=== PATIENT | female | born 1960 | race Caucasian/White ===

== ENCOUNTER 2021-11-01 01:08 | Emergency (ER) | payer BC, MEDICAID, SELFPAY ==
[2021-11-01 01:09] VITALS: PULSE 85; RESP 18; TEMP 36.6; O2SAT 95; BMI 31.5
--- NOTE | 2021-11-01 01:14 | EDS_ITS ---
HPI HPI - Fall History of Present Illness Chief Complaint: Fall Detail of Chief Complaint: Lateral left thigh pain status post fall Informant: patient Occured/Mechanism Occurred: Today (At 12 noon) Mechanism/Context: Yes slip Narrative: Slipped on ice Fall from Height (ft): Attending physician Usually ambulates: Without assistance Pain/Injury Pain Location: lower extremity (Lateral left thigh) Quality of Pain: Dull and Aching Current Severity: Mild Maximum Severity: Moderate Worsened by: Sitting and walking Relieved by: Nothing Associated Symptoms Associated Symptoms: Negative for Parasthesias, Weakness, Loss of function, Inability to ambulate, Loss of consciousness and Amnesia Narrative Narrative: Patient is 61-year-old woman who slipped on ice. She landed on her left side. She had minimal pain when this occurred. She has increased pain and reason she presents. She is on a baby aspirin a day. She is on no anticoagulant. Tetanus Immunization: >10 years Prior similar symptoms: No Recent Illness/Hospitalization: No PFSH PFSH Home Medications hydrocodone-acetaminophen 1 tab PO Q6H PRN PRN 3 Days #10 tablet 11/01/21 [Rx Last Taken Unknown] Allergy/AdvReac Type Severity Reaction Status Date / Time acetaminophen Allergy Hives Verified 11/01/21 01:18 [From Tylenol-Codeine #3] codeine Allergy Hives Verified 11/01/21 01:18 [From Tylenol-Codeine #3] amoxicillin [From Augmentin] AdvReac Other Verified 11/01/21 01:18 clavulanic acid AdvReac Other Verified 11/01/21 01:18 [From Augmentin] Penicillins AdvReac Other Verified 11/01/21 01:18 Sulfa (Sulfonamide AdvReac Rash Verified 11/01/21 01:18 Antibiotics) Social History (Updated 11/01/21 @ 01:[address] Chuy Tejeda MD) household members: spouse substance use type: does not use ROS ROS ED Constitutional Constitutional ED: Denies chills, fever(s), subjective, sweats or weight loss Eyes Eyes: Denies blurry vision, change in vision or diplopia Cardiovascular Cardiovascular: Denies chest pain Respiratory/Chest Respiratory/Chest: Denies dyspnea Genitourinary Genitourinary ED: Denies dysuria, hematuria or urinary frequency Musculoskeletal Musculoskeletal: Reports other Details: Left thigh ; Denies arthralgias, back pain, myalgias or neck pain Integumentary Denies abscess, Abrasions or rash Neurologic Neurologic: Denies paresthesias or weakness Hematologic/Lymphatic Hematologic/Lymphatic: Denies easy bleeding or easy bruising EXAM Physical Exam Const Vital Signs: 11/01/21 01:09 Temperature 98 F Temperature Source Temporal Pulse Rate 85 Respiratory Rate 18 Pulse Ox 95 Oxygen Delivery Method Room Air Positive well nourished, well developed and obese General Appearance ED: well developed and NAD Nutritional Appearance: obese HEENT Reports normocephalic and TM's clear; Denies other atraumatic; Negative for contusion, hematoma or other Tympanic Membrane ED: Yes TM's clear Eyes PERRL and EOMs intact bilaterally General Eye ED: Negative for pale conjunctiva or scleral icterus Neck full ROM, no lymphadenopathy and supple Neck Narrative: C-spine cleared per Nexus criteria. Resp normal respiratory effort Cardio regular rate and regular rhythm Back/Spine no CVA tenderness Extremity full ROM, normal capillary refill, no joint enlargement, no clubbing, cyanosis or edema, no calf tenderness and no pedal edema; Negative for normal to inspection General Extremety ED: Yes normal exam except as noted General Extremity: normal exam except as noted Left Lower Extremity: upper leg Positive for other (Hematoma lateral left thigh) Neuro oriented x3, CN's II-XII intact bilaterally and moves all extremities [place] Coma Scale: document GCS findings Spontaneous Obeys Commands Oriented 15 Sensorium / Orientation: alert Motor Exam: strength 5/5 throughout Psych mental status grossly normal and thought process normal Skin General Skin Exam: other Hematoma left thigh Lesions: no lesions Rashes: no rashes Trauma: Negative for abrasion, laceration or puncture MDM MDM MDM Narrative Medical decision making narrative: Patient has a hematoma. She is able to move all of her extremities. She has no pain the patient of the pelvis, iliac wing, pubic symphysis or ischial tuberosity. There is pain ovation where she has a hematoma. Since she is status post renal transplant she was treated with opiate analgesics. Discharge Plan Triage Chief Complaint: Fall ED Provider: Chuy Tejeda Dx/Rx/DC Orders Clinical Impression: Contusion of left hip and thigh Instructions: ED Hip Contusion Prescriptions: New hydrocodone-acetaminophen [hydrocodone-acetaminophen] 1 TABLET tablet 1 tab PO Q6H PRN PRN (Reason: Pain) 3 Days Qty: 10 RF: 0 Referrals: Doctor,Your [STAFF PHYSICIAN] - 1 Week if not improving Activity Restrictions/Additional Instructions: Apply ice to left thigh 6-8 times a day for the next 3 to 5 days Disposition Disposition: Home, Self Care
[2021-11-01] MEDS: HYDROcodone Bitartrate/Apap 5/325 Tablet PO (01:39)
== END 2021-11-01 01:42 | disposition home or self-care (01) ==
LOC: ED 01:34
PROVIDERS: Emergency Provider Emergency Medicine; PCP Internal Medicine; Visit Provider Emergency Medicine
DX: S70.02XA Contusion of left hip, initial encounter (principal); W00.0XXA Fall on same level due to ice and snow, initial encounter; Z94.0 Kidney transplant status
CPT/HCPCS: 99282

== ENCOUNTER 2023-10-12 16:07 | Emergency (ER) | payer BC, MEDICAID, SELFPAY ==
[2023-10-12] VITALS (8 sets, daily range): BP systolic 110–188; BP diastolic 62–141; PULSE 108–119; RESP 19–28; TEMP 37.2; O2SAT 85–94; BMI 33.5
--- NOTE | 2023-10-12 17:40 | EX.ED.DYSGE1 ---
HPI History of Present Illness Chief Complaint: General Illness Informant: patient and spouse/S.O. Narrative Narrative: Here with significant other not feeling well since yesterday nausea and vomiting total 3 episodes no hematemesis. Slight loose stools. No fevers or headaches. Slight myalgias. Slight cough. History of renal transplant 4 years ago on immunosuppressants. Did not take her medications this morning. History of diabetes. 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 Denies urinary symptoms. She did get the flu vaccination this year. Denies sick contacts. 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 Home Medications amlodipine 5 mg tablet 5 mg PO DAILY BLOOD PRESSURE 11/01/21 [History Last Taken Unknown] everolimus (immunosuppressive) 0.5 mg tablet 0.5 mg PO Q12H TRANSPLANT REJECTION PREVENTATIVE 11/01/21 [History Last Taken Unknown] glimepiride 1 mg tablet 1 mg PO DAILY BLOOD SUGARS 11/01/21 [History Last Taken Unknown] levothyroxine 50 mcg tablet 50 mcg PO DAILY THYROID 11/01/21 [History Last Taken Unknown] metformin 500 mg tablet 500 mg PO DAILY BLOOD SUGARS 11/01/21 [History Last Taken Unknown] omeprazole 20 mg capsule,delayed release 20 mg PO DAILY ACID REFLUX 11/01/21 [History Last Taken Unknown] pravastatin 40 mg tablet 40 mg PO DAILY CHOLESTEROL 11/01/21 [History Last Taken Unknown] prednisone 5 mg tablet 5 mg PO DAILY STEROID 11/01/21 [History Last Taken Unknown] tacrolimus 1 mg capsule, immediate-release 1 mg PO Q12H TRANSPLANT REJECTION PREVENTATIVE 11/01/21 [History Last Taken Unknown] aspirin 81 mg tablet,delayed release (Adult Aspirin Regimen) 81 mg PO DAILY HEART HEALTH 10/12/23 [History Last Taken Unknown] ergocalciferol (vitamin D2) 50 mcg (2,000 unit) capsule 50 mcg PO DAILY SUPPLEMENT 10/12/23 [History Last Taken Unknown] hydrocodone-acetaminophen 5-325mg 5mg-325mg 1 tab PO Q6H PRN PAIN 10/12/23 [History Last Taken Unknown] pantoprazole 40 mg tablet,delayed release 40 mg PO DAILY ACID REFLUX 10/12/23 [History Last Taken Unknown] Allergy/AdvReac Type Severity Reaction Status Date / Time acetaminophen Allergy Hives Verified 10/12/23 16:09 [From Tylenol-Codeine #3] Cephalosporins Allergy Other Verified 10/12/23 16:16 codeine Allergy Hives Verified 10/12/23 16:09 [From Tylenol-Codeine #3] doxycycline Allergy Hives Verified 10/12/23 16:16 amoxicillin [From Augmentin] AdvReac Other Verified 10/12/23 16:09 clavulanic acid AdvReac Other Verified 10/12/23 16:09 [From Augmentin] Penicillins AdvReac Other Verified 10/12/23 16:09 Sulfa (Sulfonamide AdvReac Rash Verified 10/12/23 16:09 Antibiotics) Surgical History Kidney transplant status Social History household members: spouse Smoking Status: Never smoker substance use type: does not use ROS ROS ED Constitutional Constitutional ED: Denies chills, fever(s) or sweats Eyes Eyes: Denies change in vision ENT ENT ED: Denies dysphagia or sore throat Cardiovascular Cardiovascular: Denies chest pain, leg edema, palpitations or racing heartbeat Respiratory/Chest Respiratory/Chest: Reports cough; Denies dyspnea or dyspnea on exertion Gastrointestinal Gastrointestinal: Reports diarrhea, nausea and vomiting; Denies abdominal pain Genitourinary Genitourinary ED: Denies dysuria, hematuria or urinary frequency Musculoskeletal Musculoskeletal: Reports myalgias; Denies back pain, extremity pain or neck pain Integumentary Denies rash or wounds Neurologic Neurologic: Denies headache(s), paresthesias or weakness EXAM Physical Exam Const Vital Signs: 10/12/23 16:09 10/12/23 17:39 10/12/23 19:31 Temperature 99 F Temperature Source Temporal Pulse Rate 118 H Respiratory Rate 22 H Respiratory Effort Normal Non-Labored Respiratory Pattern Normal Blood Pressure 123/62 H Blood Pressure Mean 82 Pulse Ox 94 85 Oxygen Delivery Method Room Air Room Air Oxygen Flow Rate (L/min) 10/12/23 19:31 10/12/23 19:32 10/12/23 19:24 Temperature Temperature Source Pulse Rate 119 H Respiratory Rate 28 H Respiratory Effort Respiratory Pattern Blood Pressure Blood Pressure Mean Pulse Ox 90 92 85 Oxygen Delivery Method Nasal Cannula Nasal Cannula Oxygen Flow Rate (L/min) 3 4 10/12/23 20:29 10/12/23 21:01 10/12/23 22:01 Temperature Temperature Source Pulse Rate 108 H 110 H 119 H Respiratory Rate 28 H 22 H 19 H Respiratory Effort Respiratory Pattern Blood Pressure 110/88 H 188/141 H Blood Pressure Mean 96 149 176 Pulse Ox 92 93 Oxygen Delivery Method Oxygen Flow Rate (L/min) 10/12/23 23:00 Temperature Temperature Source Pulse Rate Respiratory Rate Respiratory Effort Respiratory Pattern Blood Pressure 111/76 Blood Pressure Mean 87 Pulse Ox Oxygen Delivery Method Oxygen Flow Rate (L/min) Positive well nourished and well developed Constitutional Narrative: Nontoxic General Appearance ED: well developed and NAD HEENT HEENT Narrative: Mild dry mucosal membranes normocephalic and atraumatic Eyes PERRL, EOMs intact bilaterally and conjunctivae normal General Eye ED: Yes normal appearance of both eyes Neck no lymphadenopathy and supple General: Negative for tenderness Chest Wall Chest: Negative for tenderness Resp normal respiratory effort and normal air movement Effort and Inspection: symmetric chest movement; Negative for respiratory distress Cardio regular rhythm and no murmurs Rate: tachycardic Peripheral Pulses: pulses 2+ throughout GI normal to inspection, nondistended, normoactive bowel sounds and non-tender GI Narrative: Negative Rapp's or McBurney's tenderness. Palpation: Negative for guarding or rebound tenderness present Back/Spine no CVA tenderness and no thoracic nor lumbar tenderness Extremity normal to inspection General Extremety ED: Negative for edema or tenderness General Extremity: Negative for edema Neuro oriented x3 and no sensory deficits noted Sensorium / Orientation: awake and alert Skin no rashes or lesions noted and no wounds Sepsis Attestation Sepsis Attestation: Agree w/Sepsis Date exam was performed: 10/12/23 Time exam was performed: 22:50 Possible Source of Sepsis: Pulmonary Sepsis Organ Dysfunction Criteria Present: Creatinine > 2.0 mg/dL Fluid Resuscitation Fluid Resuscitation ordered: Lesser volume fluid bolus ordered (Fluid given for dehydration and renal sufficiency. Does not meet criteria for 30 cc/kg bolus.) Amount of fluid ordered: 1,000 Reason for lesser fluid bolus:: Renal Failure and Other MDM MDM MDM Narrative Medical decision making narrative: Interventions / MDM: Differential diagnosis: Pneumonia, sepsis, electrolyte abnormalities, viral syndrome, dehydration Diagnosis considered but do not suspect: UTI, urine negative for infection My EKG interpretation: N/A Imaging independently reviewed and interpreted by myself: 2 view chest x-ray: Left lower lobe infiltrate. CT scan abdomen pelvis noncontrast: Obstructive uropathy with 2 stones with hydro-. This was discussed with radiology. External documents reviewed: N/A Test considered but not ordered:N/A ED course: Patient afebrile slight tachycardia. Dry mucosal membranes. IV established for fluids. Basic labs. Chest x-ray, COVID and influenza sent for further evaluation. Zofran ordered for nausea. Patient allergy to Tylenol. She has renal transplant history therefore avoid NSAIDs. COVID and influenza returned negative. Her white count returned at 23.6. With her tachycardia I did add sepsis labs with lactic acid blood cultures procalcitonin along with urine and urine cultures. Creatinine returned at 2.5, normal potassium. No old labs in the system compare however patient had MyChart on her phone her creatinine 1.325 days ago. Lactic acid 2.0 procalcitonin 8.6. Patient with multiple allergies to penicillin family along with cephalosporin. Discussed her cephalosporin stating increasing anxiety and causing her not to sleep. She did not want to risk the symptoms. Reevaluation hypoxic pulse ox 86 with good waveform she is placed on oxygen. She spoke with hospitalist Dr. Noble, who did evaluate patient in the ED. We elected to start Levaquin and vancomycin with her transplant history and allergies. She came to evaluate the patient in the ED. ABG was ordered pH 7.31, CO2 25 PaO2 of 64. Ordered for noncontrast CT scan for evaluation of her MAXIMO. Results CT scan concerns for obstructive uropathy urine negative for infection. Due to patient having obstructive uropathy in a transplanted organ, she required transfer. Page was placed out to [facility] with transplant physician Dr. Brown discussed patient's history findings with pneumonia and hypoxia MAXIMO in the setting obstructive uropathy with no infection or pain in her abdomen. She has been excepted and arrangements currently being made for transfer up to [facility]. Blood pressure maintaining. Patient in no respiratory distress. Re-evaluation: stable Disposition discussed with patient/family/significant other: Patient and significant other Case discussed with consulting clinician: Hospitalist, renal transplant [facility], This note was generated with DoYouRemember dictation software. It may contain incorrect words, spelling, and punctuation that were not noted in checking the note before signing. Lab Data Attestation: I reviewed the patient's lab results. Labs: Laboratory Results - last 24 hr 10/12/23 10/12/23 10/12/23 17:52 18:20 19:27 WBC 23.6 H RBC 4.93 Hgb 12.7 Hct 40.4 MCV 81.9 MCH 25.8 L MCHC 31.4 L RDW Std Deviation 47.5 H RDW Coeff of Sea 15.9 H Plt Count 245 MPV 10.9 Immature Gran % (Auto) 0.800 Neut % (Auto) 82.6 H Lymph % (Auto) 4.4 L [place] % (Auto) 5.8 Eos % (Auto) 5.9 H Baso % (Auto) 0.5 Absolute Neuts (auto) 19.5 H Absolute Lymphs (auto) 1.03 Nucleated RBC % 0 Differential Comment SCANNED PT 17.1 H INR 1.4 APTT 35.1 Sodium 134 L Potassium 3.8 Chloride 110 H Carbon Dioxide 16.0 L Anion Gap 8 BUN 31 H Creatinine 2.55 H Estim Creat Clear Calc 15.80 Est GFR (MDRD) Af Amer 24 L Est GFR (MDRD) Non-Af 20 L BUN/Creatinine Ratio 12.2 Glucose 125 H Lactic Acid 2.0 Calcium 9.2 Total Bilirubin 0.60 Direct Bilirubin 0.28 AST 27 ALT 28 Alkaline Phosphatase 95 Total Protein 6.5 Albumin 2.8 L Globulin 3.7 Procalcitonin 8.16 H Urine Color Yellow Urine Clarity Clear Urine pH 6.5 Ur Specific [place] 1.010 Urine Protein 500 H Urine Glucose (UA) 250 H Urine Ketones 15 H Urine Occult Blood 150 H Urine Nitrite Negative Urine Bilirubin Negative Urine Urobilinogen Normal Ur Leukocyte Esterase Negative Urine RBC 0-5 SEEN Urine WBC 5-10 SEEN Ur Squamous Epith Cells 0 SEEN Urine Bacteria 0 SEEN Urine Mucus 0 SEEN 10/12/23 10/12/23 21:00 22:35 WBC RBC Hgb Hct MCV MCH MCHC RDW Std Deviation RDW Coeff of Sea Plt Count MPV Immature Gran % (Auto) Neut % (Auto) Lymph % (Auto) [place] % (Auto) Eos % (Auto) Baso % (Auto) Absolute Neuts (auto) Absolute Lymphs (auto) Nucleated RBC % Differential Comment PT INR APTT Sodium 139 Potassium 3.8 Chloride 115 H Carbon Dioxide 18.0 L Anion Gap 6 BUN 30 H Creatinine 2.39 H Estim Creat Clear Calc 16.86 Est GFR (MDRD) Af Amer 26 L Est GFR (MDRD) Non-Af 22 L BUN/Creatinine Ratio 12.6 Glucose 159 H Lactic Acid 1.3 Calcium 8.4 L Total Bilirubin Direct Bilirubin AST ALT Alkaline Phosphatase Total Protein Albumin Globulin Procalcitonin Urine Color Urine Clarity Urine pH Ur Specific [place] Urine Protein Urine Glucose (UA) Urine Ketones Urine Occult Blood Urine Nitrite Urine Bilirubin Urine Urobilinogen Ur Leukocyte Esterase Urine RBC Urine WBC Ur Squamous Epith Cells Urine Bacteria Urine Mucus ABG Data ABG results: ABG 10/12/23 20:26 Specimen Type ART Sample Site L Radial pH 7.32 L Bicarbonate Actual 12.8 L Total CO2 14 Base Excess -13 L O2 Saturation 91 L O2 % 4.0 ABG pCO2 25.0 L ABG pO2 64 L Darrick Test Positive O2 Delivery Device Cannula Vent Mode Not entered Radiography Diagnostic Testing: Clinical Impression(s) from Imaging Studies Chest X-Ray 10/12/23 18:10 IMPRESSION: 1. Left lower lobe pneumonia with possibly lingular pneumonia. 2. Cardiomegaly. Electronically Signed: Elliot Marquez MD at 18:20 EST , Abdomen/Pelvis CT 10/12/23 19:50 IMPRESSION: 1. Obstructing stones at the ureterovesical junction of the right pelvic renal transplant with mild ureteral dilatation and hydronephrosis with the largest stone measuring 4 mm. 2. Left lower lobe pneumonia. 3. Fatty infiltration of liver. 4. Sigmoid diverticulosis without diverticulitis. N.B. : The above Results were Read Back by Elliot Marquez MD to Kobi aVnn DO, and understanding confirmed on 10/12/2023 21:09:21 (ET). Electronically Signed: Elliot Marquez MD at 21:12 EST , ADDENDUM: 10/12/232117 IMPRESSION: 1. Obstructing stones at the ureterovesical junction of the right pelvic renal transplant with mild ureteral dilatation and hydronephrosis with the largest stone measuring 4 mm. 2. Left lower lobe pneumonia. 3. Fatty infiltration of liver. 4. Sigmoid diverticulosis without diverticulitis. N.B. : The above Results were Read Back by Elliot Marquez MD to Kobi Vann DO, and understanding confirmed on 10/12/2023 21:09:21 (ET). Electronically Signed: Elliot Marquez MD at 21:12 EST , Critical Care Time Critical Care Time: Yes Critical care time (excluding procedures): 30-74 minutes, Discussing w/Patient &/or Family/Radarman, Discussing w/Consultants, Arranging Admission or Transfer, Performing Direct Patient Care at Bedside and - (45 minutes) Discharge Plan Triage Chief Complaint: General Illness ED Provider: Kobi Vann Dx/Rx/DC Orders Clinical Impression: MAXIMO (acute kidney injury), Obstruction, uropathy, Hypoxia, LLL pneumonia, Kidney transplant recipient, Sepsis Prescriptions: No Action metformin 500 mg Tablet 500 mg PO DAILY pravastatin 40 mg Tablet 40 mg PO DAILY prednisone 5 mg Tablet 5 mg PO DAILY amlodipine 5 mg tablet 5 mg PO DAILY glimepiride 1 mg Tablet 1 mg PO DAILY levothyroxine 50 mcg Tablet 50 mcg PO DAILY omeprazole 20 mg Capsule,Delayed Release(Dr/Ec) 20 mg PO DAILY tacrolimus 1 mg Capsule 1 mg PO Q12H everolimus (immunosuppressive) 0.5 mg Tablet 0.5 mg PO Q12H hydrocodone-acetaminophen [hydrocodone-acetaminophen] 1 TABLET tablet 1 tab PO Q6H PRN (Reason: PAIN ) pantoprazole 40 mg tablet,delayed release (DR/EC) 40 mg PO DAILY aspirin [Adult Aspirin Regimen] 81 mg tablet,delayed release (DR/EC) 81 mg PO DAILY ergocalciferol (vitamin D2) 50 mcg (2,000 unit) capsule 50 mcg PO DAILY Primary Care Provider: Tejal Calles Referrals: Tejal Calles MD [Primary Care Provider] - Disposition Disposition: DC/Tx to Another Type of HCF
[2023-10-12 17:57] LABS: Absolute Lymphocyte Count 1.03 X10^3/uL (0.83-4.51); Absolute Neutrophil Count 19.5 X10^3/uL (2.0-7.7); Basophil# 0.11 X10^3/uL; Basophil% 0.5 % (0-1); Eosinophils% 5.9 % (0-5); Hematocrit 40.4 % (37-47); Hemoglobin 12.7 g/dL (12.0-15.0); Lymphocyte # 1.03 X10^3/ul (0.83-4.51); Lymphocyte % 4.4 % (19-41); Mean Corp Hgb Conc 31.4 g/dL (32-36); Mean Corpuscular Hgb 25.8 pg (27.0-32.0); Mean Corpuscular Volume 81.9 fL (81-99); Mean Platelet Vol. 10.9 fl (6.2-12.0); Monocyte# 1.38 X10^3/uL; Monocyte% 5.8 % (0-10); NRBC Flagged by Analyzer 0 % (0-5); Neutrophil % 82.6 % (47-70); POSITIVE MORPHOLOGY YES; Platelet Count 245 K/mm3 (150-450); RBC Distribution Width CV 15.9 % (11.6-14.6); RBC Distribution Width SD 47.5 fl (35.1-43.9); Red Blood Count 4.93 M/mm3 (4.2-5.4); White Blood Count 23.6 K/mm3 (4.4-11.0)
--- OUTSIDE RECORDS SUMMARY | 2023-10-12 17:58 | XMS RPT_ITS | CCD ---
Author Name Unknown Address [address] [place] [address] Organization [facility] Care Team Providers Care Chief Passenger Ship Steward/Stewardess Name Role Phone Marli HART, Tameka Primary Care Provider [phone] Nate MACIAS, Heber Unavailable Unavailable Junaid HART, Benico Unavailable Marli HART, Tameka Primary Care Provider Nate MACIAS, Heber Unavailable Unavailable Junaid HART, Benico Unavailable Liz Bell RN Unavailable Lzi Bell RN Unavailable Lisa Diamond RN Unavailable Unavailable Marli HART, Tameka Primary Care Provider Heber Sullivan RN Unavailable Unavailable Junaid HART, Benico Unavailable [phone] Dara MACIAS, Lisa Unavailable Unavailable Daar RN, Lisa Unavailable Unavailable Junaid HART, Benico Unavailable [phone] Kateryna GUPTA, Bari Unavailable Marli HART, Tameka Primary Care Provider Estephania Bill RN Unavailable [phone] Junaid HART, Benico Unavailable Estephania Bill RN Unavailable IRAIS MURPHY Referring Unavailable GANTA, TAMEKA Primary Care Unavailable OZIEL, AP Referring Unavailable GANTA, TAMEKA Primary Care Unavailable GANTA, TAMEKA Primary Care Unavailable GANTA, TAMEKA Primary Care Unavailable GANTA, TAMEKA Attending Unavailable GANTA, TAMEKA Primary Care Unavailable OZIEL, AP Referring Unavailable GANTA, ATMEKA Primary Care Unavailable OZIEL, AP Referring Unavailable GANTA, TAMEKA Primary Care Unavailable SAMBERG, BARI Referring Unavailable GANTA, TAMEKA Primary Care Unavailable TESTRENITA CHAPARRO Referring Unavailable TESTRARENITA MOSES Attending Unavailable GANTA, TAMEKA Primary Care Unavailable GANTA, TAMEKA Primary Care Unavailable GANTA, TAMEKA Primary Care Unavailable GANTA, TAMEKA Primary Care Unavailable GANTA, TAMEKA Primary Care Unavailable ARABELLA PANDEY Referring Unavailable GANTA, TAMEKA Primary Care Unavailable SAMBERG, BARI Referring Unavailable GANTA, TAMEKA Primary Care Unavailable TESTRARENITA MOSES Attending Unavailable GANTA, TAMEKA Primary Care Unavailable GANTA, TAMEKA Primary Care Unavailable SAMBERG, BARI Referring Unavailable GANTA, TAMEKA Primary Care Unavailable NURDRISS ASHTON Referring Unavailable GANTA, TAMEKA Primary Care Unavailable GANTA, TAMEKA Primary Care Unavailable SAMBERG, BARI Referring Unavailable GANTA, TAMEKA Primary Care Unavailable GANTA, TAMEKA Primary Care Unavailable AP LUDWIG Attending Unavailable GANTA, TAMEKA Primary Care Unavailable RIVER RUFFIN Referring Unavailable OLDER, KAYLEN Referring Unavailable GANTA, TAMEKA Primary Care Unavailable DORIE ZUÑIGA Attending Unavailable GANTA, TAMEKA Primary Care Unavailable GANTA, TAMEKA Primary Care Unavailable GANTA, TAMEKA Referring Unavailable TESTRAKERENITA Attending Unavailable GANTA, TAMEKA Primary Care Unavailable Allergies Allergy Classification Reported Allergen(s) Allergy Type Date of Onset Reaction(s) Facility (20 sources) Acetaminophen / Codeine; Translations: [ACETAMINOPHEN-COD EINE] Drug Allergy 05-25-20 05 Hives [facility] Work Phone: (20 sources) Amoxicillin / Clavulanate; Translations: [AMOXICILLIN-POT CLAVULANATE] Drug Allergy 05-25-20 05 Mental Status Change [facility] Work Phone: (5 sources) Cephalosporins (Antibiotic); Translations: [CEPHALOSPORINS] Drug Allergy 10-02-19 13 Other: See Comments [facility] (20 sources) Grass pollen; Translations: [GRASS POLLEN] Drug Allergy 03-17-20 12 Itching [facility] (20 sources) House dust mite; Translations: [DUST MITES] Allergy to substance 02-11-20 12 Unknown [facility] (5 sources) Penicillins; Translations: [PENICILLINS] Drug Intolerance 05-25-20 05 Mental Status Change [facility] Work Phone: (20 sources) Seasonal allergy; Translations: [SEASONAL ALLERGIES] Propensity to adverse reactions 03-13-20 10 [facility] (20 sources) Sulfonamides (Antibiotic); Translations: [SULFA (SULFONAMIDE ANTIBIOTICS)] Drug Intolerance 05-25-20 05 Rash [facility] Work Phone: (20 sources) Cephalosporins (Antibiotic) Drug Allergy 10-02-19 13 Other: See Comments [facility] (20 sources) Penicillins Drug Intolerance 05-25-20 05 Mental Status Change [facility] Work Phone: (20 sources) Doxycycline; Translations: [DOXYCYCLINE HYCLATE] Drug Allergy 08-06-20 Diarrhea, GI Upset, Vomiting [facility] Work Phone: Medications Current Medications Medication Drug Class(es) Dates Sig (Normalized) Sig (Original) doxycycline hyclate 100 mg oral tablet (1 source) Tetracycline-clas s Drug Start: 07-17-2022 End: 07-27-2022 take 1 tablet by mouth twice daily doxycycline (VIBRA-TABS) 100 mg tablet Take 1 tablet by mouth twice daily for 10 days. 20 tablet 0 07/17/2022 07/27/2022 Active Completed/Discontinued Medications Medication Drug Class(es) Dates Sig (Normalized) Sig (Original) amLODIPine 5 mg oral tablet (20 sources) Dihydropyridine Calcium Channel Chasity Start: 11-18-2021 End: 04-19-2023 take 1 tablet by mouth once daily amLODIPine (NORVASC) 5 mg tablet TAKE ONE TABLET BY MOUTH EVERY DAY 90 tablet 1 04/19/2023 Active Problems Active Problems Problem Classification Problem Date Documented Date Episodic/Chronic Abdominal hernia (20 sources) Hiatal hernia; Translations: [Diaphragmatic hernia without obstruction or gangrene] 10-29-2011 Episodic Blindness and vision defects (20 sources) Blind left eye; Translations: [Blindness, one eye, unspecified eye] 09-07-2021 Chronic Cataract (20 sources) Combined form of senile cataract; Translations: [Combined forms of age-related cataract, unspecified eye] Onset: 5 07-03-2015 Chronic Chronic kidney disease (20 sources) Chronic kidney disease stage 3; Translations: [CKD (chronic kidney disease) stage 3, GFR 30-59 ml/min] Onset: 2 09-07-2021 Chronic Complication of device; implant or graft (1 source) Renal transplant rejection; Translations: [Kidney transplant rejection] Chronic Diabetes mellitus with complications (20 sources) Polyneuropathy due to type 2 diabetes mellitus; Translations: [Type 2 diabetes mellitus with diabetic polyneuropathy] Onset: 0 01-15-2021 Chronic Diabetes mellitus without complication (9 sources) Type 2 diabetes mellitus without complication; Translations: [Type 2 diabetes mellitus without complications] Onset: 3 Chronic Diabetes mellitus without complication (1 source) Diabetes mellitus without complication; Translations: [Type 2 diabetes mellitus with stage 3a chronic kidney disease, without long-term current use of insulin ([facility])] Onset: 2 Disorders of lipid metabolism (20 sources) Hyperlipidemia; Translations: [Hyperlipidemia, unspecified] Onset: 2 10-25-2011 Chronic Esophageal disorders (20 sources) Gastroesophageal reflux disease; Translations: [Gastro-esophageal reflux disease without esophagitis] Onset: 2 10-29-2011 Chronic Essential hypertension (20 sources) Essential hypertension; Translations: [Essential (primary) hypertension] Onset: 2 Chronic Gout and other crystal arthropathies (20 sources) Gout; Translations: [Gout, unspecified] Onset: 1 09-07-2021 Chronic Immunity disorders (18 sources) Drug-induced immunodeficiency ; Translations: [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) ([facility])] Onset: 3 Chronic Menstrual disorders (20 sources) Primary amenorrhea; Translations: [Primary amenorrhea] 09-07-2021 Chronic Mycoses (1 source) Onychomycosis; Translations: [Tinea unguium] 05-18-2023 Episodic Neoplasms of unspecified nature or uncertain behavior (20 sources) Benign monoclonal gammopathy; Translations: [Monoclonal gammopathy] Onset: 6 04-26-2016 Chronic Nutritional deficiencies (3 sources) Vitamin D deficiency; Translations: [Vitamin D deficiency, unspecified] Onset: 3 Chronic Osteoarthritis (20 sources) Osteoarthritis; Translations: [Unspecified osteoarthritis, unspecified site] Onset: 0 09-07-2021 Chronic Other aftercare (1 source) Encounter for aftercare following kidney transplant; Translations: [Encounter for aftercare following kidney transplant] Onset: Chronic Other aftercare (2 sources) Transplant follow-up; Translations: [Other retirement (current) drug therapy] Episodic Other aftercare (1 source) Patient encounter status; Translations: [Encounter for therapeutic drug level monitoring] 04-21-2023 Episodic Other and unspecified benign neoplasm (2 sources) History of polyp of colon; Translations: [Personal history of colonic polyps] Episodic Other bone disease and musculoskeletal deformities (1 source) Other specified disorders of bone density and structure, unspecified site; Translations: [Osteopenia, unspecified location] Onset: Episodic Other congenital anomalies (20 sources) Monosomy X; 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, X] Onset: 7 04-29-2017 Chronic Other connective tissue disease (1 source) Pain of toe of left foot; Translations: [Pain in left toe(s)] 05-18-2023 Episodic Other connective tissue disease (1 source) Pain of toe of right foot; Translations: [Pain in right toe(s)] 05-18-2023 Episodic Other connective tissue disease (1 source) Pain in finger of right hand; Translations: [Pain in right finger(s)] 06-06-2023 Episodic Other connective tissue disease (1 source) Pain in hallux; Translations: [Pain in left toe(s)] 06-06-2023 Episodic Other diseases of kidney and ureters (20 sources) Hyperparathyroidism due to renal insufficiency; Translations: [Secondary hyperparathyroidism of renal origin] Onset: 5 08-29-2015 Chronic Other ear and sense organ disorders (20 sources) Hearing loss; Translations: [Unspecified hearing loss, unspecified ear] 09-07-2021 Chronic Other endocrine disorders (20 sources) Growth hormone deficiency; Translations: [Hypopituitarism] 03-28-2020 Chronic Other eye disorders (20 sources) Drusen of optic disc; Translations: [Drusen of optic disc, unspecified eye] Onset: 4 05-16-2014 Chronic Other eye disorders (20 sources) Bilateral vitreous floaters; Translations: [Other vitreous opacities, bilateral] Onset: 5 07-03-2015 Chronic Other lower respiratory disease (1 source) Cough; Translations: [Acute cough] Episodic Other nervous system disorders (20 sources) Carpal tunnel syndrome of right wrist; Translations: [Carpal tunnel syndrome, right upper limb] Onset: 2 11-22-2011 Chronic Other nervous system disorders (20 sources) Carpal tunnel syndrome of left wrist; Translations: [Carpal tunnel syndrome, left upper limb] Onset: 2 11-22-2011 Chronic Other nutritional; endocrine; and metabolic disorders (20 sources) Hypercalcemia; Translations: [Hypercalcemia] Onset: 3 07-27-2013 Chronic Other nutritional; endocrine; and metabolic disorders (20 sources) Obese class I; Translations: [Obesity, unspecified] Onset: 9 02-22-2019 Chronic Other screening for suspected conditions (not mental disorders or infectious disease) (20 sources) Electrocardiogram abnormal; Translations: [Abnormal electrocardiogram [ECG] [EKG]] Onset: 2 06-16-2012 Episodic Other skin disorders (1 source) Keratosis; Translations: [Epidermal thickening, unspecified] 05-18-2023 Episodic Other upper respiratory infections (1 source) Acute upper respiratory infection; Translations: [Acute upper respiratory infection, unspecified] Episodic Otitis media and related conditions (1 source) Acute right otitis media; Translations: [Otitis media, unspecified, right ear] Episodic Residual codes; unclassified (20 sources) Obstructive sleep apnea syndrome; Translations: [Obstructive sleep apnea (adult) (pediatric)] Onset: 9 12-03-2020 Chronic Superficial injury; contusion (1 source) Contusion of left great toe; Translations: [Contusion of left great toe without damage to nail, initial encounter] 05-18-2023 Episodic Thyroid disorders (20 sources) Hypothyroidism; Translations: [Hypothyroidism, unspecified] Onset: 2 02-28-2012 Chronic Viral infection (1 source) Disease due to BK polyomavirus; Translations: [Other viral infections of unspecified site] Episodic Past or Other Problems Problem Classification Problem Date Documented Date Episodic/Chronic Acquired foot deformities (20 sources) Talipes planus; Translations: [Flat foot [pes planus] (acquired), unspecified foot] Onset: 10-25-2012 09-17-2016 Episodic Allergic reactions (20 sources) Environmental allergy; Translations: [Other allergy status, other than to drugs and biological substances] Onset: 06-06-2009 06-06-2009 Episodic Blindness and vision defects (20 sources) Presbyopia; Translations: [Presbyopia] Onset: 05-16-2014 05-16-2014 Episodic Fracture of upper limb (20 sources) Closed fracture finger middle phalanx; Translations: [Displaced fracture of middle phalanx of unspecified finger, initial encounter for closed fracture] Onset: 07-17-2012 07-17-2012 Episodic Immunizations and screening for infectious disease (2 sources) Needs influenza immunization; Translations: [Encounter for immunization] Onset: 10-21-2022 Episodic Intracranial injury (20 sources) Traumatic brain injury with no loss of consciousness; Translations: [Unspecified intracranial injury without loss of consciousness, initial encounter] Onset: 10-20-2005 10-20-2005 Episodic Other aftercare (1 source) Other retirement (current) drug therapy; Translations: [Immunosuppressive management encounter following kidney transplant] Onset: 10-21-2022 Episodic Other and unspecified benign neoplasm (20 sources) Hemangioma; Translations: [Hemangioma unspecified site] Onset: 07-17-2010 07-17-2010 Episodic Other connective tissue disease (20 sources) Ganglion cyst; Translations: [Ganglion, unspecified site] Onset: 11-22-2011 11-22-2011 Episodic Other connective tissue disease (20 sources) Other specified disorders of synovium and tendon, multiple sites; Translations: [Other disorders of synovium, tendon, and bursa] Onset: 10-25-2012 10-25-2012 Episodic Other connective tissue disease (1 source) Pain in right finger(s); Translations: [Finger pain, right] Onset: 06-06-2023 Episodic Other connective tissue disease (1 source) Pain in left toe(s); Translations: [Great toe pain, left] Onset: 06-06-2023 Episodic Other nervous system disorders (20 sources) Muscle twitch; Translations: [Fasciculation] Onset: 03-18-2011 03-18-2011 Episodic Other non-traumatic joint disorders (20 sources) Pain in unspecified knee; Translations: [Pain in joint, lower leg] Onset: 12-26-2009 12-26-2009 Episodic Other non-traumatic joint disorders (20 sources) Pain in lower limb; Translations: [Pain in unspecified knee] Onset: 04-13-2013 04-13-2013 Episodic Other non-traumatic joint disorders (20 sources) Shoulder joint pain; Translations: [Pain in unspecified shoulder] Onset: 12-21-2013 12-21-2013 Episodic Other skin disorders (20 sources) Skin lesion; Translations: [Disorder of the skin and subcutaneous tissue, unspecified] Onset: 04-30-2022 Episodic Results Test Name Value Interpretation Reference Range Facil ity Vital Signs Date Time Vital Sign Value Performing Clinician Arabella lity 06-06-2023 18:28-0400 Body temperature 99.39 [degF] Irais Murphy [employer] SUPERVISOR.VETERINARY TECHNICIAN ASSISTANT Work Phone: [facility] 06-06-2023 18:28-0400 Body weight 55.79 kg Irais Murphy [employer] SUPERVISOR.VETERINARY TECHNICIAN ASSISTANT Work Phone: [facility] 06-06-2023 18:28-0400 Diastolic blood pressure 68 mm[Hg] Irais Murphy [employer] SUPERVISOR.VETERINARY TECHNICIAN ASSISTANT Work Phone: [facility] 06-06-2023 18:28-0400 Heart rate 76 /min Irais Murphy [employer] SUPERVISOR.VETERINARY TECHNICIAN ASSISTANT Work Phone: [facility] 06-06-2023 18:28-0400 Respiratory rate 16 /min Iraiselena Murphy [employer] SUPERVISOR.VETERINARY TECHNICIAN ASSISTANT Work Phone: [facility] 06-06-2023 18:28-0400 SaO2% (BldA) [Mass fraction] 98 % Iraiselena Murphy [employer] SUPERVISOR.VETERINARY TECHNICIAN ASSISTANT Work Phone: [facility] 06-06-2023 18:28-0400 Systolic blood pressure 110 mm[Hg] Irais Murphy [employer] SUPERVISOR.VETERINARY TECHNICIAN ASSISTANT Work Phone: [facility] 01-19-2023 15:48-0400 Body height 127 cm Tameka Guzmán MD Work Phone: [facility] 01-19-2023 15:48-0400 Body temperature 97.9 [degF] Tameka Guzmán MD Work Phone: [facility] 01-19-2023 15:48-0400 Body weight 55.34 kg Tameka Guzmán MD Work Phone: [facility] 01-19-2023 15:48-0400 Diastolic blood pressure 62 mm[Hg] Tameka Guzmán MD Work Phone: [facility] 01-19-2023 15:48-0400 Heart rate 64 /min Tameka Guzmán MD Work Phone: [facility] 01-19-2023 15:48-0400 Respiratory rate 12 /min Tameka Guzmán MD Work Phone: [facility] 01-19-2023 15:48-0400 SaO2% (BldA) [Mass fraction] 100 % Tameka Guzmán MD Work Phone: [facility] 01-19-2023 15:48-0400 Systolic blood pressure 112 mm[Hg] Tameka Guzmán MD Work Phone: [facility] 10-20-2022 13:44-0500 Diastolic blood pressure 89 mm[Hg] Lisa Diamond RN [facility] 10-20-2022 13:44-0500 Heart rate 73 /min Lisa Diamond RN [facility] 10-20-2022 13:44-0500 Systolic blood pressure 148 mm[Hg] Lisa Diamond RN [facility] 08-06-2022 15:55-0500 Body height 134.6 cm Tameka Guzmán MD Work Phone: [facility] 08-06-2022 15:55-0500 Body temperature 98.71 [degF] Tameka Guzmán MD Work Phone: [facility] 08-06-2022 15:55-0500 Body weight 53.07 kg Tameka Guzmán MD Work Phone: [facility] 08-06-2022 15:55-0500 Diastolic blood pressure 70 mm[Hg] Tameka Guzmán MD Work Phone: [address]25-2022 15:55-0500 Heart rate 71 /min Tameka Guzmán MD Work Phone: [facility] 08-06-2022 15:55-0500 Respiratory rate 12 /min Tameka Guzmán MD Work Phone: [facility] 08-06-2022 15:55-0500 SaO2% (BldA) [Mass fraction] 97 % Tameka Guzmán MD Work Phone: [facility] 08-06-2022 15:55-0500 Systolic blood pressure 110 mm[Hg] Tameka Guzmán MD Work Phone: [facility] 07-17-2022 08:08-0400 Body weight 52.62 kg Vane Callow [employer] SUPERVISOR.VETERINARY TECHNICIAN ASSISTANT Work Phone: [facility] 07-17-2022 08:08-0400 Diastolic blood pressure 84 mm[Hg] Vane Callow [employer] SUPERVISOR.VETERINARY TECHNICIAN ASSISTANT Work Phone: [facility] 07-17-2022 08:08-0400 Heart rate 85 /min Vane Callow [employer] F[employer]ING SUPERVISOR.VETERINARY TECHNICIAN ASSISTANT Work Phone: [facility] 07-17-2022 08:08-0400 Respiratory rate 16 /min Vane Callow [employer] SUPERVISOR.VETERINARY TECHNICIAN ASSISTANT Work Phone: [facility] 07-17-2022 08:08-0400 SaO2% (BldA) [Mass fraction] 97 % Vane Callow [employer] SUPERVISOR.VETERINARY TECHNICIAN ASSISTANT Work Phone: [facility] 07-17-2022 08:08-0400 Systolic blood pressure 142 mm[Hg] Vane Callow [employer] FARMING SUPERVISOR.VETERINARY TECHNICIAN ASSISTANT Work Phone: [facility] 04-30-2022 14:37-0400 Body height 134.6 cm Tameka Guzmán MD Work Phone: [facility] 04-30-2022 14:37-0400 Body temperature 98.8 [degF] Tameka Guzmán MD Work Phone: [facility] 04-30-2022 14:37-0400 Body weight 53.98 kg Tameka Guzmán MD Work Phone: [facility] 04-30-2022 14:37-0400 Diastolic blood pressure 60 mm[Hg] Tameka Guzmán MD Work Phone: [facility] 04-30-2022 14:37-0400 Heart rate 73 /min Tameka Guzmán MD Work Phone: [facility] 04-30-2022 14:37-0400 Respiratory rate 12 /min Tameka Guzmán MD Work Phone: [facility] 04-30-2022 14:37-0400 SaO2% (BldA) [Mass fraction] 97 % Tameka Guzmán MD Work Phone: [facility] 04-30-2022 14:37-0400 Systolic blood pressure 116 mm[Hg] Tameka Guzmán MD Work Phone: [facility] 03-19-2022 15:45-0400 Body temperature 98.8 [degF] Irais Murphy [employer] SUPERVISOR.VETERINARY TECHNICIAN ASSISTANT Work Phone: [facility] 03-19-2022 15:45-0400 Body weight 53.89 kg Irais Murphy [employer] F[employer]ING SUPERVISOR.VETERINARY TECHNICIAN ASSISTANT Work Phone: [facility] 03-19-2022 15:45-0400 Diastolic blood pressure 63 mm[Hg] Irais Murphy [employer] SUPERVISOR.VETERINARY TECHNICIAN ASSISTANT Work Phone: [facility] 03-19-2022 15:45-0400 Heart rate 90 /min Irais Murphy [employer] F[employer]ING SUPERVISOR.VETERINARY TECHNICIAN ASSISTANT Work Phone: [facility] 03-19-2022 15:45-0400 Respiratory rate 21 /min Irais Murphy [employer] F[employer]ING SUPERVISOR.VETERINARY TECHNICIAN ASSISTANT Work Phone: [facility] 03-19-2022 15:45-0400 SaO2% (BldA) [Mass fraction] 99 % Irais Murphy [employer]ING SUPERVISOR.VETERINARY TECHNICIAN ASSISTANT Work Phone: [facility] 03-19-2022 15:45-0400 Systolic blood pressure 120 mm[Hg] Irais Murphy [employer] FARMING SUPERVISOR.VETERINARY TECHNICIAN ASSISTANT Work Phone: [facility] Encounters Encounter Date Encounter Type Care Provider Facility Start: 10-04-2023 End: 10-04-2023 ambulatory AP VACAR Facility:[facility] Start: 09-27-2023 End: 09-27-2023 ambulatory RENITA MEDINA Facility:[facility] Start: 09-17-2023 End: 09-18-2023 ambulatory BARI AVENDAÑO Facility:[facility] Start: 09-13-2023 End: 09-13-2023 ambulatory AP OZIEL Facility:[facility] Start: 08-26-2023 End: 08-26-2023 ambulatory [facility] Facility:[facility] Start: 08-26-2023 End: 08-26-2023 Subsequent hospital visit by physician [facility] Work Phone: Radiology Procedures Date Procedure Procedure Detail Performing Clinician Start: 08-20-2022 Mammography Mammograph y Coordinator Start: 11-19-2021 Colonoscopy Tameka guillen MD Work Phone: Start: 08-14-2021 Mammography Tameka guillen MD Work Phone: Start: 01-16-2021 Adult depression screening assessment Tameka Guzmán MD Work Phone: Start: 03-28-2020 History of renal transplant Kidney transplant status Tameka Guzmán MD Work Phone: History of renal transplant Kidney replaced by transplant Nel Guerrero MD Work Phone: History of renal transplant Encounter for aftercare following kidney transplant [facility] Work Phone: History of renal transplant Kidney replaced by transplant Driss Do MD Work Phone: History of renal transplant Kidney replaced by transplant Bari Avendaño PA-C Work Phone: History of renal transplant Kidney replaced by transplant Bari Avendaño PA-C Work Phone: History of renal transplant Kidney replaced by transplant Bill Church MD Work Phone: History of renal transplant Kidney replaced by transplant [facility] Work Phone: History of renal transplant Kidney replaced by transplant Bari Avendaño PA-C Work Phone: Plan of Treatment Date Care Activity Detail Author Start: 11-19-2026 Colonoscopy COLONOSCOPY [facility] Start: 11-19-2026 COLORECTAL CANCER SCREENING COLORECTAL CANCER SCREENING [facility] Start: 11-19-2026 Screening for malignant neoplasm of colon [facility] Start: 10-02-2026 PAP TESTING PAP TESTING [facility] Start: 08-01-2025 HPV TESTING HPV TESTING [facility] Start: 03-21-2025 PNEUMOCOCCAL (4 - PPSV23 if available, else PCV20) PNEUMOCOCCAL (4 - PPSV23 if available, else PCV20) [facility] Start: 03-21-2025 PNEUMOCOCCAL (4 - PPSV23 or PCV20) PNEUMOCOCCAL (4 - PPSV23 or PCV20) [facility] Start: 03-21-2025 Pneumococcal Vaccine: 65+ (4 - PPSV23 or PCV20) Pneumococcal Vaccine: 65+ (4 - PPSV23 or PCV20) [facility] Start: 03-21-2025 Pneumococcal Vaccine: 65+ (4 of 4 - PPSV23 or PCV20) Pneumococcal Vaccine: 65+ (4 of 4 - PPSV23 or PCV20) [facility] Start: 03-21-2025 PNEUMOCOCCAL: 65+ (4 - PPSV23 if available, else PCV20) PNEUMOCOCCAL: 65+ (4 - PPSV23 if available, else PCV20) [facility] Start: 03-21-2025 PNEUMOCOCCAL: 65+ (4 - PPSV23 or PCV20) PNEUMOCOCCAL: 65+ (4 - PPSV23 or PCV20) [facility] Start: 11-19-2024 Colonoscopy COLONOSCOPY [facility] Start: 11-19-2024 COLORECTAL CANCER SCREENING COLORECTAL CANCER SCREENING [facility] Start: 08-23-2024 Screening for malignant neoplasm of breast Mammogram Screening [facility] Start: 08-19-2024 Annual PCP Team Chronic Disease Visit Annual PCP Team Chronic Disease Visit [facility] Start: 08-19-2024 BP Controlled (<130/80) BP Controlled (<130/80) [facility] Start: 08-13-2024 Complete blood count Hemoglobin/Hematocrit [facility] Start: 08-13-2024 Creatinine measurement Serum Creatinine [facility] Start: 07-16-2024 Hemoglobin/Hematocrit Hemoglobin/Hematocrit [facility] Start: 07-16-2024 Serum Creatinine Serum Creatinine [facility] Start: 06-18-2024 Hemoglobin/Hematocrit Hemoglobin/Hematocrit [facility] Start: 06-18-2024 Hepatitis B surface antibody level LDL Cholesterol [facility] Start: 06-18-2024 Serum Creatinine Serum Creatinine [facility] Start: 06-06-2024 BP Controlled (<130/80) BP Controlled (<130/80) [facility] Start: 05-07-2024 HEMOGLOBIN/HEMATOCRIT HEMOGLOBIN/HEMATOCRIT [facility] Start: 05-07-2024 SERUM CREATININE SERUM CREATININE [facility] Start: 04-16-2024 HEMOGLOBIN/HEMATOCRIT HEMOGLOBIN/HEMATOCRIT [facility] Start: 04-16-2024 SERUM CREATININE SERUM CREATININE [facility] Start: 03-12-2024 HEMOGLOBIN/HEMATOCRIT HEMOGLOBIN/HEMATOCRIT [facility] Start: 03-12-2024 Hepatitis B surface antibody level LDL CHOLESTEROL [facility] Start: 03-12-2024 SERUM CREATININE SERUM CREATININE [facility] Start: 02-03-2024 3 comp foot exam completed DIABETIC FOOT EXAM [facility] Start: 02-03-2024 Diabetic foot examination Diabetic Foot Exam [facility] Start: 01-20-2024 ANNUAL PCP TEAM CHRONIC DISEASE VISIT ANNUAL PCP TEAM CHRONIC DISEASE VISIT [facility] Start: 01-20-2024 BP CONTROLLED (<130/80) BP CONTROLLED (<130/80) [facility] Start: 01-16-2024 HEMOGLOBIN/HEMATOCRIT HEMOGLOBIN/HEMATOCRIT [facility] Start: 01-16-2024 Hepatitis B surface antibody level LDL CHOLESTEROL [facility] Start: 12-18-2023 Hemoglobin A1c measurement HbA1C [facility] Start: 12-18-2023 Hemoglobin A1c/Hemoglobin.total in Blood HbA1C [facility] Start: 12-12-2023 HEMOGLOBIN/HEMATOCRIT HEMOGLOBIN/HEMATOCRIT [facility] Start: 12-12-2023 SERUM CREATININE SERUM CREATININE [facility] Start: 11-14-2023 HEMOGLOBIN/HEMATOCRIT HEMOGLOBIN/HEMATOCRIT [facility] Start: 11-14-2023 SERUM CREATININE SERUM CREATININE [facility] Start: 10-16-2023 HEMOGLOBIN/HEMATOCRIT HEMOGLOBIN/HEMATOCRIT [facility] Start: 10-16-2023 Hepatitis B surface antibody level LDL CHOLESTEROL [facility] Start: 10-16-2023 SERUM CREATININE SERUM CREATININE [facility] Start: 08-25-2023 Covid-19 Vaccine ( season) Covid-19 Vaccine () [facility] Start: 08-20-2023 Mammography [facility] Start: 08-20-2023 Screening for malignant neoplasm of breast Mammogram Screening [facility] Start: 08-14-2023 HEMOGLOBIN/HEMATOCRIT HEMOGLOBIN/HEMATOCRIT [facility] Start: 08-14-2023 SERUM CREATININE SERUM CREATININE [facility] Start: 08-06-2023 ANNUAL PCP TEAM CHRONIC DISEASE VISIT ANNUAL PCP TEAM CHRONIC DISEASE VISIT [facility] Start: 08-06-2023 BP CONTROLLED (<130/80) BP CONTROLLED (<130/80) [facility] Start: 08-03-2023 End: 11-02-2023 Cobalamin (Vitamin B12) [Mass/volume] in Serum or Plasma VITAMIN B12 BLOOD Lab Routine Gastroesophageal reflux disease without esophagitis Expected: 08/03/2023, Expires: 11/02/2023 [facility] Work Phone: Immunizations Immunization Date Immunization Notes Care Provider Neetu kay 08-19-2023 influenza (HD-IIV4) vaccine, age 65+ yr, high dose, quadrivalent, PF (FLUZONE HIGH-DOSE) Bari Avendaño PA-C Work Phone: [facility] 06-30-2023 COVID-19 original vaccine, booster dose, monovalent (MODERNA) Dorie Zuñiga PA-C Work Phone: [facility] 06-09-2023 respiratory syncytia l virus (RSV) vaccine, adjuvanted (AREXVY) Tameka Guzmán MD Work Phone: [facility] 08-27-2022 COVID-19 booster vaccine, age 12+ yr, bivalent (MODERNA) Dorie Zuñiga PA-C Work Phone: [facility] 08-06-2022 influenza, injectabl e, quadrivalent, contains preservative Dorie Zuñiga PA-C Work Phone: [facility] 08-06-2022 influenza virus vaccine, unspecified formulation Heber Sullivan RN [facility] 11-06-2021 COVID-19 vaccine, fu ll dose (MODERNA) Tameka Guzmán MD Work Phone: [facility] 08-21-2021 influenza, injectabl e, quadrivalent, contains preservative Tameka Guzmán MD Work Phone: [facility] 05-01-2021 COVID-19 vaccine, fu ll dose (MODERNA) Tameka Guzmán MD Work Phone: [facility] 12-25-2020 COVID-19 vaccine, fu ll dose (MODERNA) Tameka Guzmán MD Work Phone: [facility] 07-04-2020 influenza, injectabl e, quadrivalent, contains preservative Tameka Guzmán MD Work Phone: [facility] Work Phone: 06-13-2020 zoster vaccine recombinant Tameka Guzmán MD Work Phone: [facility] 04-11-2020 zoster vaccine recombinant Tameka Guzmán MD Work Phone: [facility] 03-21-2020 pneumococcal polysaccharide vaccine, 23 valent Tameka Guzmán MD Work Phone: [facility] Work Phone: 06-15-2019 influenza, injectabl e, quadrivalent, contains preservative Tameka Guzmán MD Work Phone: [facility] 08-25-2018 hepatitis B vaccine, adult dosage Tameka Guzmán MD Work Phone: [facility] Work Phone: 06-30-2018 influenza, injectabl e, quadrivalent, contains preservative Tameka Guzmán MD Work Phone: [facility] Work Phone: 02-24-2018 hepatitis B vaccine, adult dosage Tameka Guzmán MD Work Phone: [facility] Work Phone: 01-27-2018 hepatitis B vaccine, adult dosage Tameka Guzmán MD Work Phone: [facility] Work Phone: 06-18-2017 influenza, injectabl e, quadrivalent, contains preservative Tameka Guzmán MD Work Phone: [facility] Work Phone: 07-23-2016 pneumococcal conjuga te vaccine, 13 valent Tameka Guzmán MD Work Phone: [facility] Work Phone: 06-18-2016 influenza, injectabl e, quadrivalent, contains preservative Tameka Guzmán MD Work Phone: [facility] Work Phone: 06-27-2015 influenza, injectabl e, quadrivalent, contains preservative Tameka Guzmán MD Work Phone: [facility] Work Phone: 06-27-2015 influenza, seasonal, injectable Tameka Guzmán MD Work Phone: [facility] 08-02-2014 influenza, seasonal, injectable Tameka Guzmán MD Work Phone: [facility] 06-23-2013 influenza virus vaccine, unspecified formulation Tameka Guzmán MD Work Phone: [facility] 08-18-2012 pneumococcal polysaccharide vaccine, 23 valent Tameka Guzmán MD Work Phone: [facility] Work Phone: 07-04-2012 tetanus toxoid, redu rose diphtheria toxoid, and acellular pertussis vaccine, adsorbed Tameka Guzmán MD Work Phone: [facility] 06-12-2012 influenza virus vaccine, unspecified formulation Tameka Guzmán MD Work Phone: [facility] Work Phone: 07-13-2011 influenza virus vaccine, unspecified formulation Tameka Guzmán MD Work Phone: [facility] 06-06-2009 influenza virus vaccine, unspecified formulation Tameka Guzmán MD Work Phone: [facility] Work Phone: 08-05-2008 influenza virus vaccine, whole virus Tameka Guzmán MD Work Phone: [facility] 07-14-2007 influenza virus vaccine, whole virus Tameka Guzmán MD Work Phone: [facility] NEGATED: Highlighted row has not occurred!08-06-2022 influenza, injectable, quadrivalent, contains preservative Tameka Guzmán MD Work Phone: [facility] Work Phone: Payers Date Payer Category Payer Medicaid [facility] MEDICAID MYC ARE [facility] MEDICAID [id number] 2020-Present [phone] [address] [place] [address] Medicaid [id number] 2020 Medicaid [id number] 2020 Medicaid [id number] 2020 Medicare [id number] 2020 Unknown ANTHEM BLUE CROS S AND BLUE SHIELD ANTHEM MEDIBLUE HMO [id number] 2020-Present [phone] [address] [place] [address] O [id number] 2014 Unknown [employer] [place] EYEMED VISION [id number] 09/12/2014-Present [address] [place] [address] Indemnity [id number] 09-12-2014 Unknown [id number] Social History Date Type Detail Facility Start: 01-29-2012 End: 07-17-2022 Tobacco smoking status NHIS Never smoked tobacco [facility] Start: 11-19-2021 End: 08-19-2023 Alcohol intake Current non-drinker of alcohol (finding) [facility] Start: 09-07-2021 End: 08-02-2022 History SDOH Alcohol Frequency 1 [facility] Start: 09-07-2021 History SDOH Alcohol Std Drinks 98 [facility] Start: 09-07-2021 End: 01-17-2023 History SDOH Social Connections Phone 5 [facility] Start: 09-07-2021 End: 01-17-2023 History SDOH Social Connections Mormon 3 [facility] Start: 09-07-2021 End: 01-17-2023 History SDOH Financial 4 [facility] Start: 09-07-2021 End: 01-17-2023 History SDOH Transport [facility] Start: 1960 Sex Assigned At Not on file [facility] Start: 11-09-2021 End: 08-06-2022 Exposure to SARS-CoV-2 (event) Not sure [facility] Work Phone: Start: 03-09-2022 End: 03-19-2022 Exposure to SARS-CoV-2 (event) Unable to assess [facility] Work Phone: Start: 01-29-2012 End: 07-17-2022 Tobacco use and exposure Smokeless tobacco non-user [facility] Start: 01-17-2023 History SDOH Alcohol Std Drinks 0 [facility] Start: 01-17-2023 End: 01-19-2023 History of Social function [facility] Start: 01-17-2023 End: 01-19-2023 Social connection and isolation panel [facility] Do you belong to any clubs or organizations such as islam groups, unions, fraternal or athletic groups, or school groups? Yes [facility] Are you now , , , , never or living with a partner? [facility] How often to you hav e a drink containing alcohol? Never [facility] How many standard dr inks containing alcohol do you have on a typical day? Patient does not drink [facility] How hard is it for y ou to pay for the very basics like food, housing, medical care, and heating Not very hard [facility] Do you feel stress - tense, restless, nervous, or anxious, or unable to sleep at night because your mind is troubled all the time - these days [OSQ] Not at all [facility] (I/We) worried wheth er (my/our) food would run out before (I/we) got money to buy more. Never true [facility] In the past 12 month s, was there a time when you were not able to pay the mortgage or rent on time? No [facility] Medical Equipment Procedure Code Equipment Code Equipment Origin al Text Equipment Identifier Dates Stent Inlay Opti ma 4.7fr Taper [place] [employer] Phreecoat 14cm Ureteral - [id number] Start: 09-24-2019 Start: 02-27-2020 End: 05-23-2023 Goals Date Patient Goal Desired Activity /State Personal health goal Clinical Notes 02-20-2016 to 07-20-2023 Dorie Zuñiga PA-C - 07/20/2023 12:23 PM ESTTelephone Encounter - Tessa Epps MA - 07/18/2023 7:53 AM ESTTelephone Encounter - Suha Stratton RN - 06/21/2023 1:10 PM EDT Note Date & Type Note Facility 07-20-2023 Note [facility] 07-20-2023 History of Present illness Narrative VIRTUAL VISIT FOLLOW UP I have communicated my name and active licensure. The patient's identity and physical location were verified at the time of this visit. Either the patient or their legal in store representative has been informed of the risks and benefits of -- and alternatives to -- treatment through a remote evaluation and consents to proceed with the evaluation remotely. I had a virtual visit with Ms. Duran today for follow up of GERD, h/o colon polyps. UPDATED HISTORY: Protonix 40 mg daily working well for GERD. On fiber caps, Gas-X PRN for bowels with relief. Denies abd pain, weight loss, N/V. EGD/Colon 11/2021 FINAL DIAGNOSIS A. Stomach, antrum, biopsy: - Oxyntic mucosa with no significant diagnostic alterations. - No morphologic evidence of Helicobacter pylori organisms. B. Colon, transverse, polypectomy: - Minute tubular adenoma. - Fragments of colonic mucosa with no significant diagnostic alterations PAST MEDICAL HISTORY Diagnosis Date Amenorrhea, primary due to hormone deficiency Arthritis Blind left eye ambylopia Carpal tunnel syndrome Chronic renal insufficiency congenital atrophy left kidney CKD (chronic kidney disease) Diabetes mellitus, type 2 (HCC) 2011 Environmental allergies GERD (gastroesophageal reflux disease) Gout Growth hormone deficiency (HCC) Hearing loss bilateral, right TM scars Hiatal hernia Hyperlipidemia Hypertension Multiple thyroid nodules Nonspecific (abnormal) findings on radiological and other examination of genitourinary organs congenital atrophy left kidney DANIEL (obstructive sleep apnea) DME [facility] for Aut[employer] Pituitary dwarfism (HCC) Type II or unspecified type diabetes mellitus without mention of complication, not stated as uncontrolled Unspecified hypothyroidism Vertigo, peripheral PAST SURGICAL HISTORY Procedure Laterality Date ABDOMINAL SURGERY HX APPENDECTOMY APPENDECTOMY HX CATARACT SURGERY, COMPLEX 01/11/2018 CHOLECYSTOSTOMY PRQ W/IMAGING & CATHETER PLMT 2004 cholecystectomy COLONOSCOPY 11/19/2021 repeat in 5 years COLONOSCOPY FLX DX W/COLLJ SPEC WHEN PFRMD 11/03/2012 Colonoscopy COLONOSCOPY FLX DX W/COLLJ SPEC WHEN PFRMD 02/20/2016 Colonoscopy COLONOSCOPY FLX DX W/COLLJ SPEC WHEN PFRMD 02/23/2019 Colonoscopy EGD W/O BRSH SPEC VARICIES INJ 11/19/2021 ESOPHAGOGASTRODUODENOSCOPY TRANSORAL DIAGNOSTIC 11/03/2012 EGD EYE SURGERY HX Bilateral cataract KIDNEY TRANSPLANT HX MYRINGOTOMY ASPIR&/EUSTACHIAN TUBE NFLTJ ANES Myringotomy/tubes NEUROPLASTY &/TRANSPOS MEDIAN NRV CARPAL TUNNE 08/25/2012 Carpal tunnel decomp NEUROPLASTY &/TRANSPOS MEDIAN NRV CARPAL TUNNE 09/14/2013 CTR left hand RENAL ALLOTRANSPLANTATION W/ GRAFT W/O RECIPIENT NEPHRECTOMY Right 09/24/2019 Kidney transplant TONSILLECTOMY HX FAMILY HISTORY Problem Relation Age of Onset Cancer Mother lung Heart Mother CHF, CAD Cervical Cancer Mother Hypertension Father other (tuberculosis) Father other (Brain aneurysm) Father Colon Cancer Brother Heart Attack Brother other (Brain aneurysm) Brother Heart Maternal Grandmother CHF Colon Cancer Maternal Grandfather Heart Maternal Aunt [place], CHF,Pacemaker Ischemic Heart Disease Paternal Uncle Heart Other Stents placed due to [place] Colon Cancer Maternal cousin Social History Tobacco Use Smoking status: Never Smokeless tobacco: Never Vaping Use Vaping Use: Never used Substance Use Topics Alcohol use: No Drug use: No Current Outpatient Medications Medication Sig Dispense Refill pantoprazole DR (PROTONIX) 40 mg tablet take one tablet by mouth every day 90 tablet 0 predniSONE (DELTASONE) 5 mg tablet Take 1 tablet by mouth once daily. 90 tablet 3 blood sugar diagnostic (ONETOUCH VERIO TEST STRIPS) test strip testing 6 times daily times daily DX E11.9 Insulin NO 200 Strip 5 metFORMIN (GLUCOPHAGE) 500 mg tablet Take 1 tablet by mouth daily with breakfast. 30 tablet 5 amLODIPine (NORVASC) 5 mg tablet TAKE ONE TABLET BY MOUTH EVERY DAY 90 tablet 1 pravastatin (PRAVACHOL) 40 mg tablet TAKE ONE TABLET BY MOUTH AT BEDTIME 90 tablet 1 tacrolimus IR (PROGRAF) 1 mg capsule TAKE ONE CAPSULE BY MOUTH EVERY MORNING AND TAKE ONE TABLET BY MOUTH EVERY EVENING (12 HOURS APART) 60 capsule 11 levothyroxine (LEVOXYL) 50 mcg tablet Take 1 tablet by mouth once daily. Take on empty stomach. For Thyroid 30 tablet 11 bran/gum/fib/rex/psyl/kelp/pec (FIBER 6 ORAL) Take 500 mg by mouth. everolimus, immunosuppressive, (ZORTRESS) 0.5 mg tab tablet TAKE ONE TABLET BY MOUTH EVERY MORNING AND TAKE 2 TABLETS EVERY EVENING. 12 HOURS APART. 270 tablet 3 glimepiride (AMARYL) 1 mg tablet Please take 0.5 to 1 pills at lunch daily depending on the pre lunch sugars. 30 tablet 11 Blood-Glucose Meter monitoring kit Glucose Meter Kit (choose brand covered by insurance)- Dx: Type 2 DM - Controlled E11.9 1 Each 0 loratadine (CLARITIN) 10 mg tablet Take 1 tablet by mouth once daily. Lancets lancets Test blood sugar(s) 6 times daily. Dx: Type 2 DM - Controlled E11.9 Insulin: No 200 Each 11 CPAP Initiate Auto PAP @ 5-20 cm of water with humidification. Mask (per patient preference) optional chin strap (if indicated) , filters, tubing, humidifier and lifetime supplies. (Patient not taking: Reported on 02/02/2023) 1 Device 0 ASPIRIN 81 MG TAB Take one(1) tablet daily. 30 11 No current facility-administered medications for this visit. ALLERGIES Allergen Reactions Dust Mites Unknown Penicillins Mental Status Change Tylenol-Codeine #3 * Hives Augmentin [Amoxicil* Mental Status Change Sulfa (Sulfonamide * Rash Cephalosporins Other: See Comments sneezing Doxycycline Hyclate Diarrhea, GI Upset, Vomiting Seasonal Allergies Grass Pollen Itching REVIEW OF SYSTEMS: PAIN ASSESSMENT: Negative for pain, history of chronic pain, or current treatment for a chronic pain condition. 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, abnormal vaginal discharge PHYSICAL FINDINGS OF NOTE: General - Normal, healthy, cooperative, in no acute distress Able to interact verbally by video conference Psych - ORIENTATION: normal to time place, person and situation Mood/Affect: AFFECT AND MOOD: Normal Head/Neuro - Normal size and shape Facial appearance normal Pulmonary - respiratory effort normal Cardiovascular - patient describes extremities normal, warm, no cyanosis,no clubbing, and no edema Abdominal - Not performed Skin - abnormal lesions not visualized Motor - patient seen sitting with Normal appearing strength and coordination Anorectal exam - Not Performed Assessment/Plan (K21.9) Gastroesophageal reflux disease without esophagitis (primary encounter diagnosis) (Z86.010) Personal history of colonic polyps 1. Gastroesophageal reflux disease without esophagitis - pantoprazole DR (PROTONIX) 40 mg tablet; Take 1 tablet by mouth once daily. On empty stomach at least 30 minutes before eating. Dispense: 90 tablet; Refill: 3 - VITAMIN B12 BLOOD; Future - Doing well with Protonix 40 mg daily, rare episodes of GERD flare ups - Check B12 levels 2. Personal history of colonic polyps - Due for repeat colon 2026 Follow up in office 12 months/PRN. I spent a total of <10 minutes on the date of the service which included preparing to see the patient, [id number] patient care, completing clinical documentation, obtaining and/or reviewing separately obtained history, performing a medically appropriate examination, counseling and educating the patient/family/caregiver, ordering medications, tests, or procedures, communicating with other HCPs (not separately reported), independently interpreting results (not separately reported), communicating results to the patient/family/caregiver, and care coordination (not separately reported). Dorie Zuñiga PA-C July 20, 2023 12:32 PM documented in this encounter [facility] 07-18-2023 Miscellaneous Notes Patient phones requesting refills as follows: Requested Prescriptions Pending Prescriptions Disp Refills pantoprazole DR (PROTONIX) 40 mg tablet [Pharmacy Med Name: PANTOPRAZOLE SODIUM 40MG TBEC] 90 tablet 0 Sig: take one tablet by mouth every day Please review and advise. Tessa Epps MA documented in this encounter [facility] 06-21-2023 Miscellaneous Notes Called and left a detailed voicemail notifying patient of providers message. Clinic phone number was left in case patient has any questions. Order placed. Do not perform prior to 08/20/23 Kaylen Galeana APRN.CNP Please place order for mammo Please assist patient for after Aug 20 mammogram. Mammogram is not due for 2 months. If she gets it done prior to 08/20/22 her insurance will not cover it. Does she want the order placed so she can schedule for in August? Thank you Kaylen Galeana APRN.CNP Pt. would like order for Mammogram. documented in this encounter [facility] documented in this encounter [facility]10-06-2023 Miscellaneous Notes* Telephone Encounter - Melly Cantu RN - 06/17/2023 11:16 AM EDT Patient calls and states that it has been awhile since hgb a1c has been checked. Patient states that she has to get labs done tomorrow and is asking if provider can put this lab order in as well? Please review and advise, Melly Cantu RN [facility] History of Present illness Narrative* Irais Murphy APRN.VETERINARY TECHNICIAN ASSISTANT - 06/06/2023 6:33 PM EDT This note was created using rSmartriter. Subjective Eileen Duran is a 63 year old female. 63 year old female with PMH DM, HTN, GERD, kidney transplant presents for multiple complaints. 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 She had placed her right index finger into the back of the shoe And must have twisted it or something +pain Denies break in skin integrity Left great toe Acute onset one month ago. Endorses a heavy bottle of shampoo and conditioner dropped on her toe. Denies seeking medical treatment at the time Figured since I am here, can go ahead and have it xrayed The history is provided by the patient. No speech and language specialist was used. Musculoskeletal Problem This is a new problem. 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 The problem occurs constantly. The problem has been unchanged. Pertinent negatives include no abdominal pain, anorexia, arthralgias, change in bowel habit, chest pain, chills, congestion, coughing, diaphoresis, fatigue, fever, headaches, joint swelling, myalgias, nausea, neck pain, numbness, rash, sore throat, swollen glands, urinary symptoms, vertigo, visual change, vomiting or weakness. Exacerbated by: bending, touching, and moving. She has tried nothing for the symptoms. The treatment provided no relief. PAST MEDICAL HISTORY Diagnosis Date Amenorrhea, primary due to hormone deficiency Arthritis Blind left eye ambylopia Carpal tunnel syndrome Chronic renal insufficiency congenital atrophy left kidney CKD (chronic kidney disease) Diabetes mellitus, type 2 (HCC) 2011 Environmental allergies GERD (gastroesophageal reflux disease) Gout Growth hormone deficiency (HCC) Hearing loss bilateral, right TM scars Hiatal hernia Hyperlipidemia Hypertension Multiple thyroid nodules Nonspecific (abnormal) findings on radiological and other examination of genitourinary organs congenital atrophy left kidney DANIEL (obstructive sleep apnea) DME [facility] for [employer] Pituitary dwarfism (HCC) Type II or unspecified type diabetes mellitus without mention of complication, not stated as uncontrolled Unspecified hypothyroidism Vertigo, peripheral PAST SURGICAL HISTORY Procedure Laterality Date ABDOMINAL SURGERY HX APPENDECTOMY APPENDECTOMY HX CATARACT SURGERY, COMPLEX 01/11/2018 CHOLECYSTOSTOMY PRQ W/IMAGING & CATHETER PLMT 2004 cholecystectomy COLONOSCOPY 11/19/2021 repeat in 5 years COLONOSCOPY FLX DX W/COLLJ SPEC WHEN PFRMD 11/03/2012 Colonoscopy COLONOSCOPY FLX DX W/COLLJ SPEC WHEN PFRMD 02/20/2016 Colonoscopy COLONOSCOPY FLX DX W/COLLJ SPEC WHEN PFRMD 02/23/2019 Colonoscopy EGD W/O BRSH SPEC VARICIES INJ 11/19/2021 ESOPHAGOGASTRODUODENOSCOPY TRANSORAL DIAGNOSTIC 11/03/2012 EGD EYE SURGERY HX Bilateral cataract KIDNEY TRANSPLANT HX MYRINGOTOMY ASPIR&/EUSTACHIAN TUBE NFLTJ ANES Myringotomy/tubes NEUROPLASTY &/TRANSPOS MEDIAN NRV CARPAL TUNNE 08/25/2012 Carpal tunnel decomp NEUROPLASTY &/TRANSPOS MEDIAN NRV CARPAL TUNNE 09/14/2013 CTR left hand RENAL ALLOTRANSPLANTATION W/ GRAFT W/O RECIPIENT NEPHRECTOMY Right 09/24/2019 Kidney transplant TONSILLECTOMY HX ALLERGIES Dust Mites, Penicillins, Tylenol-Codeine #3 [Acetaminophen-Codeine], Augmentin [Amoxicillin-Pot Clavulanate], Sulfa (Sulfonamide Antibiotics), Cephalosporins, Doxycycline Hyclate, Seasonal Allergies, and Grass Pollen MEDICATIONS predniSONE (DELTASONE) 5 mg tablet Take 1 tablet by mouth once daily. blood sugar diagnostic (19payUCH VERIO TEST STRIPS) test strip testing 6 times daily times daily DXE11.9 Insulin NO metFORMIN (GLUCOPHAGE) 500 mg tablet Take 1 tablet by mouth daily with breakfast. amLODIPine (NORVASC) 5 mg tablet TAKE ONE TABLET BY MOUTH EVERY DAY pravastatin (PRAVACHOL) 40 mg tablet TAKE ONE TABLET BY MOUTH AT BEDTIME tacrolimus IR (PROGRAF) 1 mg capsule TAKE ONE CAPSULE BY MOUTH EVERY MORNING AND TAKE ONE TABLET BYMOUTH EVERY EVENING (12 HOURS APART) levothyroxine (LEVOXYL) 50 mcg tablet Take 1 tablet by mouth once daily. Take on empty stomach. ForThyroid bran/gum/fib/rex/psyl/kelp/pec (FIBER 6 ORAL) Take [address] (PROTONIX) 40 mg tablet TAKE ONE TABLET BY MOUTH EVERY DAY everolimus, immunosuppressive, (ZORTRESS) 0.5 mg tab tablet TAKE ONE TABLET BY MOUTH EVERY MORNING AND TAKE 2 TABLETS EVERY EVENING. 12 HOURS APART. glimepiride (AMARYL) 1 mg tablet Please take 0.5 to 1 pills at lunch daily depending on the pre lunch sugars. Blood-Glucose Meter monitoring kit Glucose Meter Kit (choose brand covered by insurance)- Dx: Type 2 DM - Controlled E11.9 loratadine (CLARITIN) 10 mg tablet Take 1 tablet by mouth once daily. Lancets lancets Test blood sugar(s) 6 times daily. Dx: Type 2 DM - Controlled E11.9 Insulin: No ASPIRIN 81 MG TAB Take one(1) tablet daily. CPAP Initiate Auto PAP @ 5-20 cm of water with humidification. Mask (per patient preference) optional chin strap (if indicated) , filters, tubing, humidifier and lifetime supplies. (Patient not taking: Reported on 02/02/2023) FAMILY HISTORY Problem Relation Age of Onset Cancer Mother lung Heart Mother CHF, CAD Cervical Cancer Mother Hypertension Father other (tuberculosis) Father other (Brain aneurysm) Father Colon Cancer Brother Heart Attack Brother other (Brain aneurysm) Brother Heart Maternal Grandmother CHF Colon Cancer Maternal Grandfather Heart Maternal Aunt [place], CHF,Pacemaker Ischemic Heart Disease Paternal Uncle Heart Other Stents placed due to [place] Colon Cancer Maternal cousin Social History Tobacco Use Smoking status: Never Smokeless tobacco: Never Vaping Use Vaping Use: Never used Substance Use Topics Alcohol use: No Drug use: No Review of Systems Constitutional: Negative for chills, diaphoresis, fatigue and fever. HENT: Negative for congestion and sore throat. Eyes: Negative for pain, discharge, redness and itching. Respiratory: Negative for apnea, cough, choking and chest tightness. Cardiovascular: Negative for chest pain. Gastrointestinal: Negative for abdominal pain, anorexia, change in bowel habit, nausea and vomiting. Musculoskeletal: Negative for arthralgias, joint swelling, myalgias and neck pain. Right index and left great toe Skin: Negative for rash. Allergic/Immunologic: Negative for environmental allergies, food allergies and immunocompromised state. Neurological: Negative for vertigo, weakness, numbness and headaches. Hematological: Negative for adenopathy. Does not bruise/bleed easily. Psychiatric/Behavioral: Negative for agitation and behavioral problems. Objective BP 110/68 Pulse 76 Temp 37.4 C (99.4 F) Resp 16 Wt 55.8 kg (123 lb) SpO2 98% BMI 34.59 kg/m Physical Exam Vitals and nursing note reviewed. Constitutional: General: She is not in acute distress. Appearance: She is not ill-appearing, toxic-appearing or diaphoretic. HENT: Head: Normocephalic and atraumatic. Right Ear: Ear canal and external ear normal. Left Ear: Ear canal and external ear normal. Nose: Nose normal. No congestion or rhinorrhea. Mouth/Throat: Mouth: Mucous membranes are moist. Pharynx: No oropharyngeal exudate or posterior oropharyngeal erythema. Eyes: General: Right eye: No discharge. Left eye: No discharge. Extraocular Movements: Extraocular movements intact. Conjunctiva/sclera: Conjunctivae normal. Pupils: Pupils are equal, round, and reactive to light. Cardiovascular: Rate and Rhythm: Normal rate and regular rhythm. Pulses: Normal pulses. Heart sounds: Normal heart sounds. No murmur heard. No friction rub. Pulmonary: Effort: Pulmonary effort is normal. No respiratory distress. Breath sounds: Normal breath sounds. No stridor. No wheezing, rhonchi or rales. Chest: Chest wall: No tenderness. Abdominal: General: Abdomen is flat. There is no distension. Palpations: Abdomen is soft. There is no mass. Tenderness: There is no abdominal tenderness. There is no right CVA tenderness, left CVA tenderness, guarding or rebound. Hernia: No hernia is present. Musculoskeletal: General: Tenderness present. No swelling, deformity or signs of injury. Normal range of motion. Cervical back: Normal range of motion and neck supple. No rigidity. Right lower leg: No edema. Left lower leg: No edema. Comments: Right index finger with generalized TTP throughout. Full active and passive ROM +flexion + extension Brisk cap refill Skin intact. Left great toe with generalized TTP Superficial abrasion. +flexion +extension Brisk cap refill +neuro +sensation Lymphadenopathy: Cervical: No cervical adenopathy. Skin: General: Skin is warm and dry. Capillary Refill: Capillary refill takes less than 2 seconds. Coloration: Skin is not jaundiced or pale. Findings: No bruising, erythema, lesion or rash. Neurological: General: No focal deficit present. Mental Status: She is alert and oriented to person, place, and time. Cranial Nerves: No cranial nerve deficit. Sensory: No sensory deficit. Motor: No weakness. Coordination: Coordination normal. Gait: Gait normal. Psychiatric: Mood and Affect: Mood normal. Behavior: Behavior normal. Thought Content: Thought content normal. Judgment: Judgment normal. Assessment and Plan ASSESSMENT/PLAN: 1. Finger pain, right - ICD9: 729.5, ICD10: M79.644 (primary diagnosis) Occurred prior to arrival No red flags - XR DIGIT GENERAL 3V FRONTAL/LAT/OBL RIGHT-negative for fracture RICE therapy OTC analgesics F/U with PCP 2. Great toe pain, left - ICD9: 729.5, ICD10: M79.675 X one month Endorses that she dropped a bottle of shampoo on the foot. Denies seeking medical treatment at that time - XR TOE AP/LAT/OBL LEFT-negative for acute process OTC analgesics RICE therapy Irais Murphy APRN.VETERINARY TECHNICIAN ASSISTANT documented in this encounterWayne Hospital09-20-2023 Miscellaneous Notes* Telephone Encounter - Heber Sullivan RN - 06/01/2023 2:43 PM EDT Discussed with patient receiving RSV vaccine. Informed per Transplant Infectious Disease, okay to receive either Abrysvo ([employer]) or Arexvy ([employer]) RSV vaccines. Informed RSV vaccine currently FDA approved for individuals greater than/equal to 60 years old, though no current data on efficacy or adverse events for immunocompromised patients. Common side effects include pain at injection site, fatigue, WHATLEY, fever, hypersensitivity and neuroinflammatory events (ie Guillain Kerens, ADEM, Velazco Tripp Syndrome). Advised patient if/when receive vaccine, to notify transplant office in order to update immunization record. Patient stated understanding. All questions answered. Heber Sullivan RN Referenced: Abrysvo (respiratory syncytial virus vaccine) [prescribing information]. [place], [place]: [employer] [facility]; April 2023.; Arexvy (respiratory syncytial virus vaccine, adjuvanted) [prescribing information]. [place], [place]: [employer]; January 2023. documented in this encounterWayne Hospital09-11-2023 Miscellaneous Notes* Telephone Encounter - Zandra Goins LPN - 05/23/2023 4:54 PM EDT Patient has been identified by name and date of : Yes Patient phones for refill(s): Requested Prescriptions Pending Prescriptions Disp Refills blood sugar diagnostic (ONETOUCH VERIO TEST STRIPS) test strip 200 Strip 5 Sig: testing 6 times daily times daily DX E11.9 Insulin NO metFORMIN (GLUCOPHAGE) 500 mg tablet 30 tablet 5 Sig: Take 1 tablet by mouth daily with breakfast. Date of last office visit in primary care: 01/19/2023 6 month follow-up: 07/27/2023 Last 2 Encounter Wt Readings: Date: Wt: 01/19/2023 55.3 kg (122 lb) 10/21/2022 53.1 kg (117 lb) Previous labs/tests for medication: Diabetes: Hemoglobin A1C (%) Date Value 01/15/2023 6.3 03/13/2022 6.3 09/07/2021 6.0 02/14/2021 6.0 Please advise. Thank you. Zandra Goins LPN * Telephone Encounter - Denice Gao - 05/23/2023 3:41 PM EDT Patient has been identified by name and date of : Yes Requested Prescriptions Pending Prescriptions Disp Refills blood sugar diagnostic (ONETOUCH VERIO TEST STRIPS) test strip 200 Strip 5 Sig: testing 6 times daily times daily DX E11.9 Insulin NO metFORMIN (GLUCOPHAGE) 500 mg tablet 30 tablet 5 Sig: Take 1 tablet by mouth daily with breakfast. RX INSTRUCTIONS: Patient aware RX will be sent to pharmacy. No need to notify patient. Denice Thompson documented in this encounterWayne Hospital09-11-2023 Miscellaneous Notes* Telephone Encounter - Heber Sullivan RN - 05/23/2023 3:32 PM EDT Patient phones requesting refills as follows: Requested Prescriptions Pending Prescriptions Disp Refills predniSONE (DELTASONE) 5 mg tablet 90 tablet 3 Sig: Take 1 tablet by mouth once daily. Please review and advise. Heber Sullivan RN documented in this encounterWayne Hospital09-06-2023 Note[facility] History of Present illness Narrative* Renita Medina - 05/18/2023 9:31 PM EDT Last saw pcp: 01/19/23 Subjective: Patient presents to clinic c/o painful toenails. They state that the nails are especially painful with shoe gear and pressure. Patient states that nails 1-5 b/l are painful. Patient admits to being diabetic. Does report recently having dropped a bottle of conditioner on her left great toe. Has bruising. No pain. No other pedal complaints at this time. Patient states no change in medications or medical history since last visit. Objective: Patient presents to clinic ambulating in diabetic shoe Vasc: DP and PT pulses are palpable bilateral. CFT is less than 5 seconds bilateral. Skin temperature is warm to cool proximal to distal bilateral. There is no edema or varicosities noted. Neuro: Protective sensation is intact to the foot and toes when tested with the 5.07 SWM bilateral.Vibratory sensation is decreased at the hallux IPJ bilateral. The hallux is downgoing bilateral. Derm: Nails 1-5 b/l are painful, discolored-yellow, thick, crumbly, dystrophic and with subungal debris. Skin is of normal turgor, texture and hair growth is present bilateral. There are callus to b/l 2nd metatarsal. no ulcerations, scars, verruca or other lesions noted. Ortho: Muscle strength is 5/5 for all pedal groups tested. Ankle joint DF is full with the knee extended with no pain or crepitus noted. 1st MPJ ROM is full bilateral. Bruising is noted to left 2nd toe Assessment: (E11.42) Diabetic polyneuropathy associated with type 2 diabetes mellitus (HCC) (primary encounter diagnosis) (B35.1) Onychomycosis (M79.675) Pain in toe of left foot (M79.674) Pain in toe of right foot (L85.9) Hyperkeratosis (S90.112A) Contusion of left great toe without damage to nail, initial encounter Plan: Patient was seen and evaluated. Nails 1-5 bilateral were debrided in length and thickness. Callus reduced to b/l 2nd metatarsal Continue with diabetic shoes Discussed bruising of left hallux. Offered xrays. Patient declined. Patient was instructed on the continued importance of diabetic foot care along with proper diet and keeping their blood sugar undercontrol to prevent complications. Patient is to RTC in 3-4 months. Renita Medina DPM * Annette Westfall LPN - 05/18/2023 3:41 PM EDT AMB ROOMING INTAKE FLOWSHEET DATA Patient presents with: Left Foot - Diabetic Foot Care, Established Patient Right Foot - Diabetic Foot Care, Established Patient, Pain Annette Westfall LPN documented in this encounterWayne Hospital09-06-2023 NoteSouthern [facility]09-06-2023 Instructions* Patient Instructions* Renita Medina - 05/18/2023 4:05 PM EDT Diabetes Foot Care Instructions When you have diabetes, proper foot care is very important. Poor foot care may lead to amputation of a foot or leg. As a person with diabetes, you are more vulnerable to foot problems, because diabetes can damage your nerves and reduce blood flow to your feet. Here are some diabetes foot care tips to follow: Wash and Dry Your Feet Daily Use mild soaps Use warm water Pat your skin dry; do not rub. Thoroughly dry your feet. After washing, use lotion on your feet to prevent cracking. Do not put lotion between your toes. Examine Your Feet Each Day Check the tops and bottoms of your feet. Have someone else look at your feet if you cannot see them. Check for dry, cracked skin. Look for blisters, cuts, scratches, or other sores. Check for redness, increased warmth, or tenderness when touching any area of your feet. Check for ingrown toenails, corns, and calluses. If you get a blister or sore from your shoes, do not pop it. Apply a bandage and wear a differentpair of shoes. Take Care of Your Toenails Cut toenails after bathing, when they are soft. Cut toenails straight across and smooth with a nail file. Avoid cutting into the corners of toes. Do not cut cuticles. If you have neuropathy (or decreased sensation in your feet) a motorcycle assembler should always cut your toenails. Be Careful When Exercising Walk and exercise in comfortable shoes. Do not exercise when you have open sores on your feet. Protect Your Feet With Shoes and Socks Never go barefoot. Always protect your feet by wearing shoes or hard-soled slippers or footwear. Avoid shoes with high heels and pointed toes. Avoid shoes that expose your toes or heels (such as open-toed shoes or sandals). These types of shoes increase your risk for injury and potential infections. Try on new footwear with the type of socks you usually wear. Do not wear new shoes for more than an hour at a time. Change your socks daily. Look and feel inside your shoes before putting them on to make sure there are no foreign objects orrough areas. Avoid tight socks. Wear natural-fiber socks (cotton, wool, or a cotton-wool blend). Wear special shoes if your health care provider recommends them. Wear shoes/boots that will protect your feet from various weather conditions (cold, moisture, etc.). Make sure your shoes fit properly. If you have neuropathy (nerve damage), you may not notice that your shoes are too tight. Perform the footwear test described below. Footwear Test Use this simple test to see if your shoes fit correctly: Stand on a piece of paper. (Make sure you are standing and not sitting, because your foot changes shape when you stand.) Trace the outline of your foot. Trace the outline of your shoe. Compare the tracings: Is the shoe too narrow? Is your foot crammed into the shoe? The shoe should be at least 1/2 inch longer than your longest toe and as wide as your foot. Proper Shoe Choices The following types of shoes are best for people with diabetes Closed toes and heels Leather uppers without a seam inside At least 1/2 inch extra space at the end of your longest toe Inside of shoe should be soft with no rough areas Outer sole should be made of stiff material Shoes should be at least as wide as your feet Tips for Foot Care in Diabetes Don't wait to treat a minor foot problem if you have diabetes. Follow your health care provider's guidelines and first aid guidelines. Report foot injuries and infections to your health care provider immediately. Check water temperature with your elbow, not your foot. Do not use a heating pad on your feet. Do not cross your legs. Do not self-treat your corns, calluses, or other foot problems. Go to your health care provider or motorcycle assembler to treat these conditions. documented in this encounterWayne Hospital08-09-2023 NoteSouthern [facility]08-09-2023 History of Present illness Narrative* Bari Avendaño PA- C - 04/20/2023 3:19 PM EDT [facility] Follow up Portions of this note were copied from the last encounter. Changes were made to appropriately reflect updated history and interval events, physical exam, data review, and medical decision making. This is a 63 year old female who presents for follow up of a ROBE kidney transplant. PRA 0%. 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 HPI: Transplant date: 09/24/2019 Original Disease: Congenital Atrophic Kidney CMV status: -/+ EBV status: +/+ Induction therapy: Simulect Ureteral Stent: Yes; Removal Date: 10/26/2019 Major events since transplantation: Prior to transplant - UC positive (09/17/19) for Strep Agalactiae(group B strep). Treated with Keflex 500mg BID x7d 09/30/2019: ED visti d/t RLE edema. Duplex negative. Discharged home with f/u in outpatient transplant office. BK + since 11/19/2019. On FK and Everolimus 01/24/2020: 14,218 03/20/22: COVID-19. Treated with molnupiravir Protocol Bx results: 3-6 mos: 03/04/2020: Moderate interstitial inflammation and tubulitis consistent with [place] Grade 1Aacute cellular rejection. Tubular atrophy and interstitial fibrosis, moderate. Treated with 500mg IVMP pulse with PO taper. F/u biopsy 05/27/20: Negative for acute rejection, Grade 0. Minimal chronic interstitial inflammation and minimal interstitial fibrosis. 1 yr: Will need to schedule Local Manager Of Corporate Communications: Ani Yun VETERINARY TECHNICIAN ASSISTANT Lab Frequency: Monthly Home BP: 120-140/60-70 New Complaints: Feeling well, no complaints Current Outpatient Medications Medication Sig amLODIPine (NORVASC) 5 mg tablet TAKE ONE TABLET BY MOUTH EVERY DAY pravastatin (PRAVACHOL) 40 mg tablet TAKE ONE TABLET BY MOUTH AT BEDTIME predniSONE (DELTASONE) 5 mg tablet Take 1 tablet by mouth once daily. tacrolimus IR (PROGRAF) 1 mg capsule TAKE ONE CAPSULE BY MOUTH EVERY MORNING AND TAKE ONE TABLET BYMOUTH EVERY EVENING (12 HOURS APART) levothyroxine (LEVOXYL) 50 mcg tablet Take 1 tablet by mouth once daily. Take on empty stomach. ForThyroid bran/gum/fib/rex/psyl/kelp/pec (FIBER 6 ORAL) Take 500 mg [address] mouth. pant[address] (PROTONIX) 40 mg tablet TAKE ONE TABLET BY MOUTH EVERY DAY blood sugar diagnostic (19payUCH VERIO TEST STRIPS) test strip testing 6 times daily times daily DXE11.9 Insulin NO metFORMIN (GLUCOPHAGE) 500 mg tablet TAKE ONE TABLET BY MOUTH EVERY DAY WITH BREAKFAST everolimus, immunosuppressive, (ZORTRESS) 0.5 mg tab tablet TAKE ONE TABLET BY MOUTH EVERY MORNING AND TAKE 2 TABLETS EVERY EVENING. 12 HOURS APART. glimepiride (AMARYL) 1 mg tablet Please take 0.5 to 1 pills at lunch daily depending on the pre lunch sugars. Blood-Glucose Meter monitoring kit Glucose Meter Kit (choose brand covered by insurance)- Dx: Type 2 DM - Controlled E11.9 loratadine (CLARITIN) 10 mg tablet Take 1 tablet by mouth once daily. Lancets lancets Test blood sugar(s) 6 times daily. Dx: Type 2 DM - Controlled E11.9 Insulin: No CPAP Initiate Auto PAP @ 5-20 cm of water with humidification. Mask (per patient preference) optional chin strap (if indicated) , filters, tubing, humidifier and lifetime supplies. (Patient not taking: Reported on 02/02/2023) ASPIRIN 81 MG TAB Take one(1) tablet daily. No current facility-administered medications for this visit. Current medications have been updated and reviewed with patient. ROS: No Fevers, Chills, No Nausea, vomiting, diarrhea No SOB, chest pain, pressure No edema, skin rash No dysuria, or frequency Weight steady No change appetite All other system reviews negative. THIS WAS CONDUCTED A VIRUTAL VISIT Virtual Exam: No acute distress apparent Comfortable Respirations non-labored Speaking in full sentences Speech is non-pressured and appropriate Labs: Invalid input(s): SPRG , NITRATES Protein/Creat Ratio Date Value 10/21/2022 1.19 mg/mg 12/24/2021 1.2 03/25/2021 0.8 09/25/2020 1.0 04/25/2020 1.4 03/28/2020 1.2 02/01/2020 0.7 01/11/2020 0.8 Creatinine (mg/dL) Date Value 04/16/2023 1.27 03/12/2023 1.19 02/12/2023 1.32 01/19/2023 1.22 12/11/2022 1.16 10/16/2021 1.18 09/19/2021 1.03 08/15/2021 0.96 07/18/2021 1.03 06/13/2021 1.06 BUN (mg/dL) Date Value 04/16/2023 20 03/12/2023 17 02/12/2023 17 10/16/2021 23 09/19/2021 19 08/15/2021 22 No results found for: AMYLASE , LIPASE Tacrolimus/FK506 (ng/mL) Date Value 04/16/2023 8.1 03/12/2023 5.2 02/12/2023 6.0 01/15/2023 7.2 10/16/2021 6.0 09/19/2021 6.0 08/15/2021 5.1 07/18/2021 4.4 Everolimus (ng/mL) Date Value 04/16/2023 5.3 03/12/2023 4.5 02/12/2023 4.0 10/16/2021 4.2 09/19/2021 4.3 08/15/2021 4.2 No results found for: RAPA No results found for: CSA WBC (k/uL) Date Value 04/16/2023 7.96 03/12/2023 8.62 02/12/2023 7.95 10/16/2021 9.77 09/19/2021 8.13 08/15/2021 8.09 Hemoglobin (g/dL) Date Value 04/16/2023 13.3 03/12/2023 13.3 02/12/2023 13.4 10/16/2021 13.9 09/19/2021 14.2 08/15/2021 13.8 Hematocrit (%) Date Value 04/16/2023 43.0 03/12/2023 42.7 02/12/2023 44.3 10/16/2021 44.7 09/19/2021 47.4 08/15/2021 46.4 Platelet Count (k/uL) Date Value 04/16/2023 245 03/12/2023 262 02/12/2023 270 10/16/2021 261 09/19/2021 303 08/15/2021 254 Calcium (mg/dL) Date Value 10/16/2021 10.4 09/19/2021 10.1 08/15/2021 10.2 Calcium, Total (mg/dL) Date Value 04/16/2023 9.9 03/12/2023 10.3 02/12/2023 10.6 Phosphorus (mg/dL) Date Value 04/16/2023 3.3 03/12/2023 3.0 02/12/2023 2.9 10/16/2021 3.3 09/19/2021 2.6 08/15/2021 3.1 PTH, Intact (pg/mL) Date Value 03/12/2023 74 01/15/2023 83 10/16/2022 83 03/14/2021 122 10/18/2020 96 08/01/2020 71 BK Virus DNA Quant (IU/mL) Date Value 09/19/2021 BKV DNA not detected by PCR. 08/15/2021 BKV DNA not detected by PCR. 07/18/2021 <21.5 BK DNA (IU/mL) (IU/mL) Date Value 03/12/2023 311 12/11/2022 49.1 06/12/2022 62.5 CMV DNA (IU/mL) (IU/mL) Date Value 08/15/2021 CMV DNA not detected by PCR. 07/18/2021 CMV DNA not detected by PCR. 06/13/2021 CMV DNA not detected by PCR. No results found for: EBVDNA Assessment & Plan: 63 year old s/p Kidney Transplant: 09/24/2019 (Kidney) 1. Allograft function: - 3 years 6 month post LUKT 2/2 congenital atrophic kidney. Allograft function stable at baseline, sCr 1.27 - overall feeling well without issues 2. Immunosuppression Regimen: - Tac 1/(Level 8.1), Everolimus 0.5/1 (Level 5.3), Pred 5 - Continue current regimen (on this regimen for previous BK viremia) 3. Hematology: - No anemia or leukopenia 4. Blood pressure: - Controlled on amlodipine 10 5. Viral Screening: - BK negative 6. Lipids/CV risk: - Last lipid panel 03/12/23, cholesterol at goal. TG mildly elevated at 159 - Continue pravastatin and ASA 7. Bone health/ Long-term corticosteroid use: - Ca/phos WNL - Vit D/PTH stable 8. Other: Following with endo for DM Follow up in 1 year. Z48.22 Encounter for aftercare following kidney transplant (primary encounter diagnosis) Z94.0 Kidney replaced by transplant Z51.81 Therapeutic drug monitoring I10 Hypertension, unspecified type Z79.899, Z94.0 Immunosuppressive management encounter following kidney transplant This is a virtual visit using the compliant platform [employer]. It required patient-provider interaction for the medical decision making as documented above. I have spent approximately 25 minutes during this patient visit. I have communicated my name and active licensure. The patient's identity and physical location wereverified at the time of this visit. Either the patient or their legal in store representative has been informed of the risks and benefits of -- and alternatives to -- treatment through a remote evaluation andconsents to proceed with the evaluation remotely. Bari Avendaño PA-C documented in this encounterWayne Hospital08-08-2023 Miscellaneous Notes* Telephone Encounter - Kiesha Childs Ma - 04/19/2023 10:49 AM EDT Patient last visit with PCP 01/19/23 Follow up appointment scheduled 07/27/23 Kiesha Childs Ma documented in this encounterWayne Hospital07-06-2023 Miscellaneous Notes* Telephone Encounter - Zandra Goins LPN - 03/17/2023 1:39 PM EDT Patient has been identified by name and date of : Yes, Patient phones for refill(s): Requested Prescriptions Pending Prescriptions Disp Refills levothyroxine (LEVOXYL) 50 mcg tablet 30 tablet 11 Sig: Take 1 tablet by mouth once daily. Take on empty stomach. For Thyroid Date of last office visit in primary care: 01/19/2023 6 month follow-up: 07/27/2023 Last 2 Encounter Wt Readings: Date: Wt: 01/19/2023 55.3 kg (122 lb) 10/21/2022 53.1 kg (117 lb) Previous labs/tests for medication: Thyroid: TSH Date Value 01/15/2023 2.250 mIU/L 09/07/2021 1.870 uU/mL Please advise. Thank you. Zandra Goins LPN * Telephone Encounter - Vane Hesham - 03/17/2023 1:11 PM EDT Patient has been identified by name and date of : Yes Requested Prescriptions Pending Prescriptions Disp Refills levothyroxine (LEVOXYL) 50 mcg tablet 30 tablet 11 Sig: Take 1 tablet by mouth once daily. Take on empty stomach. For Thyroid RX INSTRUCTIONS: Patient aware RX will be sent to pharmacy. No need to notify patient. Vane Dahl documented in this encounterWayne [facility]-26-[facility]23 [facility] History of Present illness Narrative* Tameka Guzmán MD - 01/19/2023 4:19 PM EDT Reason for Visit Patient presents with: F/U 6 months Eileen Duran is a 62 year old female who presents here today for Above Complaints. Health Maintenance HEPATITIS A(1 of 2 - Risk 2-dose series) BP CONTROLLED (<130/80) DILATED RETINAL EXAM DTAP,TDAP,TD(2 - Td or Tdap) DEPRESSION ASSESSMENT DIABETIC FOOT EXAM HPI It has been a couple years since the patient had her renal transplant, she had gone through the rejection, was on steroids, started on insulin, the steroids are tapered only on 5 mgs of prednisone daily. She is not on insulin. Patient is taking 3 different rejection medications. Tacrolimus, everolimus and prednisone. Patient had her blood work done recently. Hba1c is 6.3, creat is usually 1.16. and she is only on 500 mgs of metformin for Diabetes Mellitus and amaryl at 1 mg. HTN: BP controlled today. Checks BP at home. Compliant with medications. Denies any chest pain, palpitations, SOB, swelling in the feet. Careful with diet to avoid salt, trying to eat more fruits andvegetables, exercises regularly Hypothyroidism. She is doing well on her current dose of Synthroid. Denies fatigue, cold intolerance and swelling in feet. TSH recently checked and normal. Not using the sleep machine as they could not get a mask that actually fit her. 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 We discussed that she should try to sleep more on the right side. Notes her allergies have been acting up recently. Patient is on pantaprazole medication for reflux. Patient notes she does not have the soreness or reflux symptoms in a while Not exercising but is very active in the house, cleaning and doing her house work Also goes up and down the stairs a lot. bed room and bath room are up. No problem-specific Assessment & Plan notes found for this encounter. PAST MEDICAL HISTORY Diagnosis Date Amenorrhea, primary due to hormone deficiency Arthritis Blind left eye ambylopia Carpal tunnel syndrome Chronic renal insufficiency congenital atrophy left kidney CKD (chronic kidney disease) Diabetes mellitus, type 2 (HCC) 2011 Environmental allergies GERD (gastroesophageal reflux disease) Gout Growth hormone deficiency (HCC) Hearing loss bilateral, right TM scars Hiatal hernia Hyperlipidemia Hypertension Multiple thyroid nodules Nonspecific (abnormal) findings on radiological and other examination of genitourinary organs congenital atrophy left kidney DANIEL (obstructive sleep apnea) DME [employer] for Aut[employer] Pituitary dwarfism (HCC) Type II or unspecified type diabetes mellitus without mention of complication, not stated as uncontrolled Unspecified hypothyroidism Vertigo, peripheral PAST SURGICAL HISTORY Procedure Laterality Date ABDOMINAL SURGERY HX APPENDECTOMY APPENDECTOMY HX CATARACT SURGERY, COMPLEX 01/11/2018 CHOLECYSTOSTOMY PRQ W/IMAGING & CATHETER PLMT 2005 cholecystectomy COLONOSCOPY 11/19/2021 repeat in 5 years COLONOSCOPY FLX DX W/COLLJ SPEC WHEN PFRMD 11/03/2012 Colonoscopy COLONOSCOPY FLX DX W/COLLJ SPEC WHEN PFRMD 02/20/2016 Colonoscopy COLONOSCOPY FLX DX W/COLLJ SPEC WHEN PFRMD 02/23/2019 Colonoscopy EGD W/O BRSH SPEC VARICIES INJ 11/19/2021 ESOPHAGOGASTRODUODENOSCOPY TRANSORAL DIAGNOSTIC 11/03/2012 EGD EYE SURGERY HX Bilateral cataract KIDNEY TRANSPLANT HX MYRINGOTOMY ASPIR&/EUSTACHIAN TUBE NFLTJ ANES Myringotomy/tubes NEUROPLASTY &/TRANSPOS MEDIAN NRV CARPAL TUNNE 08/25/2012 Carpal tunnel decomp NEUROPLASTY &/TRANSPOS MEDIAN NRV CARPAL TUNNE 09/14/2013 CTR left hand RENAL ALLOTRANSPLANTATION W/ GRAFT W/O RECIPIENT NEPHRECTOMY Right 09/24/2019 Kidney transplant TONSILLECTOMY HX FAMILY HISTORY Problem Relation Age of Onset Cancer Mother lung Heart Mother CHF, CAD Cervical Cancer Mother Hypertension Father other (tuberculosis) Father other (Brain aneurysm) Father Colon Cancer Brother Heart Attack Brother other (Brain aneurysm) Brother Heart Maternal Grandmother CHF Colon Cancer Maternal Grandfather Heart Maternal Aunt [place], CHF,Pacemaker Ischemic Heart Disease Paternal Uncle Heart Other Stents placed due to [place] Colon Cancer Maternal cousin Social History Tobacco Use Smoking status: Never Smokeless tobacco: Never Vaping Use Vaping Use: Never used Substance Use Topics Alcohol use: No Drug use: No Past medical history, appointments, medications, allergies reviewed. Pertinent Lab/Diagnostic Studies are reviewed and discussed today Current Outpatient Medications: pantoprazole DR (PROTONIX) 40 mg tablet blood sugar diagnostic (GetTaxiTOUCH VERIO TEST STRIPS) test strip metFORMIN (GLUCOPHAGE) 500 mg tablet everolimus, immunosuppressive, (ZORTRESS) 0.5 mg tab tablet glimepiride (AMARYL) 1 mg tablet amLODIPine (NORVASC) 5 mg tablet pravastatin (PRAVACHOL) 40 mg tablet predniSONE (DELTASONE) 5 mg tablet levothyroxine (LEVOXYL) 50 mcg tablet tacrolimus IR (PROGRAF) 1 mg capsule Blood-Glucose Meter monitoring kit loratadine (CLARITIN) 10 mg tablet Lancets lancets CPAP ASPIRIN 81 MG TAB Review of Systems CONSTITUTIONAL: No fevers, chills night sweats, unintended weight loss CARDIOVASCULAR: No chest pain, dyspnea, palpitations, orthopnea, PND, ankle edema. PULM: No dyspnea, unexplained cough. GI: No dysphagia/odynophagia, problematic reflux, constipation, diarrhea, changes in stool habits, hematochezia, melena. : No new urinary complaints, including dysuria, gross hematuria or pyuria. NEURO: No new balance problems, peripheral weakness/paresthesias or numbness of concern. Physical Exam BP 112/62 (BP Site: Left Arm, BP Position: Sitting, BP Cuff Size: Large Adult) Pulse 64 Temp 36.6 C (97.9 F) Resp 12 Ht 127 cm (4' 2 ) Wt 55.3 kg (122 lb) SpO2 100% BMI 34.31 kg/m General appearance: Well appearing, alert, in no acute distress, well nourished. Skin: Skin color, texture, turgor normal, no suspicious rashes or lesions Head: Normocephalic, no masses, lesions, tenderness or abnormalities Eyes: Anicteric sclera. Pupils are equally round and reactive to light. Extraocular movements are intact. Lungs: Lungs clear to auscultation. No wheezing, rhonchi, rales Heart: RRR without murmur, gallop, or rubs. Extremities: No deformities, edema, skin discoloration, clubbing or cyanosis. Good capillary refill. ASSESSMENT/PLAN: 1. Type 2 diabetes mellitus without complication, without long-term current use of insulin ([facility]) - ICD9: 250.00, ICD10: E11.9 (primary diagnosis) Well controlled - COMP METABOLIC PANEL 2. Secondary renal hyperparathyroidism (HCC) - ICD9: 588.81, ICD10: N25.81 Stable 3. Type 2 diabetes mellitus with stage 3a chronic kidney disease, without long- term current use of insulin ([facility]) - ICD9: 250.40, 585.3, ICD10: E11.22, N18.31 Her Diabetes Mellitus is well controlled. 4. Stage 3a chronic kidney disease (HCC) - ICD9: 585.3, ICD10: N18.31 - eGFR: Stable CKD: Stage 3, recent labs reviewed, shows GFR is stable, not significantly changed from previous labs. Discussed the importance of staying off the NSAIDs naproxen, motrin, brufen, aleve etc and contrast., adequate hydration Keeping blood pressure under control. 5. 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 Patient said she used to get 200 strips for a month. Advised patient that if she is not using insulin her insurance may not cover 200 strips. Pending rx to file to [facility]. Please advise Patient has been identified by name and date of : Patient phones for refill(s): Requested Prescriptions Pending Prescriptions Disp Refills blood sugar diagnostic (ONETOUCH VERIO TEST STRIPS) test strip 200 Strip 5 Sig: testing 6 times daily times daily DX E11.9 Insulin NO Date of last office visit in primary care: 08/06/2022, has appt 02/04/2023 Last 2 Encounter Wt Readings: Date: Wt: 10/21/2022 53.1 kg (117 lb) 08/06/2022 53.1 kg (117 lb) Previous labs/tests for medication: Diabetes: Hemoglobin A1C (%) Date Value 03/13/2022 6.3 09/07/2021 6.0 02/14/2021 6.0 Please advise. Thank you. Maria M Mosquera LPN documented in this encounterWayne Hospital04-12-2023 Miscellaneous Notes* Telephone Encounter - Loyda Valverde LPN - 12/22/2022 7:48 AM EDT Patient has been identified by name and date of : No Patient phones for refill(s): Requested Prescriptions Pending Prescriptions Disp Refills metFORMIN (GLUCOPHAGE) 500 mg tablet [Pharmacy Med Name: METFORMIN HCL 500MG TABS] 30 tablet 5 Sig: TAKE ONE TABLET BY MOUTH EVERY DAY WITH BREAKFAST Date of last office visit in primary care: 08/06/22 Last 2 Encounter Wt Readings: Date: Wt: 10/21/2022 53.1 kg (117 lb) 08/06/2022 53.1 kg (117 lb) Previous labs/tests for medication: Diabetes: Hemoglobin A1C (%) Date Value 03/13/2022 6.3 09/07/2021 6.0 02/14/2021 6.0 Please advise. Thank you. Loyda Valverde LPN documented in this encounterWayne Hospital03-13-2023 Miscellaneous Notes* Telephone Encounter - Zandra Goins LPN - 11/22/2022 5:36 PM EDT Patient has been identified by name and date of : Yes, Patient phones for refill(s): Requested Prescriptions Pending Prescriptions Disp Refills glimepiride (AMARYL) 1 mg tablet 30 tablet 11 Sig: Please take 0.5 to 1 pills at lunch daily depending on the pre lunch sugars. blood sugar diagnostic (ONETOUCH VERIO TEST STRIPS) test strip 30 Strip 5 Sig: testing 1 time daily times daily DX E11.9 Insulin NO Date of last office visit in primary care: 04/30/2022 6 month follow-up: 02/04/2023 Last 2 Encounter Wt Readings: Date: Wt: 10/21/2022 53.1 kg (117 lb) 08/06/2022 53.1 kg (117 lb) Previous labs/tests for medication: Diabetes: Hemoglobin A1C (%) Date Value 03/13/2022 6.3 09/07/2021 6.0 02/14/2021 6.0 Please advise. Thank you. Zandra Goins LPN * Telephone Encounter - Rebeca Mcarthur [facility] - 11/22/2022 5:02 PM EDT .Patient has been identified by name and date of : Yes Requested Prescriptions Pending Prescriptions Disp Refills glimepiride (AMARYL) 1 mg tablet 30 tablet 11 Sig: Please take 0.5 to 1 pills at lunch daily depending on the pre lunch sugars. blood sugar diagnostic (ONETOUCH VERIO TEST STRIPS) test strip 30 Strip 5 Sig: testing 1 time daily times daily DX E11.9 Insulin NO RX INSTRUCTIONS: Patient aware RX will be sent to pharmacy. No need to notify patient. Rebec[facility] documented in this encounterWayne Hospital02-28-2023 Miscellaneous Notes* Telephone Encounter - Balta Cloud Ma - 11/09/2022 11:46 AM EST Patient notified, verbalized understanding. * Telephone Encounter - Marcella Moya LPN - 11/08/2022 2:38 PM EST Pt's last A1c was 03/13/22 it was 6.3 She is taking oral medicines only. Can this be changed to testing daily which is what insurance covers? * Telephone Encounter - Simin Espana RN - 11/08/2022 2:15 PM EST Patient calling to say she needs prior authorization for test strips. PRIOR AUTHORIZATION Medication for Prior Authorization: blood sugar diagnostic test strips (ONETOUCH VERIO) Other formulary meds available : NO Insurance Company: [employer] phone number: Patient insurance ID number: [id number] Simin Espana RN documented in this encounterWayne Hospital02-16-2023 Miscellaneous Notes* Telephone Encounter - Irish Winkler LPN - 10/28/2022 10:37 AM EST [facility] calling to get refills today for pt if possible. They have to synchronize her medications and they are due to be picked up today. Patient has been identified by name and date of : Yes, Provider Dr. Guzmán Date 10/28/22 Time 10:39 am Pharmacy phones for refill(s): Requested Prescriptions Pending Prescriptions Disp Refills amLODIPine (NORVASC) 5 mg tablet [Pharmacy Med Name: AMLODIPINE BESYLATE 5MG TABS] 90 tablet 1 Sig: TAKE ONE TABLET BY MOUTH EVERY DAY pravastatin (PRAVACHOL) 40 mg tablet [Pharmacy Med Name: PRAVASTATIN SODIUM 40MG TABS] 90 tablet 1 Sig: TAKE ONE TABLET BY MOUTH AT BEDTIME Date of last office visit in primary care: 08/06/22 next apt 02/04/23 Last 2 Encounter Wt Readings: Date: Wt: 10/21/2022 53.1 kg (117 lb) 08/06/2022 53.1 kg (117 lb) Previous labs/tests for medication: Cholesterol: HDL Cholesterol (mg/dL) Date Value 10/16/2022 86 09/07/2021 84 LDL Cholesterol (mg/dL) Date Value 10/16/2022 93 09/07/2021 107 ALT (U/L) Date Value 10/16/2022 19 10/16/2021 18 Non HDL Cholesterol (mg/dL) Date Value 10/16/2022 123 09/07/2021 135 Blood Pressure: BUN (mg/dL) Date Value 10/16/2022 16 10/16/2021 23 Sodium (mmol/L) Date Value 10/16/2022 141 10/16/2021 141 Last 1 Encounter BP Readings: Date: BP: 10/21/2022 142/63 Thank you. 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 No Do you feel like you are dehydrated for any reason, including not being able to eat or drink normally, or having less urine/much darker urine than normal for you? No Do you check your blood pressure at home? Yes Have your blood pressure readings been NOT at your goal - stated fluctuates, which is normal for her - not concerned & denies need to speak with Virtualist at this time BP while talking to PCC: 148/89 73 - been busy around the house today INSIGHT CDM ESCALATION Provider Action/FYI: Left message BlikBookhart message sent Message received via: [employer] - No contact made with patient Left Message for PatientQueenie River my name is Lisa Diamond RN [facility]. I am calling about your responses to our [employer] Home Monitoring questionnaire. Sorry I am not able to speak with you. If you have a problem that needs to be addressed by your physician please contact your PCP office--End Outreach 10/20/2022 9:26 AM EST - Filed by Patient Do you have new or worse shortness of breath with activity? No Do you feel like you are dehydrated for any reason, including not being able to eat or drink normally, or having less urine/much darker urine than normal for you? No Do you check your blood pressure at home? Yes Have your blood pressure readings been NOT at your goal documented in this encounterWayne Hospital12-23-2022 History of Present illness Narrative* Dorie Zuñiga PA-C - 09/03/2022 4:00 PM EST VIRTUAL VISIT FOLLOW UP I had a virtual visit with Ms. Duran today for follow up of GERD. UPDATED HISTORY: Protonix 40 mg daily working very well for her GERD. States her reflux has felt better than it has in years . Taking fiber capsules, Gas-X PRN with good regular Bms daily, no blood/black coloring. EGD/Colon 11/2021 FINAL DIAGNOSIS A. Stomach, antrum, biopsy: - Oxyntic mucosa with no significant diagnostic alterations. - No morphologic evidence of Helicobacter pylori organisms. B. Colon, transverse, polypectomy: - Minute tubular adenoma. - Fragments of colonic mucosa with no significant diagnostic alterations JUDIE Manriquez 02/2022 Patient presents today follow up GERD symptoms was last seen 12/01/2021. She reports since being omeprazole 40mg She reports the only thing she notice is soreness in epigastric abdomen when her cat is laying on her stomach. She reports she is taking fiber capsule 3 in the morning and 3 in the evening. She sometimes she has bloating and gas and take GAS-x as needed. PAST MEDICAL HISTORY Diagnosis Date Amenorrhea, primary due to hormone deficiency Arthritis Blind left eye ambylopia Carpal tunnel syndrome Chronic renal insufficiency congenital atrophy left kidney CKD (chronic kidney disease) Diabetes mellitus, type 2 (HCC) 2011 Environmental allergies GERD (gastroesophageal reflux disease) Gout Growth hormone deficiency (HCC) Hearing loss bilateral, right TM scars Hiatal hernia Hyperlipidemia Hypertension Multiple thyroid nodules Nonspecific (abnormal) findings on radiological and other examination of genitourinary organs congenital atrophy left kidney DANIEL (obstructive sleep apnea) DME [employer] for [employer] Pituitary dwarfism (HCC) Type II or unspecified type diabetes mellitus without mention of complication, not stated as uncontrolled Unspecified hypothyroidism Vertigo, peripheral PAST SURGICAL HISTORY Procedure Laterality Date ABDOMINAL SURGERY HX APPENDECTOMY APPENDECTOMY HX CATARACT SURGERY, COMPLEX 01/11/2018 CHOLECYSTOSTOMY PRQ W/IMAGING & CATHETER PLMT 2004 cholecystectomy COLONOSCOPY 11/19/2021 repeat in 5 years COLONOSCOPY FLX DX W/COLLJ SPEC WHEN PFRMD 11/03/2012 Colonoscopy COLONOSCOPY FLX DX W/COLLJ SPEC WHEN PFRMD 02/20/2016 Colonoscopy COLONOSCOPY FLX DX W/COLLJ SPEC WHEN PFRMD 02/23/2019 Colonoscopy EGD W/O [facility] SPEC VARICIES INJ 11/19/2021 ESOPHAGOGASTRODUODENOSCOPY TRANSORAL DIAGNOSTIC 11/03/2012 EGD EYE SURGERY HX Bilateral cataract KIDNEY TRANSPLANT HX MYRINGOTOMY ASPIR&/EUSTACHIAN TUBE NFLTJ ANES Myringotomy/tubes NEUROPLASTY &/TRANSPOS MEDIAN NRV CARPAL TUNNE 08/25/2012 Carpal tunnel decomp NEUROPLASTY &/TRANSPOS MEDIAN NRV CARPAL TUNNE 09/14/2013 CTR left hand RENAL ALLOTRANSPLANTATION W/ GRAFT W/O RECIPIENT NEPHRECTOMY Right 09/24/2019 Kidney transplant TONSILLECTOMY HX FAMILY HISTORY Problem Relation Age of Onset Cancer Mother lung Heart Mother CHF, CAD Cervical Cancer Mother Hypertension Father other (tuberculosis) Father other (Brain aneurysm) Father Colon Cancer Brother Heart Attack Brother other (Brain aneurysm) Brother Heart Maternal Grandmother CHF Colon Cancer Maternal Grandfather Heart Maternal Aunt [place], CHF,Pacemaker Ischemic Heart Disease Paternal Uncle Heart Other Stents placed due to [place] Colon Cancer Maternal cousin Social History Tobacco Use Smoking status: Never Smokeless tobacco: Never Vaping Use Vaping Use: Never used Substance Use Topics Alcohol use: No Drug use: No Current Outpatient Medications Medication Sig Dispense Refill pantoprazole DR (PROTONIX) 40 mg tablet Take 1 tablet by mouth once daily. 90 tablet 1 metFORMIN (GLUCOPHAGE) 500 mg tablet Take 1 tablet by mouth daily with breakfast. 30 tablet 5 predniSONE (DELTASONE) 5 mg tablet TAKE ONE TABLET BY MOUTH EVERY DAY 90 tablet 3 blood sugar diagnostic (GetTaxiTOUCH VERIO TEST STRIPS) test strip testing 6 times daily DX E11.9 Insulin NO 200 Strip 5 amLODIPine (NORVASC) 5 mg tablet TAKE ONE TABLET BY MOUTH EVERY DAY 90 tablet 1 pravastatin (PRAVACHOL) 40 mg tablet TAKE ONE TABLET BY MOUTH AT BEDTIME 90 tablet 1 levothyroxine (LEVOXYL) 50 mcg tablet Take 1 tablet by mouth once daily. Take on empty stomach. ForThyroid 30 tablet 11 tacrolimus IR (PROGRAF) 1 mg capsule TAKE ONE CAPSULE BY MOUTH EVERY MORNING AND TAKE ONE CAPSULE BY MOUTH EVERY EVENING (12 HOURS APART) 60 capsule 11 benzonatate (TESSALON PERLES) 100 mg capsule Take 1 capsule by mouth three times daily as needed for cough. 21 capsule 0 everolimus, immunosuppressive, (ZORTRESS) 0.5 mg tab tablet TAKE ONE TABLET BY MOUTH EVERY MORNING AND TAKE 2 TABLETS EVERY EVENING. 12 HOURS APART. 270 tablet 3 glimepiride (AMARYL) 1 mg tablet Please take 0.5 to 1 pills at lunch daily depending on the pre lunch sugars. 30 tablet 11 Blood-Glucose Meter monitoring kit Glucose Meter Kit (choose brand covered by insurance)- Dx: Type 2 DM - Controlled E11.9 1 Each 0 loratadine (CLARITIN) 10 mg tablet Take 1 tablet by mouth once daily. Lancets lancets Test blood sugar(s) 6 times daily. Dx: Type 2 DM - Controlled E11.9 Insulin: No 200Each 11 CPAP Initiate Auto PAP @ 5-20 cm of water with humidification. Mask (per patient preference) optional chin strap (if indicated) , filters, tubing, humidifier and lifetime supplies. 1 Device 0 ASPIRIN 81 MG TAB Take one(1) tablet daily. 30 11 No current facility-administered medications for this visit. ALLERGIES Allergen Reactions Dust Mites Unknown Penicillins Mental Status Change Tylenol-Codeine #3 * Hives Augmentin [Amoxicil* Mental Status Change Sulfa (Sulfonamide * Rash Cephalosporins Other: See Comments sneezing Doxycycline Hyclate Diarrhea, GI Upset, Vomiting Seasonal Allergies Grass Pollen Itching REVIEW OF SYSTEMS: PAIN ASSESSMENT: Negative for pain, history of chronic pain, or current treatment for a chronic pain condition. 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, abnormal vaginal discharge PHYSICAL FINDINGS OF NOTE: General - Normal, healthy, cooperative, in no acute distress Able to interact verbally by video conference Psych - ORIENTATION: normal to time place, person and situation Mood/Affect: AFFECT AND MOOD: Normal Head/Neuro - Normal size and shape Facial appearance normal Pulmonary - respiratory effort normal Cardiovascular - patient describes extremities normal, warm, no cyanosis,no clubbing, and no edema Abdominal - Not performed Skin - abnormal lesions not visualized Motor - patient seen sitting with Normal appearing strength and coordination Anorectal exam - Not Performed Assessment/Plan (K21.9) Gastroesophageal reflux disease without esophagitis (primary encounter diagnosis) (Z86.010) Personal history of colonic polyps 1. Gastroesophageal reflux disease without esophagitis - Doing very well with Protonix 40 mg daily - Follow reflux precautions - Avoid NSAIDs 2. Personal history of colonic polyps - Repeat colon 11/2026 - Constipation/gas under control with fiber capsules, Gas-X PRN Follow up in office 12 months/PRN. I spent a total of <10 minutes on the date of the service which included preparing to see the patient, [id number] patient care, completing clinical documentation, obtaining and/or reviewing separately obtained history, performing a medically appropriate examination, counseling and educating the patient/family/caregiver, ordering medications, tests, or procedures, communicating with other HCPs (not separately reported), independently interpreting results (not separately reported), communicating results to the patient/family/caregiver, and care coordination (not separately reported). Dorie Zuñiga PA-C September 03, 2022 2:44 PM documented in this encounterWayne Hospital12-14-2022 Miscellaneous Notes* Telephone Encounter - Tessa Epps MA - 08/25/2022 11:42 AM EST Patient phones requesting refills as follows: Requested Prescriptions Pending Prescriptions Disp Refills pantoprazole DR (PROTONIX) 40 mg tablet 90 tablet 1 Sig: Take 1 tablet by mouth once daily. Please review and advise. Tessa Epps MA documented in this encounterWayne Hospital12-12-2022 Miscellaneous Notes* Letter - Mammography Coordinator - 08/23/2022 10:39 AM EST August 23, 2022 PID: [id number] Eileen JohnQueenie Roger [address] [place] [id number] Dear Ms. Duran, We are pleased to inform you that the results of your recent breast imaging exam on 08/20/2022 are normal. Early detection of cancer is very important. We also understand recommendations regarding breast cancer screening are controversial. Please discuss with your primary care provider which strategy is best for you and whether a mammogram is right for you. Your imaging studies and report will be kept on file at [facility] as part of your permanent medical record and are available for your continuing care. Thank you for allowing us to help in meeting your health care needs. Sincerely, Dr. Figueroa Interpreting Radiologist [facility] (Normal over 40) documented in this encounterWayne Hospital11-25-2022 History of Present illness Narrative* Tameka Guzmán MD - 08/06/2022 4:06 PM EST Reason for Visit Patient presents with: F/U Diabetes 3 Month Eileen Duran is a 62 year old female who presents here today for Above Complaints.. Health Maintenance HEPATITIS A(1 of 2 - Risk 2-dose series) BP CONTROLLED (<130/80) DEPRESSION ASSESSMENT COVID-19 VACCINE(5 - Booster for Moderna series) DILATED RETINAL EXAM INFLUENZA(1) DTAP,TDAP,TD(2 - Td or Tdap) MAMMOGRAM HPI It has been a couple years since the patient had her renal transplant, she had gone through the rejection, was on steroids, started on insulin, the steroids are tapered only on 5 mgs of prednisone daily. She is not on insulin any more that was tapered off She is on the metformin. Patient is taking 3 different rejection medications. Tacrolimus, everolimus and prednisone. Had been to urgent care 3 weeks ago for ear infection, patientthat she is doing well. Patient goes for regular full body skin checks. Hypothyroidism. She is doing well on her current dose of Synthroid. Denies fatigue, cold intolerance and swelling in feet. TSH recently checked and normal. No problem-specific Assessment & Plan notes found for this encounter. PAST MEDICAL HISTORY Diagnosis Date Amenorrhea, primary due to hormone deficiency Arthritis Blind left eye ambylopia Carpal tunnel syndrome Chronic renal insufficiency congenital atrophy left kidney CKD (chronic kidney disease) Diabetes mellitus, type 2 (HCC) 2011 Environmental allergies GERD (gastroesophageal reflux disease) Gout Growth hormone deficiency (HCC) Hearing loss bilateral, right TM scars Hiatal hernia Hyperlipidemia Hypertension Multiple thyroid nodules Nonspecific (abnormal) findings on radiological and other examination of genitourinary organs congenital atrophy left kidney DANIEL (obstructive sleep apnea) DME [employer] for Autop[employer] Pituitary dwarfism (HCC) Type II or unspecified type diabetes mellitus without mention of complication, not stated as uncontrolled Unspecified hypothyroidism Vertigo, peripheral PAST SURGICAL HISTORY Procedure Laterality Date ABDOMINAL SURGERY HX APPENDECTOMY APPENDECTOMY HX CATARACT SURGERY, COMPLEX 01/11/2018 CHOLECYSTOSTOMY PRQ W/IMAGING & CATHETER PLMT 2004 cholecystectomy COLONOSCOPY 11/19/2021 repeat in 5 years COLONOSCOPY FLX DX W/COLLJ SPEC WHEN PFRMD 11/03/2012 Colonoscopy COLONOSCOPY FLX DX W/COLLJ SPEC WHEN PFRMD 02/20/2016 Colonoscopy COLONOSCOPY FLX DX W/COLLJ SPEC WHEN PFRMD 02/23/2019 Colonoscopy EGD W/O BRSH SPEC VARICIES INJ 11/19/2021 ESOPHAGOGASTRODUODENOSCOPY TRANSORAL DIAGNOSTIC 11/03/2012 EGD EYE SURGERY HX Bilateral cataract KIDNEY TRANSPLANT HX MYRINGOTOMY ASPIR&/EUSTACHIAN TUBE NFLTJ ANES Myringotomy/tubes NEUROPLASTY &/TRANSPOS MEDIAN NRV CARPAL TUNNE 08/25/2012 Carpal tunnel decomp NEUROPLASTY &/TRANSPOS MEDIAN NRV CARPAL TUNNE 09/14/2013 CTR left hand RENAL ALLOTRANSPLANTATION W/ GRAFT W/O RECIPIENT NEPHRECTOMY Right 09/24/2019 Kidney transplant TONSILLECTOMY HX FAMILY HISTORY Problem Relation Age of Onset Cancer Mother lung Heart Mother CHF, CAD Cervical Cancer Mother Hypertension Father other (tuberculosis) Father other (Brain aneurysm) Father Colon Cancer Brother Heart Attack Brother other (Brain aneurysm) Brother Heart Maternal Grandmother CHF Colon Cancer Maternal Grandfather Heart Maternal Aunt [place], CHF,Pacemaker Ischemic Heart Disease Paternal Uncle Heart Other Stents placed due to [place] Colon Cancer Maternal cousin Social History Tobacco Use Smoking status: Never Smokeless tobacco: Never Vaping Use Vaping Use: Never used Substance Use Topics Alcohol use: No Drug use: No Past medical history, appointments, medications, allergies reviewed. Pertinent Lab/Diagnostic Studies are reviewed and discussed today Current Outpatient Medications: metFORMIN (GLUCOPHAGE) 500 mg tablet predniSONE (DELTASONE) 5 mg tablet blood sugar diagnostic (19payUCH VERIO TEST STRIPS) test strip amLODIPine (NORVASC) 5 mg tablet pravastatin (PRAVACHOL) 40 mg tablet levothyroxine (LEVOXYL) 50 mcg tablet tacrolimus IR (PROGRAF) 1 mg capsule benzonatate (TESSALON PERLES) [address] (PROTONIX) 40 mg tablet everolimus, immunosuppressive, (ZORTRESS) 0.5 mg tab tablet glimepiride (AMARYL) 1 mg tablet Blood-Glucose Meter monitoring kit loratadine (CLARITIN) 10 mg tablet Lancets lancets CPAP ASPIRIN 81 MG TAB Review of Systems CONSTITUTIONAL: No fevers, chills night sweats, unintended weight loss CARDIOVASCULAR: No chest pain, dyspnea, palpitations, orthopnea, PND, ankle edema. PULM: No dyspnea, unexplained cough. GI: No dysphagia/odynophagia, problematic reflux, constipation, diarrhea, changes in stool habits, hematochezia, melena. : No new urinary complaints, including dysuria, gross hematuria or pyuria. NEURO: No new balance problems, peripheral weakness/paresthesias or numbness of concern. Physical Exam BP 110/70 (BP Site: Left Arm, BP Position: Sitting, BP Cuff Size: Regular Adult) Pulse 71 Temp 37.1 C (98.7 F) Resp 12 Ht 134.6 cm (4' 5 ) Wt 53.1 kg (117 lb) SpO2 97% BMI 29.28 kg/m General appearance: Well appearing, alert, in no acute distress, well nourished. Skin: Skin color, texture, turgor normal, no suspicious rashes or lesions Head: Normocephalic, no masses, lesions, tenderness or abnormalities Eyes: Anicteric sclera. Pupils are equally round and reactive to light. Extraocular movements are intact. Lungs: Lungs clear to auscultation. No wheezing, rhonchi, rales Heart: RRR without murmur, gallop, or rubs. Extremities: No deformities, edema, skin discoloration, clubbing or cyanosis. Good capillary refill. ASSESSMENT/PLAN: 1. Essential hypertension - ICD9: 401.9, ICD10: I10 (primary diagnosis) - good control - Recommended regular aerobic exercise. - Recommend home blood pressure monitoring, to bring results in on next visit - Goal of BP <130/80 2. Other hyperlipidemia - ICD9: 272.4, ICD10: E78.49 Cont statin 3. Type 2 diabetes mellitus with stage 3a chronic kidney disease, without long- term current use of insulin (HCC) - ICD9: 250.40, 585.3, ICD10: E11.22, N18.31 Controlled. - Continue current medications 4. Acquired hypothyroidism - ICD9: 244.9, ICD10: E03.9 - Instructed patient on importance of taking on an empty stomach either first thing in the morning or at bedtime. Stable 5. Stage 3a chronic kidney disease (HCC) - ICD9: 585.3, ICD10: N18.31 Stable Tameka Guzmán MD documented in this encounterWayne Hospital11-05-2022 History of Present illness Narrative* Vane Avalos APRN.[employer] - 07/17/2022 8:21 AM EDT Subjective HPI Eileen presents with one day hx of ear pain, she states she woke up at 3 am with pain in her ear, she had earilier in the day had popping in the ar and noticed a bit of bloody drainage, she is not running a fever she does wear hearing aides, she is feeling well otherwise, slight non- productive cough. Blood pressure 142/84, pulse 85, resp. rate 16, weight 52.6 kg (116 lb), SpO2 97 %. PAST MEDICAL HISTORY Diagnosis Date Amenorrhea, primary due to hormone deficiency Arthritis Blind left eye ambylopia Carpal tunnel syndrome Chronic renal insufficiency congenital atrophy left kidney CKD (chronic kidney disease) Diabetes mellitus, type 2 (HCC) 2011 Environmental allergies GERD (gastroesophageal reflux disease) Gout Growth hormone deficiency (HCC) Hearing loss bilateral, right TM scars Hiatal hernia Hyperlipidemia Hypertension Multiple thyroid nodules Nonspecific (abnormal) findings on radiological and other examination of genitourinary organs congenital atrophy left kidney DANIEL (obstructive sleep apnea) DME [facility] for Autopap Pituitary dwarfism (HCC) Type II or unspecified type diabetes mellitus without mention of complication, not stated as uncontrolled Unspecified hypothyroidism Vertigo, peripheral PAST SURGICAL HISTORY Procedure Laterality Date ABDOMINAL SURGERY HX APPENDECTOMY APPENDECTOMY HX CATARACT SURGERY, COMPLEX 01/11/2018 CHOLECYSTOSTOMY PRQ W/IMAGING & CATHETER PLMT 2004 cholecystectomy COLONOSCOPY 11/19/2021 repeat in 5 years COLONOSCOPY FLX DX W/COLLJ SPEC WHEN PFRMD 11/03/2012 Colonoscopy COLONOSCOPY FLX DX W/COLLJ SPEC WHEN PFRMD 02/20/2016 Colonoscopy COLONOSCOPY FLX DX W/COLLJ SPEC WHEN PFRMD 02/23/2019 [facility] 11/19/2021 ESOPHAGOGASTRODUODENOSCOPY TRANSORAL DIAGNOSTIC 11/03/2012 EGD EYE SURGERY HX Bilateral cataract KIDNEY TRANSPLANT HX MYRINGOTOMY ASPIR&/EUSTACHIAN TUBE NFLTJ ANES Myringotomy/tubes NEUROPLASTY &/TRANSPOS MEDIAN NRV CARPAL TUNNE 08/25/2012 Carpal tunnel decomp NEUROPLASTY &/TRANSPOS MEDIAN NRV CARPAL TUNNE 09/14/2013 CTR left hand RENAL ALLOTRANSPLANTATION W/ GRAFT W/O RECIPIENT NEPHRECTOMY Right 09/24/2019 Kidney transplant TONSILLECTOMY HX ALLERGIES Dust Mites, Penicillins, Tylenol-Codeine #3 [Acetaminophen-Codeine], Augmentin [Amoxicillin-Pot Clavulanate], Sulfa (Sulfonamide Antibiotics), Cephalosporins, Seasonal Allergies, and Grass Pollen MEDICATIONS metFORMIN (GLUCOPHAGE) 500 mg tablet Take 1 tablet by mouth daily with breakfast. predniSONE (DELTASONE) 5 mg tablet TAKE ONE TABLET BY MOUTH EVERY DAY blood sugar diagnostic (ONETOUCH VERIO TEST STRIPS) test strip testing 6 times daily DX E11.9 Insulin NO amLODIPine (NORVASC) 5 mg tablet TAKE ONE TABLET BY MOUTH EVERY DAY pravastatin (PRAVACHOL) 40 mg tablet TAKE ONE TABLET BY MOUTH AT BEDTIME levothyroxine (LEVOXYL) 50 mcg tablet Take 1 tablet by mouth once daily. Take on empty stomach. ForThyroid tacrolimus IR (PROGRAF) 1 mg capsule TAKE ONE CAPSULE BY MOUTH EVERY MORNING AND TAKE ONE CAPSULE BY MOUTH EVERY EVENING (12 HOURS APART) glimepiride (AMARYL) 1 mg tablet Please take 0.5 to 1 pills at lunch daily depending on the pre lunch sugars. Blood-Glucose Meter monitoring kit Glucose Meter Kit (choose brand covered by insurance)- Dx: Type 2 DM - Controlled E11.9 loratadine (CLARITIN) 10 mg tablet Take 1 tablet by mouth once daily. Lancets lancets Test blood sugar(s) 6 times daily. Dx: Type 2 DM - Controlled E11.9 Insulin: No ASPIRIN 81 MG TAB Take one(1) tablet daily. doxycycline (VIBRA-TABS) 100 mg tablet Take 1 tablet by mouth twice daily for 10 days. benzonatate (TESSALON PERLES) 100 mg capsule Take 1 capsule by mouth three times daily as needed for cough. pantoprazole DR (PROTONIX) 40 mg tablet Take 1 tablet by mouth once daily. everolimus, immunosuppressive, (ZORTRESS) 0.5 mg tab tablet TAKE ONE TABLET BY MOUTH EVERY MORNING AND TAKE 2 TABLETS EVERY EVENING. 12 HOURS APART. CPAP Initiate Auto PAP @ 5-20 cm of water with humidification. Mask (per patient preference) optional chin strap (if indicated) , filters, tubing, humidifier and lifetime supplies. FAMILY HISTORY Problem Relation Age of Onset Cancer Mother lung Heart Mother CHF, CAD Cervical Cancer Mother Hypertension Father other (tuberculosis) Father other (Brain aneurysm) Father Colon Cancer Brother Heart Attack Brother other (Brain aneurysm) Brother Heart Maternal Grandmother CHF Colon Cancer Maternal Grandfather Heart Maternal Aunt [place], CHF,Pacemaker Ischemic Heart Disease Paternal Uncle Heart Other Stents placed due to [place] Colon Cancer Maternal cousin Social History Tobacco Use Smoking status: Never Smokeless tobacco: Never Vaping Use Vaping Use: Never used Substance Use Topics Alcohol use: No Drug use: No Review of Systems HENT: Positive for ear pain. Respiratory: Positive for cough. All other systems reviewed and are negative. Objective Physical Exam Constitutional: General: She is not in acute distress. Appearance: Normal appearance. She is not ill-appearing. HENT: Head: Normocephalic and atraumatic. Right Ear: External ear normal. Drainage (scant blood drainge in canal) present. There is no impacted cerumen. Tympanic membrane is erythematous. Left Ear: Tympanic membrane, ear canal and external ear normal. There is no impacted cerumen. Cardiovascular: Rate and Rhythm: Normal rate and regular rhythm. Pulmonary: Effort: Pulmonary effort is normal. No respiratory distress. Breath sounds: Normal breath sounds. No stridor. No wheezing, rhonchi or rales. Chest: Chest wall: No tenderness. Abdominal: General: Abdomen is flat. Palpations: Abdomen is soft. Musculoskeletal: Cervical back: Normal range of motion and neck supple. Skin: General: Skin is warm and dry. Neurological: General: No focal deficit present. Mental Status: She is alert and oriented to person, place, and time. Psychiatric: Mood and Affect: Mood normal. ASSESSMENT/PLAN: 1. Acute otitis media, right - ICD9: 382.9, ICD10: H66.91 - Will begin treatment with Doxycycline due to renal hx and allergy to multiple medications To follow up with pcp if not improving in 2-3 days Start antibiotic today Vane Avalos APRN.[facility] documented in this encounterWayne Hospital10-27-2022 Miscellaneous Notes* Telephone Encounter - Maria M Mosquera MARK - 07/08/2022 2:28 PM EDT Patient has been identified by name and date of : Yes Pharmacy phones for refill(s): Requested Prescriptions Pending Prescriptions Disp Refills metFORMIN (GLUCOPHAGE) 500 mg tablet 30 tablet 5 Sig: Take 1 tablet by mouth daily with breakfast. Date of last office visit in primary care: 04/30/2022, has appt 08/06/2022 Last 2 Encounter Wt Readings: Date: Wt: 04/30/2022 54 kg (119 lb) 03/19/2022 53.9 kg (118 lb 12.8 oz) Previous labs/tests for medication: Diabetes: Hemoglobin A1C (%) Date Value 03/13/2022 6.3 09/07/2021 6.0 02/14/2021 6.0 Please advise. Thank you. Maria M Mosquera LPN documented in this encounterWayne Hospital10-13-2022 History of Present illness Narrative* Driss Do MD - 06/24/2022 4:00 PM EDT AMBULATORY TELEPHONE VISIT Eileen Duran has consented to this telephone encounter. Total Time Spent: 15 minutes Driss Do MD [facility] Follow up Portions of this note were copied from the last encounter. Changes were made to appropriately reflect updated history and interval events, physical exam, data review, and medical decision making. This is a 61 year old female who presents for follow up of a ROBE kidney transplant. PRA 0%. 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 HPI: Transplant date: 09/24/2019 Original Disease: Congenital Atrophic Kidney CMV status: -/+ EBV status: +/+ Induction therapy: Simulect Ureteral Stent: Yes; Removal Date: 10/26/2019 Major events since transplantation: Prior to transplant - UC positive (09/17/19) for Strep Agalactiae(group B strep). Treated with Keflex 500mg BID x7d 09/30/2019: ED visti d/t RLE edema. Duplex negative. Discharged home with f/u in outpatient transplant office. BK + since 11/19/2019. On FK and Everolimus 01/24/2020: 14,218 03/20/22: COVID-19. Treated with molnupiravir Protocol Bx results: 3-6 mos: 03/04/2020: Moderate interstitial inflammation and tubulitis consistent with [place] Grade 1Aacute cellular rejection. Tubular atrophy and interstitial fibrosis, moderate. Treated with 500mg IVMP pulse with PO taper. F/u biopsy 05/27/20: Negative for acute rejection, Grade 0. Minimal chronic interstitial inflammation and minimal interstitial fibrosis. 1 yr: Will need to schedule Local Manager Of Corporate Communications: Ani Yun VETERINARY TECHNICIAN ASSISTANT Lab Frequency: Monthly Home BP: 120's/70's New Complaints: Feeling well overall Had 2 moles removed from nose. Biopsy negative. 1 mole removed from neck with biopsy pre-cancerous.Will have follow up on dermatology on 07/16. Unsure if Moh's will be performed Informed okay to receive flu shot and COVID booster No complaints Current Outpatient Medications Medication Sig predniSONE (DELTASONE) 5 mg tablet TAKE ONE TABLET BY MOUTH EVERY DAY blood sugar diagnostic (ONETOUCH VERIO TEST STRIPS) test strip testing 6 times daily DX E11.9 Insulin NO amLODIPine (NORVASC) 5 mg tablet TAKE ONE TABLET BY MOUTH EVERY DAY pravastatin (PRAVACHOL) 40 mg tablet TAKE ONE TABLET BY MOUTH AT BEDTIME levothyroxine (LEVOXYL) 50 mcg tablet Take 1 tablet by mouth once daily. Take on empty stomach. ForThyroid tacrolimus IR (PROGRAF) 1 mg capsule TAKE ONE CAPSULE BY MOUTH EVERY MORNING AND TAKE ONE CAPSULE BY MOUTH EVERY EVENING (12 HOURS APART) benzonatate (TESSALON PERLES) 100 mg capsule Take 1 capsule by mouth three times daily as needed for cough. pantoprazole DR (PROTONIX) 40 mg tablet Take 1 tablet by mouth once daily. metFORMIN (GLUCOPHAGE) 500 mg tablet Take 1 tablet by mouth daily with breakfast. everolimus, immunosuppressive, (ZORTRESS) 0.5 mg tab tablet TAKE ONE TABLET BY MOUTH EVERY MORNING AND TAKE 2 TABLETS EVERY EVENING. 12 HOURS APART. glimepiride (AMARYL) 1 mg tablet Please take 0.5 to 1 pills at lunch daily depending on the pre lunch sugars. Blood-Glucose Meter monitoring kit Glucose Meter Kit (choose brand covered by insurance)- Dx: Type 2 DM - Controlled E11.9 loratadine (ALLERGY RELIEF, LORATADINE,) 10 mg tablet Take 1 tablet by mouth once daily. Lancets lancets Test blood sugar(s) 6 times daily. Dx: Type 2 DM - Controlled E11.9 Insulin: No CPAP Initiate Auto PAP @ 5-20 cm of water with humidification. Mask (per patient preference) optional chin strap (if indicated) , filters, tubing, humidifier and lifetime supplies. ASPIRIN 81 MG TAB Take one(1) tablet daily. No current facility-administered medications for this visit. Medications updated and reviewed with patient ROS: No Fevers, Chills, No Nausea, vomiting, diarrhea No abdominal pain. Transplant incision healed No SOB, chest pain, pressure No edema, skin rash No dysuria, or frequency No WHATLEY, blurred vision or confusion Weight steady No change appetite All other system reviews negative. Hospitalized since last follow up: No Working for income: Yes; FT Karnofsky Index Scale: 90 - Able to carry on normal activity: minor signs or symptoms of disease. Newly Diabetic: No Rejection: No Malignancies: No Heber Sullivan RN I have confirmed and edited as necessary, the PFSH and ROS obtained by others. Driss Do MD No significant complaints except seeing dermatology and having some precancerous lesions removed. Rest of review of system as above. Creatinine (mg/dL) Date Value 06/12/2022 1.09 05/15/2022 1.10 04/17/2022 1.24 10/16/2021 1.18 09/19/2021 1.03 08/15/2021 0.96 BUN (mg/dL) Date Value 06/12/2022 22 05/15/2022 21 04/17/2022 16 10/16/2021 23 09/19/2021 19 08/15/2021 22 Estimated Glomerular Filtration Rate (mL/min/1.73m ) Date Value 06/12/2022 57 05/15/2022 56 04/17/2022 49 CO2 (mmol/L) Date Value 06/12/2022 21 05/15/2022 23 04/17/2022 24 10/16/2021 23 09/19/2021 25 08/15/2021 23 Potassium (mmol/L) Date Value 06/12/2022 4.1 05/15/2022 4.0 04/17/2022 4.3 10/16/2021 4.1 09/19/2021 4.3 08/15/2021 4.2 Tacrolimus/FK506 (ng/mL) Date Value 06/12/2022 6.4 05/15/2022 5.7 04/17/2022 6.2 10/16/2021 6.0 09/19/2021 6.0 08/15/2021 5.1 Hemoglobin (g/dL) Date Value 06/12/2022 12.9 05/15/2022 12.5 04/17/2022 13.0 10/16/2021 13.9 09/19/2021 14.2 08/15/2021 13.8 Platelet Count (k/uL) Date Value 06/12/2022 303 05/15/2022 263 04/17/2022 245 10/16/2021 261 09/19/2021 303 08/15/2021 254 WBC (k/uL) Date Value 06/12/2022 8.91 05/15/2022 8.03 04/17/2022 7.40 10/16/2021 9.77 09/19/2021 8.13 08/15/2021 8.09 Albumin (g/dL) Date Value 06/12/2022 3.8 05/15/2022 3.8 04/17/2022 4.0 10/16/2021 4.3 09/19/2021 4.3 08/15/2021 4.1 Phosphorus (mg/dL) Date Value 06/12/2022 2.8 05/15/2022 2.9 04/17/2022 2.7 10/16/2021 3.3 09/19/2021 2.6 08/15/2021 3.1 EVR 5 Impression: Excellent allograft function creatinine around 1. Tolerated immunosuppression well combination of tacrolimus and everolimus due to BK.- Recent BK detectable will monitor carefully. Health maintenance discussed including blood pressure, diabetes Driss Do MD This note was partially generated using PageBites voice recognition system, and there may be some incorrect words, spellings, and punctuation that were not noted in checking the note before saving. documented in this encounterWayne Hospital09-15-2022 Miscellaneous Notes* Telephone Encounter - Zandra Goins LPN - 05/27/2022 4:56 PM EDT Patient has been identified by name and date of : Yes Patient phones for refill(s): Requested Prescriptions Pending Prescriptions Disp Refills blood sugar diagnostic (ONETOUCH VERIO TEST STRIPS) test strip 200 Strip 5 Sig: testing 6 times daily DX E11.9 Insulin NO Date of last office visit in primary care: 04/30/2022 Appt: 08/06/2022 Last 2 Encounter Wt Readings: Date: Wt: 04/30/2022 54 kg (119 lb) 03/19/2022 53.9 kg (118 lb 12.8 oz) Previous labs/tests for medication: Diabetes: Hemoglobin A1C (%) Date Value 03/13/2022 6.3 09/07/2021 6.0 02/14/2021 6.0 Please advise. Thank you. Zandra Goins LPN * Telephone Encounter - Radha Dania - 05/27/2022 2:30 PM EDT Patient has been identified by name and date of : Yes Requested Prescriptions Pending Prescriptions Disp Refills blood sugar diagnostic (ONETOUCH VERIO TEST STRIPS) test strip 200 Strip 5 Sig: testing 6 times daily DX E11.9 Insulin NO RX INSTRUCTIONS: Patient aware RX will be sent to pharmacy. No need to notify patient. Radha Najera documented in this encounterWayne Hospital09-07-2022 History of Present illness Narrative* Liz Bell RN - 05/19/2022 4:22 PM EDT [employer] CDM Enrollment Provider Action/FYI: Spoke to pt, enrolled in [employer] via [employer], and given Healthy at Home contact number Perico this is Liz Bell RN your nurse Central Lab Technician. I am calling to provide you with a phone number to connect you with [facility] services. This number is available 7 days a week from 8am-8pm and provides you with one call access to nursing, appointments, and other valuable resources. I can also send this information to your [employer]. Please take the time to write this number down . Patient referred by: [facility] Contact made with patient: Yes - Patient identified by name and . Discussed care with patient Perico this is Liz Bell, RN and I am calling from Tameka Guzmán MD office at the [facility]. I am a RN Central Lab Technician with our [employer] Chronic Disease Management program. Tameka Guzmán MD wanted me to reach out to help you manage your health at home. Our goal is to keep you well at home.We want to help you manage your chronic disease by providing a safety net of resources around you, getting you the care you need in a timely manner, and hopefully keep you out of the ED and hospital.I will send you a few questions once a week through your [employer] account. It will automatically show up for you to complete. There are simple questions that will help us identify if you have any concerns or symptoms and I will call you to help get what you need. We will be able to connect you, review your symptoms, do an on demand visit, or communicate with Tameka Guzmán MD if needed. I am going to sign you up for the program now. Enrollment Questions: Let's get you enrolled in the program. Yes, Do you have regular access to a computer/smartphone? Yes. Goal Setting: I would like to take some time today to discuss your personal health goals. Yes, patient has goals. Capture the goal the patient wants to accomplish: To maintain quality of life and kidney function. Does the goal align with programs offered at the [facility]? No Patient accepts doggy daycare activities director Thank you for your time today. I am excited to work together in managing your health! You will receive information on next steps through your Plated account, and I will check back within a few weeks to ensure you have all that you need to use the program successfully. (Place name in care team and assign Plated Berry Picker questionnaire) Most people know what to do to become healthier, yet struggle to put it into action on their own.Itcan be hard to maintain a healthy lifestyle, especially when life is so stressful. Can we connect you with a [facility] Health Logging Assistant to find a program that could help you meet your goals? No Closing: Patient accepts doggy daycare activities director Thank you for your time today. I am excited to work together in managing your health! You will receive information on next steps through your Plated account, and I will check back within a few weeks to ensure you have all that you need to use the program successfully. (Place name in care team and assign MyChart Berry Picker questionnaire) documented [facility] Evaluation note* Diagnosis Stage 3 chronic kidney disease, unspecified whether stage 3a or 3b CKD (HCC)- Primary documented in this encounter [facility]08-20-2022 Miscellaneous Notes* Telephone Encounter - Melly Cantu RN - 05/01/2022 11:49 AM EDT Last Office Visit: 04/30/2022 Future Office Visit: 08/06/2022 Last Medication Refill: Pravastatin 11/18/2021 90 tab 1 refill Amlodipine 11/18/2021 90 tab 1 refill Date of Last Labs: 04/17/2022 documented in this encounter[facility]22 History of Present illness Narrative* Tameka Guzmán MD - 04/30/2022 2:49 PM EDT Reason for Visit Patient presents with: Same Day Appointment: moles on facce, chin and right arm itchy Eileen Duran is a 62 year old female who presents here today for Above Complaints.. Health Maintenance HEPATITIS A(1 of 2 - Risk 2-dose series) DEPRESSION SCREENING COVID-19 VACCINE(5 - Booster for Moderna series) DILATED RETINAL EXAM HPI Skin lesions: Patient notes they are itching on and off, and when they do itch it is pretty itchy. She has had these lesions for a while but they are just itching more than they did before. And she has been on immunosuppressive medication lately. HTN: Compliant with medications. Denies any chest pain, palpitations, or edema. No SOB. Doesn't check BP at home generally. Careful with diet to avoid salt, trying to eat more fruits and vegetables, exercises regularly. Reviewed blood work with her, stable kidney function. The vit d levels are normal. No problem-specific Assessment & Plan notes found for this encounter. PAST MEDICAL HISTORY Diagnosis Date Amenorrhea, primary due to hormone deficiency Arthritis Blind left eye ambylopia Carpal tunnel syndrome Chronic renal insufficiency congenital atrophy left kidney CKD (chronic kidney disease) Diabetes mellitus, type 2 (HCC) 2011 Environmental allergies GERD (gastroesophageal reflux disease) Gout Growth hormone deficiency (HCC) Hearing loss bilateral, right TM scars Hiatal hernia Hyperlipidemia Hypertension Multiple thyroid nodules Nonspecific (abnormal) findings on radiological and other examination of genitourinary organs congenital atrophy left kidney DANIEL (obstructive sleep apnea) DME [employer] for Aut[employer] Pituitary dwarfism (HCC) Type II or unspecified type diabetes mellitus without mention of complication, not stated as uncontrolled Unspecified hypothyroidism Vertigo, peripheral PAST SURGICAL HISTORY Procedure Laterality Date ABDOMINAL SURGERY HX APPENDECTOMY APPENDECTOMY HX CATARACT SURGERY, COMPLEX 01/11/2018 CHOLECYSTOSTOMY PRQ W/IMAGING & CATHETER PLMT 2005 cholecystectomy COLONOSCOPY 11/19/2021 repeat in 5 years COLONOSCOPY FLX DX W/COLLJ SPEC WHEN PFRMD 11/03/2012 Colonoscopy COLONOSCOPY FLX DX W/COLLJ SPEC WHEN PFRMD 02/20/2016 Colonoscopy COLONOSCOPY FLX DX W/COLLJ SPEC WHEN PFRMD 02/23/2019 Colonoscopy EGD W/O BRSH SPEC VARICIES INJ 11/19/2021 ESOPHAGOGASTRODUODENOSCOPY TRANSORAL DIAGNOSTIC 11/03/2012 EGD EYE SURGERY HX Bilateral cataract KIDNEY TRANSPLANT HX MYRINGOTOMY ASPIR&/EUSTACHIAN TUBE NFLTJ ANES Myringotomy/tubes NEUROPLASTY &/TRANSPOS MEDIAN NRV CARPAL TUNNE 08/25/2012 Carpal tunnel decomp NEUROPLASTY &/TRANSPOS MEDIAN NRV CARPAL TUNNE 09/14/2013 CTR left hand RENAL ALLOTRANSPLANTATION W/ GRAFT W/O RECIPIENT NEPHRECTOMY Right 09/24/2019 Kidney transplant TONSILLECTOMY HX FAMILY HISTORY Problem Relation Age of Onset Cancer Mother lung Heart Mother CHF, CAD Cervical Cancer Mother Hypertension Father other (tuberculosis) Father other (Brain aneurysm) Father Colon Cancer Brother Heart Attack Brother other (Brain aneurysm) Brother Heart Maternal Grandmother CHF Colon Cancer Maternal Grandfather Heart Maternal Aunt [place], CHF,Pacemaker Ischemic Heart Disease Paternal Uncle Heart Other Stents placed due to [place] Colon Cancer Maternal cousin Social History Tobacco Use Smoking status: Never Smokeless tobacco: Never Vaping Use Vaping Use: Never used Substance Use Topics Alcohol use: No Drug use: No Past medical history, appointments, medications, allergies reviewed. Pertinent Lab/Diagnostic Studies are reviewed and discussed today Current Outpatient Medications: levothyroxine (LEVOXYL) 50 mcg tablet tacrolimus IR (PROGRAF) 1 mg capsule benzonatate (TESSALON PERLES) [address] (PROTONIX) 40 mg tablet metFORMIN (GLUCOPHAGE) 500 mg tablet everolimus, immunosuppressive, (ZORTRESS) 0.5 mg tab tablet blood sugar diagnostic (ONETOUCH VERIO TEST STRIPS) test strip pravastatin (PRAVACHOL) 40 mg tablet amLODIPine (NORVASC) 5 mg tablet glimepiride (AMARYL) 1 mg tablet predniSONE (DELTASONE) 5 mg tablet Blood-Glucose Meter monitoring kit loratadine (ALLERGY RELIEF, LORATADINE,) 10 mg tablet Lancets lancets CPAP ASPIRIN 81 MG TAB Review of Systems CONSTITUTIONAL: No fevers, chills night sweats, unintended weight loss CARDIOVASCULAR: No chest pain, dyspnea, palpitations, orthopnea, PND, ankle edema. PULM: No dyspnea, unexplained cough. GI: No dysphagia/odynophagia, problematic reflux, constipation, diarrhea, changes in stool habits, hematochezia, melena. : No new urinary complaints, including dysuria, gross hematuria or pyuria. NEURO: No new balance problems, peripheral weakness/paresthesias or numbness of concern. Physical Exam BP 116/60 (BP Site: Left Arm, BP Position: Sitting, BP Cuff Size: Regular Adult) Pulse 73 Temp 37.1 C (98.8 F) Resp 12 Ht 134.6 cm (4' 5 ) Wt 54 kg (119 lb) SpO2 97% BMI 29.79 kg/m General appearance: Well appearing, alert, in no acute distress, well nourished. Skin: fleshy brasher, circular lesion on the glabal area, the right side of nasolabial fold , these areround circular lesions Head: Normocephalic, no masses, lesions, tenderness or abnormalities Eyes: Anicteric sclera. Pupils are equally round and reactive to light. Extraocular movements are intact. Lungs: Lungs clear to auscultation. No wheezing, rhonchi, rales Heart: RRR without murmur, gallop, or rubs. Extremities: No deformities, edema, skin discoloration, clubbing or cyanosis. Good capillary refill. ASSESSMENT/PLAN: 1. Skin lesion - ICD9: 709.9, ICD10: L98.9 (primary diagnosis) - CONSULT TO DERMATOLOGY 2. Stage 3a chronic kidney disease (HCC) - ICD9: 585.3, ICD10: N18.31 CKD: Stage 3, recent labs reviewed, shows GFR is stable, not significantly changed from previous labs. Discussed the importance of staying off the NSAIDs naproxen, motrin, brufen, aleve etc and contrast., adequate hydration Keeping blood pressure under control. 3. Type 2 diabetes mellitus with stage 3a chronic kidney disease, without long- term current use of insulin (HCC) - ICD9: 250.40, 585.3, ICD10: E11.22, N18.31 Hba1c is 6.3 4. Hypercalcemia - ICD9: 275.42, ICD10: E83.52 Recent labs dont show hypercalcemia 5. Essential hypertension - ICD9: 401.9, ICD10: I10 HTN: Compliant with medications. Denies any chest pain, palpitations, or edema. No SOB. Doesn't check BP at home generally. Careful with diet to avoid salt, trying to eat more fruits and vegetables, exercises regularly. Tameka Guzmán MD documented in this encounterWay[facility]07-28-2022 Miscellaneous Notes* Telephone Encounter - Ivory Velazquez - 04/08/2022 10:47 AM EDT [facility] AKIRA: 12/24/21 Patient's request for medication is as follows: Pending Prescriptions Disp Refills TACROLIMUS 1 MG CAPSULE, IMMEDIATE-RELEASE 60 capsule 11 Sig: TAKE ONE CAPSULE BY MOUTH EVERY MORNING AND TAKE ONE CAPSULE BY MOUTH EVERY EVENING (12 HOURS APART) HUY: No Please approve the above prescription(s) to electronically send to pharmacy. Ivory Velazquez documented in this encounterWayne Hospital07-28-2022 Miscellaneous Notes* Telephone Encounter - Maria M Mosquera LPN - 04/08/2022 10:45 AM EDT Patient has been identified by name and date of : Yes Pharmacy phones for refill(s): Pending Prescriptions Disp Refills LEVOTHYROXINE 50 MCG TABLET 30 tablet 11 Sig: Take 1 tablet by mouth once daily. Take on empty stomach. For Thyroid HUY: No Date of last office visit in primary care: 03/12/2022, has appt 04/30/2022 Last 2 Encounter Wt Readings: Date: Wt: 03/19/2022 53.9 kg (118 lb 12.8 oz) 12/24/2021 53.2 kg (117 lb 3.2 oz) Previous labs/tests for medication: Thyroid: TSH Date Value 03/13/2022 2.070 mIU/L 09/07/2021 1.870 uU/mL Please advise. Thank you. Maria M Mosquera LPN documented in this encounterWayne Hospital07-08-2022 Instructions* Patient Instructions* Irais Murphy APRN.VETERINARY TECHNICIAN ASSISTANT - 03/19/2022 5:00 PM EDT RESPIRATORY INFECTION GENERAL INFORMATION: An upper respiratory tract infection, or cold, is a viral infection of the airway passages. It can be caused by any one of almost 200 different viruses. Common symptoms include a runny or stuffy nose, sneezing, watery eyes, sore throat, cough, and slight fever. Colds are contagious, especially during the first 3 or 4 days and cannot be cured by antibiotics. They are spread by coughs, sneezes, anddirect contact, especially [id number]. A respiratory tract infection usually clears up in a few days, but some people may be sick for a week or two. INSTRUCTIONS: 1. Be careful not to blow your nose too hard because this may cause a nosebleed. 2. Use a cool-mist humidifier (vaporizer) to increase air moisture. This will make it easier for you to breathe. Do not use hot steam. 3. Rest as much as possible and get plenty of sleep. 4. Wash your hands often, especially after you blow your nose. Cover your mouth and nose with a tissue when you sneeze or cough. 5. Drink plenty of clear fluids (8 glasses a day) such as water, fruit juice, tea, clear soups, andcarbonated beverages. CONTACT YOUR DOCTOR IF : 1. Your fever lasts more than 3 days. 2. You have a sore throat that gets worse or you see white or yellow spots in your throat. 3. Your cough gets worse or lasts more than 10 days. 4. You develop a rash anywhere on your skin. 5. You have an earache or a headache. 6. You have thick greenish or yellowish discharge from your nose. RETURN IMMEDIATELY IF: 1. You cough up thick yellow, green, duran, or bloody sputum. 2. You have difficulty breathing, pain in your chest, or your skin or nails look duran or blue. 3. You have shaking chills or a temperature over 102 F (39 C). documented in this encounterWayne Hospital07-08-2022 History of Present illness Narrative* Irais Murphy APRN.CNP - 03/19/2022 4:08 PM EDT This note was created using [employer]. Subjective Eileen Duran is a 62 year old female. 62 year old female with PMH DM, hyperlipidemia, hypertension, GERD, CKD, kidney transplant (2020) presents for illness. Acute onset Tuesday night. +coughing +sputum +runny nose. + sneezing. +low grade fever. States that as the days have progressed her symptoms have worsened. Cough is worsening. Denies N/V/D. Denies hemoptysis. Denies SOB or dyspnea. Denies tobacco usage. The history is provided by the patient. No speech and language specialist was used. Cough This is a new problem. The current episode started more than 2 days ago. The problem occurs constantly. The problem has been gradually worsening. The cough is productive of sputum. There has been no fever. Associated symptoms include chills, headaches, rhinorrhea, sore throat and myalgias. Pertinent negatives include no chest pain, no sweats, no weight loss, no ear congestion, no ear pain, no shortness of breath, no wheezing and no eye redness. She has tried nothing for the symptoms. The treatment provided no relief. She is not a smoker. Her past medical history does not include bronchitis, pneumonia, bronchiectasis, COPD, emphysema or asthma. PAST MEDICAL HISTORY Diagnosis Date Amenorrhea, primary due to hormone deficiency Arthritis Blind left eye ambylopia Carpal tunnel syndrome Chronic renal insufficiency congenital atrophy left kidney CKD (chronic kidney disease) Diabetes mellitus, type 2 (HCC) 2011 Environmental allergies GERD (gastroesophageal reflux disease) Gout Growth hormone deficiency (HCC) Hearing loss bilateral, right TM scars Hiatal hernia Hyperlipidemia Hypertension Multiple thyroid nodules Nonspecific (abnormal) findings on radiological and other examination of genitourinary organs congenital atrophy left kidney DANIEL (obstructive sleep apnea) DME [employer] for [employer] Pituitary dwarfism (HCC) Type II or unspecified type diabetes mellitus without mention of complication, not stated as uncontrolled Unspecified hypothyroidism Vertigo, peripheral PAST SURGICAL HISTORY Procedure Laterality Date ABDOMINAL SURGERY HX APPENDECTOMY APPENDECTOMY HX CATARACT SURGERY, COMPLEX 01/11/2018 CHOLECYSTOSTOMY PRQ W/IMAGING & CATHETER PLMT 2004 cholecystectomy COLONOSCOPY 11/19/2021 repeat in 5 years COLONOSCOPY FLX DX W/COLLJ SPEC WHEN PFRMD 11/03/2012 Colonoscopy COLONOSCOPY FLX DX W/COLLJ SPEC WHEN PFRMD 02/20/2016 Colonoscopy COLONOSCOPY FLX DX W/COLLJ SPEC WHEN PFRMD 02/23/2019 Colonoscopy EGD W/O BRSH SPEC VARICIES INJ 11/19/2021 ESOPHAGOGASTRODUODENOSCOPY TRANSORAL DIAGNOSTIC 11/03/2012 EGD EYE SURGERY HX Bilateral cataract KIDNEY TRANSPLANT HX MYRINGOTOMY ASPIR&/EUSTACHIAN TUBE NFLTJ ANES Myringotomy/tubes NEUROPLASTY &/TRANSPOS MEDIAN NRV CARPAL TUNNE 08/25/2012 Carpal tunnel decomp NEUROPLASTY &/TRANSPOS MEDIAN NRV CARPAL TUNNE 09/14/2013 CTR left hand RENAL ALLOTRANSPLANTATION W/ GRAFT W/O RECIPIENT NEPHRECTOMY Right 09/24/2019 Kidney transplant TONSILLECTOMY HX ALLERGIES Dust Mites, Penicillins, Tylenol-Codeine #3 [Acetaminophen-Codeine], Augmentin [Amoxicillin-Pot Clavulanate], Sulfa (Sulfonamide Antibiotics), Cephalosporins, Seasonal Allergies, and Grass Pollen MEDICATIONS pantoprazole DR (PROTONIX) 40 mg tablet Take 1 tablet by mouth once daily. metFORMIN (GLUCOPHAGE) 500 mg tablet Take 1 tablet by mouth daily with breakfast. everolimus, immunosuppressive, (ZORTRESS) 0.5 mg tab tablet TAKE ONE TABLET BY MOUTH EVERY MORNING AND TAKE 2 TABLETS EVERY EVENING. 12 HOURS APART. blood sugar diagnostic (ONETOUCH VERIO TEST STRIPS) test strip testing 6 times daily DX E11.9 Insulin NO pravastatin (PRAVACHOL) 40 mg tablet Take 1 tablet by mouth daily at bedtime. amLODIPine (NORVASC) 5 mg tablet Take 1 tablet by mouth once daily. glimepiride (AMARYL) 1 mg tablet Please take 0.5 to 1 pills at lunch daily depending on the pre lunch sugars. predniSONE (DELTASONE) 5 mg tablet TAKE ONE TABLET BY MOUTH EVERY DAY Blood-Glucose Meter monitoring kit Glucose Meter Kit (choose brand covered by insurance)- Dx: Type 2 DM - Controlled E11.9 tacrolimus IR (PROGRAF) 1 mg capsule TAKE ONE CAPSULE BY MOUTH EVERY MORNING AND TAKE ONE CAPSULE BY MOUTH EVERY EVENING (12 HOURS APART) levothyroxine (LEVOXYL) 50 mcg tablet Take 1 tablet by mouth once daily. Take on empty stomach. ForThyroid loratadine (ALLERGY RELIEF, LORATADINE,) 10 mg tablet Take 1 tablet by mouth once daily. Lancets lancets Test blood sugar(s) 6 times daily. Dx: Type 2 DM - Controlled E11.9 Insulin: No CPAP Initiate Auto PAP @ 5-20 cm of water with humidification. Mask (per patient preference) optional chin strap (if indicated) , filters, tubing, humidifier and lifetime supplies. ASPIRIN 81 MG TAB Take one(1) tablet daily. benzonatate (TESSALON PERLES) 100 mg capsule Take 1 capsule by mouth three times daily as needed for cough. FAMILY HISTORY Problem Relation Age of Onset Cancer Mother lung Heart Mother CHF, CAD Cervical Cancer Mother Hypertension Father other (tuberculosis) Father other (Brain aneurysm) Father Colon Cancer Brother Heart Attack Brother other (Brain aneurysm) Brother Heart Maternal Grandmother CHF Colon Cancer Maternal Grandfather Heart Maternal Aunt [place], CHF,Pacemaker Ischemic Heart Disease Paternal Uncle Heart Other Stents placed due to [place] Colon Cancer Maternal cousin Social History Tobacco Use Smoking status: Never Smoker Smokeless tobacco: Never Used Vaping Use Vaping Use: Never used Substance Use Topics Alcohol use: No Drug use: No Review of Systems Constitutional: Positive for chills. Negative for fatigue, fever and weight loss. HENT: Positive for congestion, rhinorrhea and sore throat. Negative for ear discharge, ear pain, sinus pressure and sinus pain. Eyes: Negative for pain, discharge, redness and itching. Respiratory: Positive for cough. Negative for apnea, choking, chest tightness, shortness of breath and wheezing. Cardiovascular: Negative for chest pain, palpitations and leg swelling. Gastrointestinal: Negative for abdominal pain, diarrhea, nausea and vomiting. Musculoskeletal: Positive for myalgias. Negative for arthralgias, back pain and gait problem. Skin: Negative for color change, pallor, rash and wound. Allergic/Immunologic: Negative for environmental allergies, food allergies and immunocompromised state. Neurological: Positive for headaches. Hematological: Negative for adenopathy. Does not bruise/bleed easily. Psychiatric/Behavioral: Negative for agitation and behavioral problems. Objective BP 120/63 Pulse 90 Temp 37.1 C (98.8 F) Resp 21 Wt 53.9 kg (118 lb 12.8 oz) SpO2 99% BMI 29.57 kg/m Physical Exam Vitals and nursing note reviewed. Constitutional: General: She is not in acute distress. Appearance: Normal appearance. She is normal weight. She is not ill-appearing, toxic-appearing or diaphoretic. HENT: Head: Normocephalic and atraumatic. Right Ear: Ear canal and external ear normal. Left Ear: Ear canal and external ear normal. Nose: Nose normal. No congestion or rhinorrhea. Mouth/Throat: Mouth: Mucous membranes are moist. Pharynx: Posterior oropharyngeal erythema (posterior mild erythema. Uvual midline. Handling secretions) present. No oropharyngeal exudate. Eyes: General: Right eye: No discharge. Left eye: No discharge. Extraocular Movements: Extraocular movements intact. Conjunctiva/sclera: Conjunctivae normal. Pupils: Pupils are equal, round, and reactive to light. Cardiovascular: Rate and Rhythm: Normal rate and regular rhythm. Pulses: Normal pulses. Heart sounds: Normal heart sounds. No murmur heard. No friction rub. Pulmonary: Effort: Pulmonary effort is normal. No respiratory distress. Breath sounds: Normal breath sounds. No stridor. No wheezing, rhonchi or rales. Chest: Chest wall: No tenderness. Abdominal: General: Abdomen is flat. There is no distension. Palpations: Abdomen is soft. There is no mass. Tenderness: There is no abdominal tenderness. There is no right CVA tenderness, left CVA tenderness, guarding or rebound. Hernia: No hernia is present. Musculoskeletal: General: No swelling, tenderness, deformity or signs of injury. Normal range of motion. Cervical back: Normal range of motion and neck supple. No rigidity. Right lower leg: No edema. Left lower leg: No edema. Lymphadenopathy: Cervical: No cervical adenopathy. Skin: General: Skin is warm and dry. Capillary Refill: Capillary refill takes less than 2 seconds. Coloration: Skin is not jaundiced or pale. Findings: No bruising, erythema, lesion or rash. Neurological: General: No focal deficit present. Mental Status: She is alert and oriented to person, place, and time. Cranial Nerves: No cranial nerve deficit. Sensory: No sensory deficit. Motor: No weakness. Coordination: Coordination normal. Gait: Gait normal. Psychiatric: Mood and Affect: Mood normal. Behavior: Behavior normal. Thought Content: Thought content normal. Judgment: Judgment normal. Assessment and Plan ASSESSMENT/PLAN: 1. Acute cough - ICD9: 786.2, ICD10: R05.1 (primary diagnosis) X 4 days No red flags - XR CHEST 2V FRONTAL/LAT-negative for acute process RX Tessalon Perles - COVID WITH FLUA+B, ROUTINE-obtained and pending. Supportive measures Follow up with PCP 2. URI, acute - ICD9: 465.9, ICD10: J06.9 - Discussed viral etiology and rationale for treatment. - Symptomatic treatment with prn analgesia - Supportive care with fluids and rest - The patient may also use OTC cough and cold meds as needed, warm salt water gargles, throat lozenges and/or OTC throat spray as needed and nasal saline gtts and suction prn. - Follow up in 3-5 days if symptoms persist or sooner if worsening of symptoms Irais Murphy APRN.VETERINARY TECHNICIAN ASSISTANT documented in this encounterWayne Hospital07-07-2022 Miscellaneous Notes* Telephone Encounter - Breanne Mario Ma - 03/18/2022 2:21 PM EDT Left detailed message on [employer]. * Telephone Encounter - Breanne Mario Ma - 03/18/2022 2:19 PM EDT ----- Message from Tameka Guzmán MD sent at 03/18/2022 1:07 PM EDT ----- Hba1c is 6.4 Just fyi, it is over all well controlled Regards, Tameka Guzmán MD documented in this encounterWayne Hospital07-01-2022 History of Present illness Narrative* Tameka Guzmán MD - 03/12/2022 4:09 PM EDT AMBULATORY TELEPHONE VISIT Eileen Duran has consented to this telephone encounter. Persons Present: patient Chief Complaint/Reason: here for follow up of chronic conditions HPI: She continues the prednisone, everolimus and tacrolimus for the transplant rejection Diabetes Mellitus: seems fairly controlled, on metformin and amaryl 1 mg She does not have any side effects from this medication. Does not check her sugars. Needs an hba1c Hypothyroidism. She is doing well on her current dose of Synthroid. Denies fatigue, cold intolerance and swelling in feet. TSH recently checked and normal. T3 (ng/dL) Date Value 06/06/2020 80 No results found for: T4 No results found for: [id number] TSH (uU/mL) Date Value 09/07/2021 1.870 Data Reviewed: Most recent labs and imaging results. Most recent labs Assessment: (E11.9) Type 2 diabetes mellitus without complication, without long-term current use of insulin (HCC) (primary encounter diagnosis) (E03.9) Acquired hypothyroidism (T86.11) Kidney transplant rejection Plan: Check levels for Diabetes Mellitus and thyroid Cont all other medications Total Time Spent: 15 minutes Tameka Guzmán MD documented in this encounterWayne Hospital07-01-2022 Miscellaneous Notes* Telephone Encounter - Masha Gonzalez RN - 03/12/2022 4:04 PM EDT Pt called in and reports she isn't able to log onto her VV. States something with her camera. Providers nurse is going to give her a call. documented in this encounterWayne Hospital06-28-2022 History of Present illness Narrative* Patience Velázquez MA - 03/09/2022 10:10 AM EDT POPULATION HEALTH NAVIGATION OUTREACH Action/ALY Spoke with patient and scheduled mammogram w/ salome on . Patient will see PCP on 03/12 and prefers to wait for her to order her A1C with other labs. Patient will see Dr. Uribe outside [facility] provider on 04/23/22. Pt identified by name and : YES, via phone Outreach Outcome/Action Spoke to patient or caregiver: Patient scheduled Did you use a PCP flex slot to schedule this appointment? N/A Reason for Outreach Care Gap or Scheduling/Wellness visits Payer: Payor: [employer] AND [employer] / Plan: [employer] HMO / Product Type: HMO / Care Gap Reviewed:: Breast Cancer screening Diabetic Eye Exam HBA1C Reminder: Reminder note to check Health Maintenance for items below Health Maintenance items due: HEPATITIS A(1 of 2 - Risk 2-dose series) Never done BP CONTROLLED (<130/80) Never done DEPRESSION SCREENING due on 01/16/2022 COVID-19 VACCINE(5 - Booster for Moderna series) due on 03/06/2022 HBA1C due on 03/08/2022 Message Sent to Practice: No Navigation Signature: Patience Velázquez MA March 09, 2022 11:16 AM documented in [facility] encounter[facility] History of Present illness Narrative* Katerina Manriquez APRN.JESUS - 02/17/2022 1:00 PM EDT VIRTUAL VISIT FOLLOW UP I had a virtual visit with Ms. Duran today for follow up of GERD symptoms. UPDATED HISTORY: Patient presents today follow up GERD symptoms was last seen 12/01/2021. She reports since being omeprazole 40mg She reports the only thing she notice is soreness in epigastric abdomen when her cat is laying on her stomach. She reports she is taking fiber capsule 3 in the morning and 3 in the evening. She sometimes she has bloating and gas and take GAS-x as needed. PAST MEDICAL HISTORY Diagnosis Date Amenorrhea, primary due to hormone deficiency Arthritis Blind left eye ambylopia Carpal tunnel syndrome Chronic renal insufficiency congenital atrophy left kidney CKD (chronic kidney disease) Diabetes mellitus, type 2 (HCC) 2011 Environmental allergies GERD (gastroesophageal reflux disease) Gout Growth hormone deficiency (HCC) Hearing loss bilateral, right TM scars Hiatal hernia Hyperlipidemia Hypertension Multiple thyroid nodules Nonspecific (abnormal) findings on radiological and other examination of genitourinary organs congenital atrophy left kidney DANIEL (obstructive sleep apnea) DME [employer] for [employer] Pituitary dwarfism (HCC) Type II or unspecified type diabetes mellitus without mention of complication, not stated as uncontrolled Unspecified hypothyroidism Vertigo, peripheral PAST SURGICAL HISTORY Procedure Laterality Date ABDOMINAL SURGERY HX APPENDECTOMY APPENDECTOMY HX CATARACT SURGERY, COMPLEX 01/11/2018 CHOLECYSTOSTOMY PRQ W/IMAGING & CATHETER PLMT 2004 cholecystectomy COLONOSCOPY 11/19/2021 repeat in 5 years COLONOSCOPY FLX DX W/COLLJ SPEC WHEN PFRMD 11/03/2012 Colonoscopy COLONOSCOPY FLX DX W/COLLJ SPEC WHEN PFRMD 02/20/2016 Colonoscopy COLONOSCOPY FLX DX W/COLLJ SPEC WHEN PFRMD 02/23/2019 Colonoscopy EGD W/O BRSH SPEC VARICIES INJ 11/19/2021 ESOPHAGOGASTRODUODENOSCOPY TRANSORAL DIAGNOSTIC 11/03/2012 EGD EYE SURGERY HX Bilateral cataract KIDNEY TRANSPLANT HX MYRINGOTOMY ASPIR&/EUSTACHIAN TUBE NFLTJ ANES Myringotomy/tubes NEUROPLASTY &/TRANSPOS MEDIAN NRV CARPAL TUNNE 08/25/2012 Carpal tunnel decomp NEUROPLASTY &/TRANSPOS MEDIAN NRV CARPAL TUNNE 09/14/2013 CTR left hand RENAL ALLOTRANSPLANTATION W/ GRAFT W/O RECIPIENT NEPHRECTOMY Right 09/24/2019 Kidney transplant TONSILLECTOMY HX FAMILY HISTORY Problem Relation Age of Onset Cancer Mother lung Heart Mother CHF, CAD Cervical Cancer Mother Hypertension Father other (tuberculosis) Father other (Brain aneurysm) Father Colon Cancer Brother Heart Attack Brother other (Brain aneurysm) Brother Heart Maternal Grandmother CHF Colon Cancer Maternal Grandfather Heart Maternal Aunt [place], CHF,Pacemaker Ischemic Heart Disease Paternal Uncle Heart Other Stents placed due to [place] Colon Cancer Maternal cousin Social History Tobacco Use Smoking status: Never Smoker Smokeless tobacco: Never Used Vaping Use Vaping Use: Never used Substance Use Topics Alcohol use: No Drug use: No Current Outpatient Medications Medication Sig Dispense Refill pantoprazole DR (PROTONIX) 40 mg tablet Take 1 tablet by mouth once daily. 90 tablet 1 metFORMIN (GLUCOPHAGE) 500 mg tablet Take 1 tablet by mouth daily with breakfast. 30 tablet 5 everolimus, immunosuppressive, (ZORTRESS) 0.5 mg tab tablet TAKE ONE TABLET BY MOUTH EVERY MORNING AND TAKE 2 TABLETS EVERY EVENING. 12 HOURS APART. 270 tablet 3 blood sugar diagnostic (ONETOUCH VERIO TEST STRIPS) test strip testing 6 times daily DX E11.9 Insulin NO 200 Strip 5 pravastatin (PRAVACHOL) 40 mg tablet Take 1 tablet by mouth daily at bedtime. 90 tablet 1 amLODIPine (NORVASC) 5 mg tablet Take 1 tablet by mouth once daily. 90 tablet 1 glimepiride (AMARYL) 1 mg tablet Please take 0.5 to 1 pills at lunch daily depending on the pre lunch sugars. 30 tablet 11 predniSONE (DELTASONE) 5 mg tablet TAKE ONE TABLET BY MOUTH EVERY DAY 90 tablet 3 Blood-Glucose Meter monitoring kit Glucose Meter Kit (choose brand covered by insurance)- Dx: Type 2 DM - Controlled E11.9 1 Each 0 tacrolimus IR (PROGRAF) 1 mg capsule TAKE ONE CAPSULE BY MOUTH EVERY MORNING AND TAKE ONE CAPSULE BY MOUTH EVERY EVENING (12 HOURS APART) 60 capsule 11 levothyroxine (LEVOXYL) 50 mcg tablet Take 1 tablet by mouth once daily. Take on empty stomach. ForThyroid 30 tablet 11 loratadine (ALLERGY RELIEF, LORATADINE,) 10 mg tablet Take 1 tablet by mouth once daily. Lancets lancets Test blood sugar(s) 6 times daily. Dx: Type 2 DM - Controlled E11.9 Insulin: No 200Each 11 CPAP Initiate Auto PAP @ 5-20 cm of water with humidification. Mask (per patient preference) optional chin strap (if indicated) , filters, tubing, humidifier and lifetime supplies. 1 Device 0 ASPIRIN 81 MG TAB Take one(1) tablet daily. 30 11 No current facility-administered medications for this visit. ALLERGIES Allergen Reactions Dust Mites Unknown Penicillins Mental Status Change Tylenol-Codeine #3 * Hives Augmentin [Amoxicil* Mental Status Change Sulfa (Sulfonamide * Rash Cephalosporins Other: See Comments sneezing Seasonal Allergies Grass Pollen Itching PHYSICAL FINDINGS OF NOTE: General Normal, healthy, cooperative, in no acute distress Able to interact verbally by video conference Psych ORIENTATION: normal to time place, person and situation Mood/Affect: AFFECT AND MOOD: Normal Head/Neuro Normal size and shape Facial appearance normal Pulmonary respiratory effort normal Abdominal Not performed Skin abnormal lesions not visualized Motor patient seen sitting with Normal appearing strength and coordination IMPRESSION (K21.9) Gastroesophageal reflux disease without esophagitis (primary encounter diagnosis) Assessment/Plan (K21.9) Gastroesophageal reflux disease without esophagitis (primary encounter diagnosis) 1. Gastroesophageal reflux disease without esophagitis Patient doing well on pantoprazole 40 mg once daily. She reports symptoms for the most part have resolved and feels much better still having slight tenderness in her epigastric area. Plan will be to continue pantoprazole 40 mg once daily on empty stomach. -Continue fiber capsules take Gas-X as needed -Follow-up in 6 months Follow up in office 6 months/PRN. Recommended to please call office/go to ER if fever, chills, chest pain, SOB, diarrhea, nausea, emesis, worsening abdominal pain, dehydration occurs I spent a total of 30 minutes on the date of the service which included preparing to see the patient, [id number] patient care, completing clinical documentation, obtaining and/or reviewing separately obtained history, performing a medically appropriate examination, counseling and educating the pat ient/family/caregiver, ordering medications, tests, or procedures, communicating with other HCPs (not separately reported), independently interpreting results (not separately reported), communicatingresults to the patient/family/caregiver, and care coordination (not separately reported). Katerina Manriquez APRN.JESUS documented in this encounterWay[facility]06-07-[facility]22 Miscellaneous Notes* Telephone Encounter - Heber Sullivan RN - 02/16/2022 2:50 PM EDT Call placed to patient RE low vitamin D level of 17.1. Patient previously given Ergo 50,000 international unit(s) once weekly. Discussed with Dr. Guerrero who advised to have patient take medication again with same plan of one capsule per week for 12 weeks. Patient stated local pharmacy refilled previous script so medication is on hand. Informed patient will repeat vitamin D level in 3 months to determine effectiveness. Patient stated understanding. Heber Sullivan RN documented in this encounterWayne [facility]05-09-2022 Miscellaneous Notes* Telephone Encounter - Loyda Valverde LPN - 01/18/2022 2:52 PM EDT The following approved medication requests have been transmitted electronically. Signed Prescriptions Disp Refills metFORMIN (GLUCOPHAGE) 500 mg tablet 30 tablet 5 Sig: Take 1 tablet by mouth daily with breakfast. HUY: No Authorizing Provider: TAMEKA GUZMÁN LPN * Telephone Encounter - Irish Winkler LPN - 01/14/2022 3:40 PM EDT Patient has been identified by name and date of : Yes Pharmacy phones for refill(s): Pending Prescriptions Disp Refills METFORMIN 500 MG TABLET 30 tablet 5 Sig: Take 1 tablet by mouth daily with breakfast. HUY: No Date of last office visit in primary care: 09/09/21 next apt Last 2 Encounter Wt Readings: Date: Wt: 12/24/2021 53.2 kg (117 lb 3.2 oz) 10/02/2021 52.2 kg (115 lb) Previous labs/tests for medication: Diabetes: Hemoglobin A1C (%) Date Value 09/07/2021 6.0 02/14/2021 6.0 Please advise. Thank you. Irish Winkler LPN documented in this encounterWay[facility]04-06-2022 Miscellaneous Notes* Telephone Encounter - Melly Cantu RN - 12/16/2021 1:39 PM EDT Patient has been identified by name and date of : Yes Pharmacy phones for refill(s): Pending Prescriptions Disp Refills ONETOUCH VERIO TEST STRIPS 200 Strip 5 Sig: testing 6 times daily DX E11.9 Insulin NO HUY: No Date of last office visit in primary care: 09/09/2021 Last 2 Encounter Wt Readings: Date: Wt: 10/02/2021 52.2 kg (115 lb) 09/09/2021 51.3 kg (113 lb) Previous labs/tests for medication: Diabetes: Hemoglobin A1C (%) Date Value 09/07/2021 6.0 02/14/2021 6.0 Please advise. Thank you. Melly Cantu RN documented in this encounterWay[facility]06-10-2016 History of Past illness Narrative* Problem Noted Date Resolved Date Colon cancer screening 02/20/2016 1 Controlled type 2 diabetes m elias with stage 4 chronic kidney disease, without long-term current use of insulin 07/03/2015 03/28/2020 Vitamin D deficiency 12/27/2014 03/28/2020 Last Assessment & Plan: Vit d levels are good, she is taking her meds like she should. MAXIMO (acute kidney injury) 11/08/20142019 Prediabetes 05/16/2014 03/28/2020 Overview: Dx: 2002, Currently well controlled. She is legally blind in the left eye, related to issues. Last Assessment & Plan: Last test was in the non diabetic range. 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 Hypoplastic C1 Diabetes mellitus, type 2 2018 Overview: Dx 2011. +Albuminuria Last Assessment & Plan: Diet controlled, Fasting usually run in the 79 range and after it is 115. Not on any medication. documented as of this encounter (statuses as of 12/16/2021) [facility] of Past illness Narrative* Problem Noted Date Resolved Date Colon cancer screening 02/20/2016 1 Controlled type 2 diabetes m ellitus with stage 4 chronic kidney disease, without long-term current use of insulin 07/03/2015 03/28/2020 Vitamin D deficiency 12/27/2014 03/28/2020 Last Assessment & Plan: Vit d levels are good, she is taking her meds like she should. MAXIMO (acute kidney injury) 11/08/20142019 Prediabetes 05/16/2014 03/28/2020 Overview: Dx: 2002, Currently well controlled. She is legally blind in the left eye, related to issues. Last Assessment & Plan: Last test was in the non diabetic range. 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 Hypoplastic C1 Diabetes mellitus, type 2 2018 Overview: Dx 2011. +Albuminuria Last Assessment & Plan: Diet controlled, Fasting usually run in the 79 range and after it is 115. Not on any medication. documented as of this encounter (statuses as of 01/18/2022) [facility] of Past illness Narrative* Problem Noted Date Resolved Date Colon cancer screening 02/20/2016 1 Controlled type 2 diabetes m elias with stage 4 chronic kidney disease, without long-term current use of insulin 07/03/2015 03/28/2020 Vitamin D deficiency 12/27/2014 03/28/2020 Last Assessment & Plan: Vit d levels are good, she is taking her meds like she should. MAXIMO (acute kidney injury) 11/08/20142019 Prediabetes 05/16/2014 03/28/2020 Overview: Dx: 2002, Currently well controlled. She is legally blind in the left eye, related to issues. Last Assessment & Plan: Last test was in the non diabetic range. 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 Hypoplastic C1 Diabetes mellitus, type 2 2018 Overview: Dx 2011. +Albuminuria Last Assessment & Plan: Diet controlled, Fasting usually run in the 79 range and after it is 115. Not on any medication. documented as of this encounter (statuses as of 02/16/2022) [facility] illness Narrative* Problem Noted Date Resolved Date Colon cancer screening 02/20/2016 1 Controlled type 2 diabetes m elias with stage 4 chronic kidney disease, without long-term current use of insulin 07/03/2015 03/28/2020 Vitamin D deficiency 12/27/2014 03/28/2020 Last Assessment & Plan: Vit d levels are good, she is taking her meds like she should. MAXIMO (acute kidney injury) 11/08/20142019 Prediabetes 05/16/2014 03/28/2020 Overview: Dx: 2002, Currently well controlled. She is legally blind in the left eye, related to issues. Last Assessment & Plan: Last test was in the non diabetic range. 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 Hypoplastic C1 Diabetes mellitus, type 2 2018 Overview: Dx 2011. +Albuminuria Last Assessment & Plan: Diet controlled, Fasting usually run in the 79 range and after it is 115. Not on any medication. documented as of this encounter (statuses as of 02/17/2022) [facility] illness Narrative* Problem Noted Date Resolved Date Colon cancer screening 02/20/2016 1 Controlled type 2 diabetes m elias with stage 4 chronic kidney disease, without long-term current use of insulin 07/03/2015 03/28/2020 Vitamin D deficiency 12/27/2014 03/28/2020 Last Assessment & Plan: Vit d levels are good, she is taking her meds like she should. MAXIMO (acute kidney injury) 11/08/20142019 Prediabetes 05/16/2014 03/28/2020 Overview: Dx: 2002, Currently well controlled. She is legally blind in the left eye, related to issues. Last Assessment & Plan: Last test was in the non diabetic range. 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 Hypoplastic C1 Diabetes mellitus, type 2 2018 Overview: Dx 2011. +Albuminuria Last Assessment & Plan: Diet controlled, Fasting usually run in the 79 range and after it is 115. Not on any medication. documented as of this encounter (statuses as of 03/09/2022) [facility] illness Narrative* Problem Noted Date Resolved Date Colon cancer screening 02/20/2016 1 Controlled type 2 diabetes m elias with stage 4 chronic kidney disease, without long-term current use of insulin 07/03/2015 03/28/2020 Vitamin D deficiency 12/27/2014 03/28/2020 Last Assessment & Plan: Vit d levels are good, she is taking her meds like she should. MAXIMO (acute kidney injury) 11/08/20142019 Prediabetes 05/16/2014 03/28/2020 Overview: Dx: 2002, Currently well controlled. She is legally blind in the left eye, related to issues. Last Assessment & Plan: Last test was in the non diabetic range. 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 Hypoplastic C1 Diabetes mellitus, type 2 2018 Overview: Dx 2011. +Albuminuria Last Assessment & Plan: Diet controlled, Fasting usually run in the 79 range and after it is 115. Not on any medication. documented as of this encounter (statuses as of 03/12/2022) [facility] Narrative* Problem Noted Date Resolved Date Colon cancer screening 02/20/2016 1 Controlled type 2 diabetes m elias with stage 4 chronic kidney disease, without long-term current use of insulin 07/03/2015 03/28/2020 Vitamin D deficiency 12/27/2014 03/28/2020 Last Assessment & Plan: Vit d levels are good, she is taking her meds like she should. MAXIMO (acute kidney injury) 11/08/20142019 Prediabetes 05/16/2014 03/28/2020 Overview: Dx: 2002, Currently well controlled. She is legally blind in the left eye, related to issues. Last Assessment & Plan: Last test was in the non diabetic range. 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 Hypoplastic C1 Diabetes mellitus, type 2 2018 Overview: Dx 2011. +Albuminuria Last Assessment & Plan: Diet controlled, Fasting usually run in the 79 range and after it is 115. Not on any medication. documented as of this encounter (statuses as of 03/12/2022) [facility] illness Narrative* Problem Noted Date Resolved Date Colon cancer screening 02/20/2016 1 Controlled type 2 diabetes m elias with stage 4 chronic kidney disease, without long-term current use of insulin 07/03/2015 03/28/2020 Vitamin D deficiency 12/27/2014 03/28/2020 Last Assessment & Plan: Vit d levels are good, she is taking her meds like she should. MAXIMO (acute kidney injury) 11/08/20142019 Prediabetes 05/16/2014 03/28/2020 Overview: Dx: 2002, Currently well controlled. She is legally blind in the left eye, related to issues. Last Assessment & Plan: Last test was in the non diabetic range. 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 Hypoplastic C1 Diabetes mellitus, type 2 2018 Overview: Dx 2011. +Albuminuria Last Assessment & Plan: Diet controlled, Fasting usually run in the 79 range and after it is 115. Not on any medication. documented as of this encounter (statuses as of 03/18/2022) [facility] Narrative* Problem Noted Date Resolved Date Colon cancer screening 02/20/2016 1 Controlled type 2 diabetes m elias with stage 4 chronic kidney disease, without long-term current use of insulin 07/03/2015 03/28/2020 Vitamin D deficiency 12/27/2014 03/28/2020 Last Assessment & Plan: Vit d levels are good, she is taking her meds like she should. MAXIMO (acute kidney injury) 11/08/20142019 Prediabetes 05/16/2014 03/28/2020 Overview: Dx: 2002, Currently well controlled. She is legally blind in the left eye, related to issues. Last Assessment & Plan: Last test was in the non diabetic range. 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 Hypoplastic C1 Diabetes mellitus, type 2 2018 Overview: Dx 2011. +Albuminuria Last Assessment & Plan: Diet controlled, Fasting usually run in the 79 range and after it is 115. Not on any medication. documented as of this encounter (statuses as of 03/19/2022) [facility] Narrative* Problem Noted Date Resolved Date Colon cancer screening 02/20/2016 1 Controlled type 2 diabetes m elias with stage 4 chronic kidney disease, without long-term current use of insulin 07/03/2015 03/28/2020 Vitamin D deficiency 12/27/2014 03/28/2020 Last Assessment & Plan: Vit d levels are good, she is taking her meds like she should. MAXIMO (acute kidney injury) 11/08/20142019 Prediabetes 05/16/2014 03/28/2020 Overview: Dx: 2002, Currently well controlled. She is legally blind in the left eye, related to issues. Last Assessment & Plan: Last test was in the non diabetic range. 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 Hypoplastic C1 Diabetes mellitus, type 2 2018 Overview: Dx 2011. +Albuminuria Last Assessment & Plan: Diet controlled, Fasting usually run in the 79 range and after it is 115. Not on any medication. documented as of this encounter (statuses as of 04/08/2022) [facility] History of Past illness Narrative* Problem Noted Date Resolved Date Colon cancer screening 02/20/2016 1 Controlled type 2 diabetes m elias with stage 4 chronic kidney disease, without long-term current use of insulin 07/03/2015 03/28/2020 Vitamin D deficiency 12/27/2014 03/28/2020 Last Assessment & Plan: Vit d levels are good, she is taking her meds like she should. MAXIMO (acute kidney injury) 11/08/20142019 Prediabetes 05/16/2014 03/28/2020 Overview: Dx: 2002, Currently well controlled. She is legally blind in the left eye, related to issues. Last Assessment & Plan: Last test was in the non diabetic range. 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 Hypoplastic C1 Diabetes mellitus, type 2 2018 Overview: Dx 2011. +Albuminuria Last Assessment & Plan: Diet controlled, Fasting usually run in the 79 range and after it is 115. Not on any medication. documented as of this encounter (statuses as of 04/09/2022) [facility] History of Past illness Narrative* Problem Noted Date Resolved Date Colon cancer screening 02/20/2016 1 Controlled type 2 diabetes m elias with stage 4 chronic kidney disease, without long-term current use of insulin 07/03/2015 03/28/2020 Vitamin D deficiency 12/27/2014 03/28/2020 Last Assessment & Plan: Vit d levels are good, she is taking her meds like she should. MAXIMO (acute kidney injury) 11/08/20142019 Prediabetes 05/16/2014 03/28/2020 Overview: Dx: 2002, Currently well controlled. She is legally blind in the left eye, related to issues. Last Assessment & Plan: Last test was in the non diabetic range. 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 Hypoplastic C1 Diabetes mellitus, type 2 2018 Overview: Dx 2011. +Albuminuria Last Assessment & Plan: Diet controlled, Fasting usually run in the 79 range and after it is 115. Not on any medication. documented as of this encounter (statuses as of 04/30/2022) [facility] History of Past illness Narrative* Problem Noted Date Resolved Date Colon cancer screening 02/20/2016 1 Controlled type 2 diabetes m elias with stage 4 chronic kidney disease, without long-term current use of insulin 07/03/2015 03/28/2020 Vitamin D deficiency 12/27/2014 03/28/2020 Last Assessment & Plan: Vit d levels are good, she is taking her meds like she should. MAXIMO (acute kidney injury) 11/08/20142019 Prediabetes 05/16/2014 03/28/2020 Overview: Dx: 2002, Currently well controlled. She is legally blind in the left eye, related to issues. Last Assessment & Plan: Last test was in the non diabetic range. 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 Hypoplastic C1 Diabetes mellitus, type 2 2018 Overview: Dx 2011. +Albuminuria Last Assessment & Plan: Diet controlled, Fasting usually run in the 79 range and after it is 115. Not on any medication. documented as of this encounter (statuses as of 05/03/2022) [facility] History of Past illness Narrative* Problem Noted Date Resolved Date Colon cancer screening 02/20/2016 1 Controlled type 2 diabetes m elias with stage 4 chronic kidney disease, without long-term current use of insulin 07/03/2015 03/28/2020 Vitamin D deficiency 12/27/2014 03/28/2020 Last Assessment & Plan: Vit d levels are good, she is taking her meds like she should. MAXIMO (acute kidney injury) 11/08/20142019 Prediabetes 05/16/2014 03/28/2020 Overview: Dx: 2002, Currently well controlled. She is legally blind in the left eye, related to issues. Last Assessment & Plan: Last test was in the non diabetic range. 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 Hypoplastic C1 Diabetes mellitus, type 2 2018 Overview: Dx 2011. +Albuminuria Last Assessment & Plan: Diet controlled, Fasting usually run in the 79 range and after it is 115. Not on any medication. documented as of this encounter (statuses as of 05/19/2022) [facility] History of Past illness Narrative* Problem Noted Date Resolved Date Colon cancer screening 02/20/2016 1 Controlled type 2 diabetes m elias with stage 4 chronic kidney disease, without long-term current use of insulin 07/03/2015 03/28/2020 Vitamin D deficiency 12/27/2014 03/28/2020 Last Assessment & Plan: Vit d levels are good, she is taking her meds like she should. MAXIMO (acute kidney injury) 11/08/20142019 Prediabetes 05/16/2014 03/28/2020 Overview: Dx: 2002, Currently well controlled. She is legally blind in the left eye, related to issues. Last Assessment & Plan: Last test was in the non diabetic range. 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 Hypoplastic C1 Diabetes mellitus, type 2 2018 Overview: Dx 2011. +Albuminuria Last Assessment & Plan: Diet controlled, Fasting usually run in the 79 range and after it is 115. Not on any medication. documented as of this encounter (statuses as of 05/28/2022) [facility] History of Past illness Narrative* Problem Noted Date Resolved Date Colon cancer screening 02/20/2016 1 Controlled type 2 diabetes m ellitus with stage 4 chronic kidney disease, without long-term current use of insulin 07/03/2015 03/28/2020 Vitamin D deficiency 12/27/2014 03/28/2020 Last Assessment & Plan: Vit d levels are good, she is taking her meds like she should. MAXIMO (acute kidney injury) 11/08/20142019 Prediabetes 05/16/2014 03/28/2020 Overview: Dx: 2002, Currently well controlled. She is legally blind in the left eye, related to issues. Last Assessment & Plan: Last test was in the non diabetic range. 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 Hypoplastic C1 Diabetes mellitus, type 2 2018 Overview: Dx 2011. +Albuminuria Last Assessment & Plan: Diet controlled, Fasting usually run in the 79 range and after it is 115. Not on any medication. documented as of this encounter (statuses as of 06/07/2022) [facility] History of Past illness Narrative* Problem Noted Date Resolved Date Colon cancer screening 02/20/2016 1 Controlled type 2 diabetes m ellitus with stage 4 chronic kidney disease, without long-term current use of insulin 07/03/2015 03/28/2020 Vitamin D deficiency 12/27/2014 03/28/2020 Last Assessment & Plan: Vit d levels are good, she is taking her meds like she should. MAXIMO (acute kidney injury) 11/08/20142019 Prediabetes 05/16/2014 03/28/2020 Overview: Dx: 2002, Currently well controlled. She is legally blind in the left eye, related to issues. Last Assessment & Plan: Last test was in the non diabetic range. 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 Hypoplastic C1 Diabetes mellitus, type 2 2018 Overview: Dx 2011. +Albuminuria Last Assessment & Plan: Diet controlled, Fasting usually run in the 79 range and after it is 115. Not on any medication. documented as of this encounter (statuses as of 06/25/2022) [facility] History of Past illness Narrative* Problem Noted Date Resolved Date Colon cancer screening 02/20/2016 1 Controlled type 2 diabetes m elias with stage 4 chronic kidney disease, without long-term current use of insulin 07/03/2015 03/28/2020 Vitamin D deficiency 12/27/2014 03/28/2020 Last Assessment & Plan: Vit d levels are good, she is taking her meds like she should. MAXIMO (acute kidney injury) 11/08/20142019 Prediabetes 05/16/2014 03/28/2020 Overview: Dx: 2002, Currently well controlled. She is legally blind in the left eye, related to issues. Last Assessment & Plan: Last test was in the non diabetic range. 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 Hypoplastic C1 Diabetes mellitus, type 2 2018 Overview: Dx 2011. +Albuminuria Last Assessment & Plan: Diet controlled, Fasting usually run in the 79 range and after it is 115. Not on any medication. documented as of this encounter (statuses as of 06/29/2022) [facility] History of Past illness Narrative* Problem Noted Date Resolved Date Colon cancer screening 02/20/2016 1 Controlled type 2 diabetes regulo griffin with stage 4 chronic kidney disease, without long-term current use of insulin 07/03/2015 03/28/2020 Vitamin D deficiency 12/27/2014 03/28/2020 Last Assessment & Plan: Vit d levels are good, she is taking her meds like she should. MAXIMO (acute kidney injury) 11/08/20142019 Prediabetes 05/16/2014 03/28/2020 Overview: Dx: 2002, Currently well controlled. She is legally blind in the left eye, related to issues. Last Assessment & Plan: Last test was in the non diabetic range. 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 Hypoplastic C1 Diabetes mellitus, type 2 2018 Overview: Dx 2011. +Albuminuria Last Assessment & Plan: Diet controlled, Fasting usually run in the 79 range and after it is 115. Not on any medication. documented as of this encounter (statuses as of 07/09/2022) [facility] History of Past illness Narrative* Problem Noted Date Resolved Date Colon cancer screening 02/20/2016 1 Controlled type 2 diabetes regulo griffin with stage 4 chronic kidney disease, without long-term current use of insulin 07/03/2015 03/28/2020 Vitamin D deficiency 12/27/2014 03/28/2020 Last Assessment & Plan: Vit d levels are good, she is taking her meds like she should. MAXIMO (acute kidney injury) 11/08/20142019 Prediabetes 05/16/2014 03/28/2020 Overview: Dx: 2002, Currently well controlled. She is legally blind in the left eye, related to issues. Last Assessment & Plan: Last test was in the non diabetic range. 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 Hypoplastic C1 Diabetes mellitus, type 2 2018 Overview: Dx 2011. +Albuminuria Last Assessment & Plan: Diet controlled, Fasting usually run in the 79 range and after it is 115. Not on any medication. documented as of this encounter (statuses as of 07/17/2022) [facility] History of Past illness Narrative* Problem Noted Date Resolved Date Colon cancer screening 02/20/2016 1 Controlled type 2 diabetes m elias with stage 4 chronic kidney disease, without long-term current use of insulin 07/03/2015 03/28/2020 Vitamin D deficiency 12/27/2014 03/28/2020 Last Assessment & Plan: Vit d levels are good, she is taking her meds like she should. MAXIMO (acute kidney injury) 11/08/20142019 Prediabetes 05/16/2014 03/28/2020 Overview: Dx: 2002, Currently well controlled. She is legally blind in the left eye, related to issues. Last Assessment & Plan: Last test was in the non diabetic range. 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 Hypoplastic C1 Diabetes mellitus, type 2 2018 Overview: Dx 2011. +Albuminuria Last Assessment & Plan: Diet controlled, Fasting usually run in the 79 range and after it is 115. Not on any medication. documented as of this encounter (statuses as of 08/06/2022) [facility] History of Past illness Narrative* Problem Noted Date Resolved Date Colon cancer screening 02/20/2016 1 Controlled type 2 diabetes m elias with stage 4 chronic kidney disease, without long-term current use of insulin 07/03/2015 03/28/2020 Vitamin D deficiency 12/27/2014 03/28/2020 Last Assessment & Plan: Vit d levels are good, she is taking her meds like she should. MAXIMO (acute kidney injury) 11/08/20142019 Prediabetes 05/16/2014 03/28/2020 Overview: Dx: 2002, Currently well controlled. She is legally blind in the left eye, related to issues. Last Assessment & Plan: Last test was in the non diabetic range. 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 Hypoplastic C1 Diabetes mellitus, type 2 2018 Overview: Dx 2011. +Albuminuria Last Assessment & Plan: Diet controlled, Fasting usually run in the 79 range and after it is 115. Not on any medication. documented as of this encounter (statuses as of 08/25/2022) [facility] History of Past illness Narrative* Problem Noted Date Resolved Date Colon cancer screening 02/20/2016 1 Controlled type 2 diabetes m elias with stage 4 chronic kidney disease, without long-term current use of insulin 07/03/2015 03/28/2020 Vitamin D deficiency 12/27/2014 03/28/2020 Last Assessment & Plan: Vit d levels are good, she is taking her meds like she should. MAXIMO (acute kidney injury) 11/08/20142019 Prediabetes 05/16/2014 03/28/2020 Overview: Dx: 2002, Currently well controlled. She is legally blind in the left eye, related to issues. Last Assessment & Plan: Last test was in the non diabetic range. 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 Hypoplastic C1 Diabetes mellitus, type 2 2018 Overview: Dx 2011. +Albuminuria Last Assessment & Plan: Diet controlled, Fasting usually run in the 79 range and after it is 115. Not on any medication. documented as of this encounter (statuses as of 08/25/2022) [facility] History of Past illness Narrative* Problem Noted Date Resolved Date Colon cancer screening 02/20/2016 1 Controlled type 2 diabetes m elias with stage 4 chronic kidney disease, without long-term current use of insulin 07/03/2015 03/28/2020 Vitamin D deficiency 12/27/2014 03/28/2020 Last Assessment & Plan: Vit d levels are good, she is taking her meds like she should. MAXIMO (acute kidney injury) 11/08/20142019 Prediabetes 05/16/2014 03/28/2020 Overview: Dx: 2002, Currently well controlled. She is legally blind in the left eye, related to issues. Last Assessment & Plan: Last test was in the non diabetic range. 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 Hypoplastic C1 Diabetes mellitus, type 2 2018 Overview: Dx 2011. +Albuminuria Last Assessment & Plan: Diet controlled, Fasting usually run in the 79 range and after it is 115. Not on any medication. documented as of this encounter (statuses as of 09/05/2022) [facility] History of Past illness Narrative* Problem Noted Date Resolved Date Colon cancer screening 02/20/2016 1 Controlled type 2 diabetes m ellitus with stage 4 chronic kidney disease, without long-term current use of insulin 07/03/2015 03/28/2020 Vitamin D deficiency 12/27/2014 03/28/2020 Last Assessment & Plan: Vit d levels are good, she is taking her meds like she should. MAXIMO (acute kidney injury) 11/08/20142019 Prediabetes 05/16/2014 03/28/2020 Overview: Dx: 2002, Currently well controlled. She is legally blind in the left eye, related to issues. Last Assessment & Plan: Last test was in the non diabetic range. 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 Hypoplastic C1 Diabetes mellitus, type 2 2018 Overview: Dx 2011. +Albuminuria Last Assessment & Plan: Diet controlled, Fasting usually run in the 79 range and after it is 115. Not on any medication. documented as of this encounter (statuses as of 09/18/2022) [facility] History of Past illness Narrative* Problem Noted Date Resolved Date Colon cancer screening 02/20/2016 1 Controlled type 2 diabetes m elias with stage 4 chronic kidney disease, without long-term current use of insulin 07/03/2015 03/28/2020 Vitamin D deficiency 12/27/2014 03/28/2020 Last Assessment & Plan: Vit d levels are good, she is taking her meds like she should. MAXIMO (acute kidney injury) 11/08/20142019 Prediabetes 05/16/2014 03/28/2020 Overview: Dx: 2002, Currently well controlled. She is legally blind in the left eye, related to issues. Last Assessment & Plan: Last test was in the non diabetic range. 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 Hypoplastic C1 Diabetes mellitus, type 2 2018 Overview: Dx 2012. +Albuminuria Last Assessment & Plan: Diet controlled, Fasting usually run in the 79 range and after it is 115. Not on any medication. documented as of this encounter (statuses as of 10/20/2022) [facility] History of Past illness Narrative* Problem Noted Date Resolved Date Colon cancer screening 02/20/2016 1 Controlled type 2 diabetes m elias with stage 4 chronic kidney disease, without long-term current use of insulin 07/03/2015 03/28/2020 Vitamin D deficiency 12/27/2014 03/28/2020 Last Assessment & Plan: Vit d levels are good, she is taking her meds like she should. MAXIMO (acute kidney injury) 11/08/20142019 Prediabetes 05/16/2014 03/28/2020 Overview: Dx: 2002, Currently well controlled. She is legally blind in the left eye, related to issues. Last Assessment & Plan: Last test was in the non diabetic range. 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 Hypoplastic C1 Diabetes mellitus, type 2 2018 Overview: Dx 2012. +Albuminuria Last Assessment & Plan: Diet controlled, Fasting usually run in the 79 range and after it is 115. Not on any medication. documented as of this encounter (statuses as of 10/28/2022) [facility] History of Past illness Narrative* Problem Noted Date Resolved Date Colon cancer screening 02/20/2016 1 Controlled type 2 diabetes m elias with stage 4 chronic kidney disease, without long-term current use of insulin 07/03/2015 03/28/2020 Vitamin D deficiency 12/27/2014 03/28/2020 Last Assessment & Plan: Vit d levels are good, she is taking her meds like she should. MAXIMO (acute kidney injury) 11/08/20142019 Prediabetes 05/16/2014 03/28/2020 Overview: Dx: 2002, Currently well controlled. She is legally blind in the left eye, related to issues. Last Assessment & Plan: Last test was in the non diabetic range. 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 Hypoplastic C1 Diabetes mellitus, type 2 2018 Overview: Dx 2011. +Albuminuria Last Assessment & Plan: Diet controlled, Fasting usually run in the 79 range and after it is 115. Not on any medication. documented as of this encounter (statuses as of 11/09/2022) [facility] History of Past illness Narrative* Problem Noted Date Resolved Date Colon cancer screening 02/20/2016 1 Controlled type 2 diabetes m elias with stage 4 chronic kidney disease, without long-term current use of insulin 07/03/2015 03/28/2020 Vitamin D deficiency 12/27/2014 03/28/2020 Last Assessment & Plan: Vit d levels are good, she is taking her meds like she should. MAXIMO (acute kidney injury) 11/08/20142019 Prediabetes 05/16/2014 03/28/2020 Overview: Dx: 2002, Currently well controlled. She is legally blind in the left eye, related to issues. Last Assessment & Plan: Last test was in the non diabetic range. 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 Hypoplastic C1 Diabetes mellitus, type 2 2018 Overview: Dx 2011. +Albuminuria Last Assessment & Plan: Diet controlled, Fasting usually run in the 79 range and after it is 115. Not on any medication. documented as of this encounter (statuses as of 11/23/2022) [facility] History of Past illness Narrative* Problem Noted Date Resolved Date Colon cancer screening 02/20/2016 1 Controlled type 2 diabetes m elias with stage 4 chronic kidney disease, without long-term current use of insulin 07/03/2015 03/28/2020 Vitamin D deficiency 12/27/2014 03/28/2020 Last Assessment & Plan: Vit d levels are good, she is taking her meds like she should. MAXIMO (acute kidney injury) 11/08/20142019 Prediabetes 05/16/2014 03/28/2020 Overview: Dx: 2002, Currently well controlled. She is legally blind in the left eye, related to issues. Last Assessment & Plan: Last test was in the non diabetic range. 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 Hypoplastic C1 Diabetes mellitus, type 2 2018 Overview: Dx 2011. +Albuminuria Last Assessment & Plan: Diet controlled, Fasting usually run in the 79 range and after it is 115. Not on any medication. documented as of this encounter (statuses as of 12/23/2022) [facility] History of Past illness Narrative* Problem Noted Date Resolved Date Colon cancer screening 02/20/2016 1 Controlled type 2 diabetes m elias with stage 4 chronic kidney disease, without long-term current use of insulin 07/03/2015 03/28/2020 Vitamin D deficiency 12/27/2014 03/28/2020 Last Assessment & Plan: Vit d levels are good, she is taking her meds like she should. MAXIMO (acute kidney injury) 11/08/20142019 Prediabetes 05/16/2014 03/28/2020 Overview: Dx: 2002, Currently well controlled. She is legally blind in the left eye, related to issues. Last Assessment & Plan: Last test was in the non diabetic range. 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 Hypoplastic C1 Diabetes mellitus, type 2 2018 Overview: Dx 2011. +Albuminuria Last Assessment & Plan: Diet controlled, Fasting usually run in the 79 range and after it is 115. Not on any medication. documented as of this encounter (statuses as of 01/04/2023) [facility] History of Past illness Narrative* Problem Noted Date Resolved Date Colon cancer screening 02/20/2016 1 Controlled type 2 diabetes m ellitus with stage 4 chronic kidney disease, without long-term current use of insulin 07/03/2015 03/28/2020 Vitamin D deficiency 12/27/2014 03/28/2020 Last Assessment & Plan: Vit d levels are good, she is taking her meds like she should. MAXIMO (acute kidney injury) 11/08/20142019 Prediabetes 05/16/2014 03/28/2020 Overview: Dx: 2002, Currently well controlled. She is legally blind in the left eye, related to issues. Last Assessment & Plan: Last test was in the non diabetic range. 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 Hypoplastic C1 Diabetes mellitus, type 2 2018 Overview: Dx 2011. +Albuminuria Last Assessment & Plan: Diet controlled, Fasting usually run in the 79 range and after it is 115. Not on any medication. documented as of this encounter (statuses as of 01/20/2023) [facility] History of Past illness Narrative* Problem Noted Date Resolved Date Colon cancer screening 02/20/2016 1 Controlled type 2 diabetes m ellitus with stage 4 chronic kidney disease, without long-term current use of insulin 07/03/2015 03/28/2020 Vitamin D deficiency 12/27/2014 03/28/2020 Last Assessment & Plan: Vit d levels are good, she is taking her meds like she should. MAXIMO (acute kidney injury) 11/08/20142019 Prediabetes 05/16/2014 03/28/2020 Overview: Dx: 2002, Currently well controlled. She is legally blind in the left eye, related to issues. Last Assessment & Plan: Last test was in the non diabetic range. 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 Hypoplastic C1 Diabetes mellitus, type 2 2018 Overview: Dx 2011. +Albuminuria Last Assessment & Plan: Diet controlled, Fasting usually run in the 79 range and after it is 115. Not on any medication. documented as of this encounter (statuses as of 03/15/2023) [facility] History of Past illness Narrative* Problem Noted Date Resolved Date Colon cancer screening 02/20/2016 1 Controlled type 2 diabetes m elias with stage 4 chronic kidney disease, without long-term current use of insulin 07/03/2015 03/28/2020 Vitamin D deficiency 12/27/2014 03/28/2020 Last Assessment & Plan: Vit d levels are good, she is taking her meds like she should. MAXIMO (acute kidney injury) 11/08/20142019 Prediabetes 05/16/2014 03/28/2020 Overview: Dx: 2002, Currently well controlled. She is legally blind in the left eye, related to issues. Last Assessment & Plan: Last test was in the non diabetic range. 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 Hypoplastic C1 Diabetes mellitus, type 2 2018 Overview: Dx 2011. +Albuminuria Last Assessment & Plan: Diet controlled, Fasting usually run in the 79 range and after it is 115. Not on any medication. documented as of this encounter (statuses as of 03/18/2023) [facility] History of Past illness Narrative* Problem Noted Date Diagnosed Date Resolved Date Colon cancer screening 02/20/201601/15 Controlled type 2 diabetes m elias with stage 4 chronic kidney disease, without long-term current use of insulin 07/03/2015 020 Vitamin D deficiency 12/27/2014 020 Last Assessment & Plan: Vit d levels are good, she is taking her meds like she should. MAXIMO (acute kidney injury) 11/08/2014 Prediabetes 05/16/2014 03/28/2020 Overview: Dx: 2002, Currently well controlled. She is legally blind in the left eye, related to issues. Last Assessment & Plan: Last test was in the non diabetic range. 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 Hypoplastic C1 Diabetes mellitus, type 2 Overview: Dx 2011. +Albuminuria Last Assessment & Plan: Diet controlled, Fasting usually run in the 79 range and after it is 115. Not on any medication. documented as of this encounter (statuses as of 04/19/2023) [facility] History of Past illness Narrative* Problem Noted Date Diagnosed Date Resolved Date Colon cancer screening 02/20/201601/15 Controlled type 2 diabetes m elias with stage 4 chronic kidney disease, without long-term current use of insulin 07/03/2015 020 Vitamin D deficiency 12/27/2014 020 Last Assessment & Plan: Vit d levels are good, she is taking her meds like she should. MAXIMO (acute kidney injury) 11/08/2014 Prediabetes 05/16/2014 03/28/2020 Overview: Dx: 2002, Currently well controlled. She is legally blind in the left eye, related to issues. Last Assessment & Plan: Last test was in the non diabetic range. 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 Hypoplastic C1 Diabetes mellitus, type 2 Overview: Dx 2011. +Albuminuria Last Assessment & Plan: Diet controlled, Fasting usually run in the 79 range and after it is 115. Not on any medication. documented as of this encounter (statuses as of 04/19/2023) [facility] History of Past illness Narrative* Problem Noted Date Diagnosed Date Resolved Date Colon cancer screening 02/20/201601/15 Controlled type 2 diabetes m elias with stage 4 chronic kidney disease, without long-term current use of insulin 07/03/2015 Vitamin D deficiency 12/27/2014 020 Last Assessment & Plan: Vit d levels are good, she is taking her meds like she should. MAXIMO (acute kidney injury) 11/08/2014 Prediabetes 05/16/2014 03/28/2020 Overview: Dx: 2002, Currently well controlled. She is legally blind in the left eye, related to issues. Last Assessment & Plan: Last test was in the non diabetic range. 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 Hypoplastic C1 Diabetes mellitus, type 2 Overview: Dx 2011. +Albuminuria Last Assessment & Plan: Diet controlled, Fasting usually run in the 79 range and after it is 115. Not on any medication. documented as of this encounter (statuses as of 04/21/2023) [facility] History of Past illness Narrative* Problem Noted Date Diagnosed Date Resolved Date Colon cancer screening 02/20/201601/15 Controlled type 2 diabetes m elias with stage 4 chronic kidney disease, without long-term current use of insulin 07/03/2015 020 Vitamin D deficiency 12/27/2014 020 Last Assessment & Plan: Vit d levels are good, she is taking her meds like she should. MAXIMO (acute kidney injury) 11/08/2014 Prediabetes 05/16/2014 03/28/2020 Overview: Dx: 2002, Currently well controlled. She is legally blind in the left eye, related to issues. Last Assessment & Plan: Last test was in the non diabetic range. 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 Hypoplastic C1 Diabetes mellitus, type 2 Overview: Dx 2011. +Albuminuria Last Assessment & Plan: Diet controlled, Fasting usually run in the 79 range and after it is 115. Not on any medication. documented as of this encounter (statuses as of 05/19/2023) [facility] History of Past illness Narrative* Problem Noted Date Diagnosed Date Resolved Date Colon cancer screening 02/20/201601/15 Controlled type 2 diabetes m elias with stage 4 chronic kidney disease, without long-term current use of insulin 07/03/2015 Vitamin D deficiency 12/27/2014 020 Last Assessment & Plan: Vit d levels are good, she is taking her meds like she should. MAXIMO (acute kidney injury) 11/08/2014 Prediabetes 05/16/2014 03/28/2020 Overview: Dx: 2002, Currently well controlled. She is legally blind in the left eye, related to issues. Last Assessment & Plan: Last test was in the non diabetic range. 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 Hypoplastic C1 Diabetes mellitus, type 2 Overview: Dx 2011. +Albuminuria Last Assessment & Plan: Diet controlled, Fasting usually run in the 79 range and after it is 115. Not on any medication. documented as of this encounter (statuses as of 05/24/2023) [facility] History of Past illness Narrative* Problem Noted Date Diagnosed Date Resolved Date Colon cancer screening 02/20/201601/15 Controlled type 2 diabetes m elias with stage 4 chronic kidney disease, without long-term current use of insulin 07/03/2015 Vitamin D deficiency 12/27/2014 020 Last Assessment & Plan: Vit d levels are good, she is taking her meds like she should. MAXIMO (acute kidney injury) 11/08/2014 Prediabetes 05/16/2014 03/28/2020 Overview: Dx: 2002, Currently well controlled. She is legally blind in the left eye, related to issues. Last Assessment & Plan: Last test was in the non diabetic range. 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 Hypoplastic C1 Diabetes mellitus, type 2 Overview: Dx 2011. +Albuminuria Last Assessment & Plan: Diet controlled, Fasting usually run in the 79 range and after it is 115. Not on any medication. documented as of this encounter (statuses as of 05/24/2023) [facility] History of Past illness Narrative* Problem Noted Date Diagnosed Date Resolved Date Colon cancer screening 02/20/201601/15 Controlled type 2 diabetes m elias with stage 4 chronic kidney disease, without long-term current use of insulin 07/03/2015 020 Vitamin D deficiency 12/27/2014 020 Last Assessment & Plan: Vit d levels are good, she is taking her meds like she should. MAXIMO (acute kidney injury) 11/08/2014 Prediabetes 05/16/2014 03/28/2020 Overview: Dx: 2002, Currently well controlled. She is legally blind in the left eye, related to issues. Last Assessment & Plan: Last test was in the non diabetic range. 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 Hypoplastic C1 Diabetes mellitus, type 2 Overview: Dx 2011. +Albuminuria Last Assessment & Plan: Diet controlled, Fasting usually run in the 79 range and after it is 115. Not on any medication. documented as of this encounter (statuses as of 06/01/2023) [facility] History of Past illness Narrative* Problem Noted Date Diagnosed Date Resolved Date Colon cancer screening 02/20/201601/15 Controlled type 2 diabetes m elias with stage 4 chronic kidney disease, without long-term current use of insulin 07/03/2015 020 Vitamin D deficiency 12/27/2014 020 Last Assessment & Plan: Vit d levels are good, she is taking her meds like she should. MAXIMO (acute kidney injury) 11/08/2014 Prediabetes 05/16/2014 03/28/2020 Overview: Dx: 2002, Currently well controlled. She is legally blind in the left eye, related to issues. Last Assessment & Plan: Last test was in the non diabetic range. 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 Hypoplastic C1 Diabetes mellitus, type 2 Overview: Dx 2011. +Albuminuria Last Assessment & Plan: Diet controlled, Fasting usually run in the 79 range and after it is 115. Not on any medication. documented as of this encounter (statuses as of 06/07/2023) [facility] History of Past illness Narrative* Problem Noted Date Diagnosed Date Resolved Date Colon cancer screening 02/20/201601/15 Controlled type 2 diabetes m elias with stage 4 chronic kidney disease, without long-term current use of insulin 07/03/2015 020 Vitamin D deficiency 12/27/2014 020 Last Assessment & Plan: Vit d levels are good, she is taking her meds like she should. MAXIMO (acute kidney injury) 11/08/2014 Prediabetes 05/16/2014 03/28/2020 Overview: Dx: 2002, Currently well controlled. She is legally blind in the left eye, related to issues. Last Assessment & Plan: Last test was in the non diabetic range. 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 Hypoplastic C1 Diabetes mellitus, type 2 Overview: Dx 2011. +Albuminuria Last Assessment & Plan: Diet controlled, Fasting usually run in the 79 range and after it is 115. Not on any medication. documented as of this encounter (statuses as of 06/18/2023) [facility] History of Past illness Narrative* Problem Noted Date Diagnosed Date Resolved Date Colon cancer screening 02/20/201601/15 Controlled type 2 diabetes m elias with stage 4 chronic kidney disease, without long-term current use of insulin 07/03/2015 020 Vitamin D deficiency 12/27/2014 020 Last Assessment & Plan: Vit d levels are good, she is taking her meds like she should. MAXIMO (acute kidney injury) 11/08/2014 Prediabetes 05/16/2014 03/28/2020 Overview: Dx: 2002, Currently well controlled. She is legally blind in the left eye, related to issues. Last Assessment & Plan: Last test was in the non diabetic range. 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 Hypoplastic C1 Diabetes mellitus, type 2 Overview: Dx 2011. +Albuminuria Last Assessment & Plan: Diet controlled, Fasting usually run in the 79 range and after it is 115. Not on any medication. documented as of this encounter (statuses as of 06/22/2023) [facility] History of Past illness Narrative* Problem Noted Date Diagnosed Date Resolved Date Colon cancer screening 02/20/201601/15 Controlled type 2 diabetes m elias with stage 4 chronic kidney disease, without long-term current use of insulin 07/03/2015 020 Vitamin D deficiency 12/27/2014 020 Last Assessment & Plan: Vit d levels are good, she is taking her meds like she should. MAXIMO (acute kidney injury) 11/08/2014 Prediabetes 05/16/2014 03/28/2020 Overview: Dx: 2002, Currently well controlled. She is legally blind in the left eye, related to issues. Last Assessment & Plan: Last test was in the non diabetic range. 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 Hypoplastic C1 Diabetes mellitus, type 2 Overview: Dx 2011. +Albuminuria Last Assessment & Plan: Diet controlled, Fasting usually run in the 79 range and after it is 115. Not on any medication. documented as of this encounter (statuses as of 07/19/2023) [facility] History of Past illness Narrative* Problem Noted Date Diagnosed Date Resolved Date Colon cancer screening 02/20/201601/15 Controlled type 2 diabetes m elias with stage 4 chronic kidney disease, without long-term current use of insulin 07/03/2015 020 Vitamin D deficiency 12/27/2014 020 Last Assessment & Plan: Vit d levels are good, she is taking her meds like she should. MAXIMO (acute kidney injury) 11/08/2014 Prediabetes 05/16/2014 03/28/2020 Overview: Dx: 2002, Currently well controlled. She is legally blind in the left eye, related to issues. Last Assessment & Plan: Last test was in the non diabetic range. 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 Hypoplastic C1 Diabetes mellitus, type 2 Overview: Dx 2011. +Albuminuria Last Assessment & Plan: Diet controlled, Fasting usually run in the 79 range and after it is 115. Not on any medication. documented as of this encounter (statuses as of 07/21/2023) [facility] History of Past illness Narrative* Problem Noted Date Diagnosed Date Resolved Date Colon cancer screening 02/20/201601/15 Controlled type 2 diabetes m elias with stage 4 chronic kidney disease, without long-term current use of insulin 07/03/2015 020 Vitamin D deficiency 12/27/2014 020 Last Assessment & Plan: Vit d levels are good, she is taking her meds like she should. MAXIMO (acute kidney injury) 11/08/2014 Prediabetes 05/16/2014 03/28/2020 Overview: Dx: 2002, Currently well controlled. She is legally blind in the left eye, related to issues. Last Assessment & Plan: Last test was in the non diabetic range. 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 Hypoplastic C1 Diabetes mellitus, type 2 Overview: Dx 2011. +Albuminuria Last Assessment & Plan: Diet controlled, Fasting usually run in the 79 range and after it is 115. Not on any medication. documented as of this encounter (statuses as of 08/24/2023) [facility] History of Past illness Narrative* Problem Noted Date Diagnosed Date Resolved Date Colon cancer screening 02/20/201601/15 Controlled type 2 diabetes m elias with stage 4 chronic kidney disease, without long-term current use of insulin 07/03/2015 020 Vitamin D deficiency 12/27/2014 020 Last Assessment & Plan: Vit d levels are good, she is taking her meds like she should. MAXIMO (acute kidney injury) 11/08/2014 Prediabetes 05/16/2014 03/28/2020 Overview: Dx: 2002, Currently well controlled. She is legally blind in the left eye, related to issues. Last Assessment & Plan: Last test was in the non diabetic range. 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 Hypoplastic C1 Diabetes mellitus, type 2 Overview: Dx 2012. +Albuminuria Last Assessment & Plan: Diet controlled, Fasting usually run in the 79 range and after it is 115. Not on any medication. documented as of this encounter (statuses as of 08/27/2023) [facility] note* Diagnosis Type 2 diabetes mellitus without complication, without long-term current use of insulin ([facility]) [facility] Diagnosis Gastroesophageal reflux disease without esophagitis- Primary Esophageal reflux [facility] Diagnosis Type 2 diabetes mellitus without complication, without long-term current use of insulin (HCC)- Primary Acquired hypothyroidism Unspecified hypothyroidism 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 [facility] Diagnosis Acute cough- Primary URI, acute Acute upper respiratory infections of unspecified site [facility] Diagnosis Kidney replaced by transplant [facility] Diagnosis Skin lesion- Primary Unspecified disorder of skin and subcutaneous tissue Stage 3a chronic kidney disease (HCC) Type 2 diabetes mellitus with stage 3a chronic kidney disease, without long-term current use of insulin (HCC) Hypercalcemia Essential hypertension Unspecified essential hypertension [facility] Diagnosis Other hyperlipidemia [facility] Diagnosis Type 2 diabetes mellitus without complication, without long-term current use of insulin (HCC) [facility] Diagnosis Encounter for aftercare following kidney transplant- Primary Aftercare following organ transplant Immunosuppressive management encounter following kidney transplant Encounter for long-term (current) use of other medications BK viremia Viremia, unspecified Essential hypertension Unspecified essential hypertension [facility] Diagnosis Kidney replaced by transplant- Primary [facility]* Diagnosis Acute otitis media, right- Primary Unspecified otitis media [facility] Diagnosis Essential hypertension- Primary Unspecified essential hypertension Other hyperlipidemia Type 2 diabetes mellitus with stage 3a chronic kidney disease, without long-term current use of insulin (HCC) Acquired hypothyroidism Unspecified hypothyroidism Stage 3a chronic kidney disease (HCC) Need for influenza vaccination Need for prophylactic vaccination and inoculation against influenza [facility] Diagnosis Gastroesophageal reflux disease without esophagitis- Primary Esophageal reflux Personal history of colonic polyps [facility] Diagnosis Kidney replaced by transplant- Primary Vitamin D deficiency Unspecified vitamin D deficiency [facility] Diagnosis Other hyperlipidemia [facility]* Diagnosis Type 2 diabetes mellitus without complication, without long-term current use of insulin (HCC) [facility] Diagnosis Type 2 diabetes mellitus without complication, without long-term current use of insulin (HCC) [facility] Diagnosis Type 2 diabetes mellitus without complication, without long-term current use of insulin (HCC) [facility]* Diagnosis Type 2 diabetes mellitus without complication, without long-term current use of insulin (HCC)- Primary Secondary renal hyperparathyroidism (HCC) Secondary hyperparathyroidism (of renal origin) Type 2 diabetes mellitus with stage 3a chronic kidney disease, without long-term current use of insulin (HCC) Stage 3a chronic kidney disease (HCC) 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) ([facility]) [facility] Diagnosis Kidney replaced by transplant- Primary Vitamin D deficiency Unspecified vitamin D deficiency [facility] Diagnosis Kidney replaced by transplant [facility] Diagnosis Other hyperlipidemia [facility]* Diagnosis Encounter for aftercare following kidney transplant- Primary Aftercare following organ transplant Kidney replaced by transplant Therapeutic drug monitoring Encounter for therapeutic drug monitoring Hypertension, unspecified type Immunosuppressive management encounter following kidney transplant Encounter for long-term (current) use of other medications [facility] Diagnosis Diabetic polyneuropathy associated with type 2 diabetes mellitus (HCC)- Primary Onychomycosis Dermatophytosis of nail Pain in toe of left foot Pain in limb Pain in toe of right foot Pain in limb Hyperkeratosis Acquired keratoderma Contusion of left great toe without damage to nail, initial encounter [facility]* Diagnosis Type 2 diabetes mellitus without complication, without long-term current use of insulin (HCC) documented in this encounter [facility]* Diagnosis Finger pain, right- Primary Pain in limb Great toe pain, left documented in this encounter [facility]* Diagnosis Encounter for screening mammogram for malignant neoplasm of breast- Primary Other screening mammogram documented in this encounter [facility]* Diagnosis Gastroesophageal reflux disease without esophagitis- Primary Esophageal reflux Personal history of colonic polyps documented in this encounter [facility]* Diagnosis Kidney replaced by transplant- Primary [facility]* Diagnosis Acquired hypothyroidism Unspecified hypothyroidism Multiple thyroid nodules Nontoxic multinodular goiter documented in this encounter [facility] for referral (narrative)* Diagnostic Procedure Only (Urgent) - Closed Specialty Diagnoses / Procedures Referred By Contac t Referred To Contact XR IMAGING Diagnoses Great toe pain, left Procedures XR TOE AP/LAT/OBL LEFT RADEX TOE MINIMUM 2 VIEWS Irais Murphy APRN.VETERINARY TECHNICIAN ASSISTANT [address] [place] [address] [place] [address] Referral ID Status Reason Start Date Expiration Date V isits Requested Visits Authorized [id number] Closed Auto-Generate d Referral 06/06/2023 07/05/2024 1 1 * Diagnostic Procedure Only (Urgent) - Closed Specialty Diagnoses / Procedures Referred By Contac t Referred To Contact XR IMAGING Diagnoses Finger pain, right Procedures XR DIGIT GENERAL 3V FRONTAL/LAT/OBL RIGHT RADEX FINGR MINIMUM 2 VIEWS Irais Murphy APRN.CNP [address] [place] [address] [place] [address] Referral ID Status Reason Start Date Expiration Date V isits Requested Visits Authorized [id number] Closed Auto-Generate d Referral 06/06/2023 07/05/2024 1 1 [facility] for referral (narrative)* Diagnostic Procedure Only (Routine) - Authorized Specialty Diagnoses / Procedures Referred By Johnathan mancera Referred To Contact BR IMAGING Diagnoses Encounter for screening mammogram for malignant neoplasm of breast Procedures YONATHAN SCREENING W SALOME SCREENING DIGITAL BREAST TOMOSYNTHESIS BI SCREENING MAMMOGRAPHY BI 2-VIEW BREAST INC Kaylen Lira APRN.VETERINARY TECHNICIAN ASSISTANT [address] [place] [address] [facility] [address] [place] [address] Referral ID Status Reason Start Date Expiration Date Visits Requested Visits Authorized [id number] Authorized Auto-Generat ed Referral 07/19/2024 1 1 [facility] for visit Narrative* Diagnostic Procedure Only (Routine) - Closed Specialty Diagnoses / Procedures Referred By Johnathan mancera Referred To Contact US IMAGING Diagnoses Acquired hypothyroidism Multiple thyroid nodules Procedures US THYROID/PARATHYROID US SOFT TISSUE HEAD & NECK REAL TIME IMGE DOCAp Page APRN.VETERINARY TECHNICIAN ASSISTANT [address] [place] [address] [place] [address] Referral ID Status Reason Start Date Expiration Date V isits Requested Visits Authorized [id number] Closed Auto-Generate d Referral 08/19/2023 09/17/2024 1 1 [facility] Summary Purpose Family History No Family History Records FoundNo Family History Records Found Advance Directives No Advanced Directives Records FoundDocuments on File Type Date Recorded 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 Advance Directive(s) 11/19/2021 9:30 AM Advance Directive(s) 09/30/2019 9:51 PM Advance Directive(s) 09/13/2019 4:15 PM Advance Directive(s) 09/13/2019 4:42 PM Advance Directive(s) 02/23/2019 6:59 AM Advance Directive(s) 02/17/2017 11:27 AM Advance Directive(s) 02/20/2016 11:16 AM Documents on File Type Date Recorded 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 Advance Directive(s) 09/13/2019 4:42 PM Documents on File Type Date Recorded 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 Advance Directive(s) 09/13/2019 4:42 PM Health Concerns Infection Onset Date Last Indicated Resolved Time COVID-19 Rule-Out 03/19/2022 03/19/2022 Infection Onset Date Last Indicated Resolved Time COVID-19 Confirmed 03/19/2022 03/19/2022 Infection Onset Date Last Indicated Resolved Time COVID-19 Confirmed 03/19/2022 03/19/2022 2 8:51 PM EDT Problem Noted Date High Risk Chronic Disease Home Monitorin g Problem 01/26/2023 Problem Noted Date High Risk Chronic Disease Home Monitorin g Problem 01/26/2023 Problem Noted Date Diagnosed Date High Risk Chronic Disease Home Monitoring Proble m 01/26/2023 Problem Noted Date Diagnosed Date High Risk Chronic Disease Home Monitoring Proble m 01/26/2023 Problem Noted Date Diagnosed Date High Risk Chronic Disease Home Monitoring Proble m 01/26/2023 Problem Noted Date Diagnosed Date High Risk Chronic Disease Home Monitoring Proble m 01/26/2023 Problem Noted Date Diagnosed Date High Risk Chronic Disease Home Monitoring Proble m 01/26/2023 Problem Noted Date Diagnosed Date High Risk Chronic Disease Home Monitoring Proble 01/26/2023 Problem Noted Date Diagnosed Date High Risk Chronic Disease Home Monitoring Proble m 01/26/2023 Problem Noted Date Diagnosed Date High Risk Chronic Disease Home Monitoring Proble m 01/26/2023 Problem Noted Date Diagnosed Date High Risk Chronic Disease Home Monitoring Proble 01/26/2023 Problem Noted Date Diagnosed Date High Risk Chronic Disease Home Monitoring Proble 01/26/2023 Reason for Referral Specialty Diagnoses / Procedures Referred By Johnathan mancera Referred To Contact Dermatology Diagnoses Skin lesion Procedures CONSULT TO DERMATOLOGY Tameka Guzmán MD [address] [place] [address] Referral ID Status Reason Start Date Expiration Date Visits Requested Visits Authorized [id number] Ref Not Required PCP Requested Referral 04/30/2022 04/30/2023 1 1 Additional Source Comments INFORMATION SOURCE (unrecogn ized section and content) DATE CREATED AUTHOR AUTHOR'S ORGANIZ ATION 10/05/2023 [facility] Source Comments (unrecognize d section and content) In the event this informatio n is protected by the Federal Confidentiality of Alcohol and Drug Abuse Patient Records regulations: The Federal rules restrict any use of the information to criminally investigate or prosecute any alcohol or drug abuse patient.[facility] the event this information is protected by the Federal Confidentiality of Alcohol and Drug Abuse Patient Records regulations: The Federal rules restrict any use of the information to criminally investigate or prosecute any alcohol or drug abuse patient.[facility] the event this information is protected by the Federal Confidentiality of Alcohol and Drug Abuse Patient Records regulations: The Federal rules restrict any use of the information to criminally investigate or prosecute any alcohol or drug abuse patient.[facility] the event this information is protected by the Federal Confidentiality of Alcohol and Drug Abuse Patient Records regulations: The Federal rules restrict any use of the information to criminally investigate or prosecute any alcohol or drug abuse patient.[facility] the event this information is protected by the Federal Confidentiality of Alcohol and Drug Abuse Patient Records regulations: The Federal rules restrict any use of the information to criminally investigate or prosecute any alcohol or drug abuse patient.[facility] the event this information is protected by the Federal Confidentiality of Alcohol and Drug Abuse Patient Records regulations: The Federal rules restrict any use of the information to criminally investigate or prosecute any alcohol or drug abuse patient.[facility] the event this information is protected by the Federal Confidentiality of Alcohol and Drug Abuse Patient Records regulations: The Federal rules restrict any use of the information to criminally investigate or prosecute any alcohol or drug abuse patient.[facility] the event this information is protected by the Federal Confidentiality of Alcohol and Drug Abuse Patient Records regulations: The Federal rules restrict any use of the information to criminally investigate or prosecute any alcohol or drug abuse patient.[facility] the event this information is protected by the Federal Confidentiality of Alcohol and Drug Abuse Patient Records regulations: The Federal rules restrict any use of the information to criminally investigate or prosecute any alcohol or drug abuse patient.[facility] the event this information is protected by the Federal Confidentiality of Alcohol and Drug Abuse Patient Records regulations: The Federal rules restrict any use of the information to criminally investigate or prosecute any alcohol or drug abuse patient.[facility] the event this information is protected by the Federal Confidentiality of Alcohol and Drug Abuse Patient Records regulations: The Federal rules restrict any use of the information to criminally investigate or prosecute any alcohol or drug abuse patient.[facility] the event this information is protected by the Federal Confidentiality of Alcohol and Drug Abuse Patient Records regulations: The Federal rules restrict any use of the information to criminally investigate or prosecute any alcohol or drug abuse patient.[facility] the event this information is protected by the Federal Confidentiality of Alcohol and Drug Abuse Patient Records regulations: The Federal rules restrict any use of the information to criminally investigate or prosecute any alcohol or drug abuse patient.[facility] the event this information is protected by the Federal Confidentiality of Alcohol and Drug Abuse Patient Records regulations: The Federal rules restrict any use of the information to criminally investigate or prosecute any alcohol or drug abuse patient.[facility] the event this information is protected by the Federal Confidentiality of Alcohol and Drug Abuse Patient Records regulations: The Federal rules restrict any use of the information to criminally investigate or prosecute any alcohol or drug abuse patient.[facility] HospitalIn the event this information is protected by the Federal Confidentiality of Alcohol and Drug Abuse Patient Records regulations: The Federal rules restrict any use of the information to criminally investigate or prosecute any alcohol or drug abuse patient.[facility] HospitalIn the event this information is protected by the Federal Confidentiality of Alcohol and Drug Abuse Patient Records regulations: The Federal rules restrict any use of the information to criminally investigate or prosecute any alcohol or drug abuse patient.[facility] HospitalIn the event this information is protected by the Federal Confidentiality of Alcohol and Drug Abuse Patient Records regulations: The Federal rules restrict any use of the information to criminally investigate or prosecute any alcohol or drug abuse patient.[facility] HospitalIn the event this information is protected by the Federal Confidentiality of Alcohol and Drug Abuse Patient Records regulations: The Federal rules restrict any use of the information to criminally investigate or prosecute any alcohol or drug abuse patient.[facility] HospitalIn the event this information is protected by the Federal Confidentiality of Alcohol and Drug Abuse Patient Records regulations: The Federal rules restrict any use of the information to criminally investigate or prosecute any alcohol or drug abuse patient.[facility] HospitalIn the event this information is protected by the Federal Confidentiality of Alcohol and Drug Abuse Patient Records regulations: The Federal rules restrict any use of the information to criminally investigate or prosecute any alcohol or drug abuse patient.[facility] HospitalIn the event this information is protected by the Federal Confidentiality of Alcohol and Drug Abuse Patient Records regulations: The Federal rules restrict any use of the information to criminally investigate or prosecute any alcohol or drug abuse patient.[facility] HospitalIn the event this information is protected by the Federal Confidentiality of Alcohol and Drug Abuse Patient Records regulations: The Federal rules restrict any use of the information to criminally investigate or prosecute any alcohol or drug abuse patient.[facility] HospitalIn the event this information is protected by the Federal Confidentiality of Alcohol and Drug Abuse Patient Records regulations: The Federal rules restrict any use of the information to criminally investigate or prosecute any alcohol or drug abuse patient.[facility] HospitalIn the event this information is protected by the Federal Confidentiality of Alcohol and Drug Abuse Patient Records regulations: The Federal rules restrict any use of the information to criminally investigate or prosecute any alcohol or drug abuse patient.[facility] HospitalIn the event this information is protected by the Federal Confidentiality of Alcohol and Drug Abuse Patient Records regulations: The Federal rules restrict any use of the information to criminally investigate or prosecute any alcohol or drug abuse patient.[facility] HospitalIn the event this information is protected by the Federal Confidentiality of Alcohol and Drug Abuse Patient Records regulations: The Federal rules restrict any use of the information to criminally investigate or prosecute any alcohol or drug abuse patient.[facility] HospitalIn the event this information is protected by the Federal Confidentiality of Alcohol and Drug Abuse Patient Records regulations: The Federal rules restrict any use of the information to criminally investigate or prosecute any alcohol or drug abuse patient.[facility] HospitalIn the event this information is protected by the Federal Confidentiality of Alcohol and Drug Abuse Patient Records regulations: The Federal rules restrict any use of the information to criminally investigate or prosecute any alcohol or drug abuse patient.[facility] HospitalIn the event this information is protected by the Federal Confidentiality of Alcohol and Drug Abuse Patient Records regulations: The Federal rules restrict any use of the information to criminally investigate or prosecute any alcohol or drug abuse patient.[facility] HospitalIn the event this information is protected by the Federal Confidentiality of Alcohol and Drug Abuse Patient Records regulations: The Federal rules restrict any use of the information to criminally investigate or prosecute any alcohol or drug abuse patient.[facility] HospitalIn the event this information is protected by the Federal Confidentiality of Alcohol and Drug Abuse Patient Records regulations: The Federal rules restrict any use of the information to criminally investigate or prosecute any alcohol or drug abuse patient.[facility] HospitalIn the event this information is protected by the Federal Confidentiality of Alcohol and Drug Abuse Patient Records regulations: The Federal rules restrict any use of the information to criminally investigate or prosecute any alcohol or drug abuse patient.[facility] HospitalIn the event this information is protected by the Federal Confidentiality of Alcohol and Drug Abuse Patient Records regulations: The Federal rules restrict any use of the information to criminally investigate or prosecute any alcohol or drug abuse patient.[facility] HospitalIn the event this information is protected by the Federal Confidentiality of Alcohol and Drug Abuse Patient Records regulations: The Federal rules restrict any use of the information to criminally investigate or prosecute any alcohol or drug abuse patient.[facility] HospitalIn the event this information is protected by the Federal Confidentiality of Alcohol and Drug Abuse Patient Records regulations: The Federal rules restrict any use of the information to criminally investigate or prosecute any alcohol or drug abuse patient.[facility] HospitalIn the event this information is protected by the Federal Confidentiality of Alcohol and Drug Abuse Patient Records regulations: The Federal rules restrict any use of the information to criminally investigate or prosecute any alcohol or drug abuse patient.[facility] HospitalIn the event this information is protected by the Federal Confidentiality of Alcohol and Drug Abuse Patient Records regulations: The Federal rules restrict any use of the information to criminally investigate or prosecute any alcohol or drug abuse patient.[facility] HospitalIn the event this information is protected by the Federal Confidentiality of Alcohol and Drug Abuse Patient Records regulations: The Federal rules restrict any use of the information to criminally investigate or prosecute any alcohol or drug abuse patient.[facility] HospitalIn the event this information is protected by the Federal Confidentiality of Alcohol and Drug Abuse Patient Records regulations: The Federal rules restrict any use of the information to criminally investigate or prosecute any alcohol or drug abuse patient.[facility] HospitalIn the event this information is protected by the Federal Confidentiality of Alcohol and Drug Abuse Patient Records regulations: The Federal rules restrict any use of the information to criminally investigate or prosecute any alcohol or drug abuse patient.[facility] HospitalIn the event this information is protected by the Federal Confidentiality of Alcohol and Drug Abuse Patient Records regulations: The Federal rules restrict any use of the information to criminally investigate or prosecute any alcohol or drug abuse patient.[facility] HospitalIn the event this information is protected by the Federal Confidentiality of Alcohol and Drug Abuse Patient Records regulations: The Federal rules restrict any use of the information to criminally investigate or prosecute any alcohol or drug abuse patient.[facility] HospitalIn the event this information is protected by the Federal Confidentiality of Alcohol and Drug Abuse Patient Records regulations: The Federal rules restrict any use of the information to criminally investigate or prosecute any alcohol or drug abuse patient.[facility] HospitalIn the event this information is protected by the Federal Confidentiality of Alcohol and Drug Abuse Patient Records regulations: The Federal rules restrict any use of the information to criminally investigate or prosecute any alcohol or drug abuse patient.[facility] HospitalIn the event this information is protected by the Federal Confidentiality of Alcohol and Drug Abuse Patient Records regulations: The Federal rules restrict any use of the information to criminally investigate or prosecute any alcohol or drug abuse patient.[facility] HospitalIn the event this information is protected by the Federal Confidentiality of Alcohol and Drug Abuse Patient Records regulations: The Federal rules restrict any use of the information to criminally investigate or prosecute any alcohol or drug abuse patient.[facility] HospitalIn the event this information is protected by the Federal Confidentiality of Alcohol and Drug Abuse Patient Records regulations: The Federal rules restrict any use of the information to criminally investigate or prosecute any alcohol or drug abuse patient.[facility] Reason for Visit (unrecogniz ed section and content) Reason Onset Date Comments Refill Request 01/14/2022 Reason Comments Results Reason Comments GERD Reason Onset Date Comments Population Health Navigation Outreach 03/09/2022 [place] care gaps Reason Comments Patient Update Reason Comments Medication Follow-up Reason Comments Cough back hurts while cou ghing x 4 days Reason Onset Date Comments Refill Request 04/08/2022 Reason Comments Same Day Appointment moles on facce, chi n and right arm itchy Reason Comments Refill Request Reason Onset Date Comments community monitoring outreach 05/19/2022 In sight enrolled via avery/ Healthy At Home given Reason Onset Date Comments Refill Request 05/27/2022 Reason Comments Follow Up Reason Onset Date Comments Refill Request 07/08/2022 Reason Comments Ear Pain Right ear pain, bloo d seen on q-tip. Had surgery on right neck area yesterday. C/o cough, started last night Reason Onset Date Comments F/U Diabetes 3 Month Immunizations 08/06/2022 Flu vaccination Reason Onset Date Comments Refill Request 08/25/2022 Reason Onset Date Comments Community Monitoring Outreach 10/20/2022 CD M Escalation Reason Comments Insurance Authorization Reason Onset Date Comments Refill Request 01/03/2023 Reason Comments F/U 6 months Reason Onset Date Comments Refill Request 03/17/2023 Reason Comments Renal Txp Follow Up Reason Comments Diabetic Foot Care Established Patient Pain Reason Onset Date Comments Refill Request 05/23/2023 Reason Comments Imm/Inj Reason Comments Finger Injury right index finger x today, hurt putting on shoe, left big toe bruised x 1 month after dropping bottle on it in shower Reason Comments Lab Orders Reason Comments Orders Care Teams (unrecognized sec tion and content) Chief Passenger Ship Steward/Stewardess Relationship Specialty Start Date End Date Tameka Guzmán MD [address] [place], [place] [id number] PCP - General Internal Medicine 03/28/15 Heber Sullivan, RN Registered Nurse Transplant Center 09/24/19 Ileana Quiroga MD Primary Staff Physician Cardiology 11/28/18 SANTI Dimas at [facility] Community Resource 09/27/19 Chief Passenger Ship Steward/Stewardess Relationship Specialty Start Date End Date Tameka Guzmán MD [address] [place], [place] [id number] PCP - General Internal Medicine 03/28/15 Heber Sullivan, RN Registered Nurse Transplant Center 09/24/19 Ileana Quiroga MD Primary Staff Physician Cardiology 11/28/18 SANTI Dimas at [facility] Community Resource 09/27/19 Chief Passenger Ship Steward/Stewardess Relationship Specialty Start Date End Date Tameka Guzmán MD [address] [place], [place] [id number] PCP - General Internal Medicine 03/28/15 Heber Sullivan, RN Registered Nurse Transplant Center 09/24/19 Ileana Quiroga MD Primary Staff Physician Cardiology 11/28/18 SANTI Dimas at [facility] Community Resource 09/27/19 Chief Passenger Ship Steward/Stewardess Relationship Specialty Start Date End Date Tameka Gzumán MD [address] [place], [place] [id number] PCP - General Internal Medicine 03/28/15 Heber Sullivan, RN Registered Nurse Transplant Center 09/24/19 Ileana Quiroga MD Primary Staff Physician Cardiology 11/28/18 Judie, CM at [facility] Community Resource 09/27/19 Chief Passenger Ship Steward/Stewardess Relationship Specialty Start Date End Date Tameka Guzmán MD [address] [place], [place] [id number] PCP - General Internal Medicine 03/28/15 Heber Sullivan, RN Registered Nurse Transplant Center 09/24/19 Ileana Quiroga MD Primary Staff Physician Cardiology 11/28/18 Judie CM at [facility] Community Resource 09/27/19 Chief Passenger Ship Steward/Stewardess Relationship Specialty Start Date End Date Tameka Guzmán MD [address] [place], [place] [id number] PCP - General Internal Medicine 03/28/15 Heber Sullivan, RN Registered Nurse Transplant Center 09/24/19 Ileana Quiroga MD Primary Staff Physician Cardiology 11/28/18 Judie CM at [facility] Community Resource 09/27/19 Chief Passenger Ship Steward/Stewardess Relationship Specialty Start Date End Date Tameka Guzmán MD [address] [place], [place] [id number] PCP - General Internal Medicine 03/28/15 Heber Sullivan, RN Registered Nurse Transplant Center 09/24/19 Ileana Quiroga MD Primary Staff Physician Cardiology 11/28/18 Judie CM at [facility] Community Resource 09/27/19 Chief Passenger Ship Steward/Stewardess Relationship Specialty Start Date End Date Tameka Guzmán MD [address] [facility], [place] [id number] PCP - General Internal Medicine 03/28/15 Heber Sullivan, RN Registered Nurse Transplant Center 09/24/19 Ileana Quiroga MD Primary Staff Physician Cardiology 11/28/18 Judie at [phone] (Work) Community Resource 09/27/19 Chief Passenger Ship Steward/Stewardess Relationship Specialty Start Date End Date Tameka Guzmán MD [address] [place], [place] [id number] PCP - General Internal Medicine 03/28/15 Heber Sullivan, RN Registered Nurse Transplant Center 09/24/19 Ileana Quiroga MD Primary Staff Physician Cardiology 11/28/18 Liz Bell, RN [address] [place], [place] [id number] Director Enterprise Data [employer] Internal Medicine 05/19/22 SANTI Dimas at [place] [phone] (Work) Community Resource 09/27/19 Chief Passenger Ship Steward/Stewardess Relationship Specialty Start Date End Date Tameka Guzmán MD [address] [place], [place] [id number] PCP - General Internal Medicine 03/28/15 Heber Sullivan, RN Registered Nurse Transplant Center 09/24/19 Ileana Quiroga MD Primary Staff Physician Cardiology 11/28/18 Liz Bell RN [address] [place], [place] [id number] Director [employer] Data [employer] Internal Medicine 05/19/22 SANTI Dimas at [place] [phone] (Work) Community Resource 09/27/19 Chief Passenger Ship Steward/Stewardess Relationship Specialty Start Date End Date Tameka Guzmán MD [address] [place], [place] [id number] PCP - General Internal Medicine 03/28/15 Heber Sullivan, RN Registered Nurse Transplant Center 09/24/19 Ileana Quiroga MD Primary Staff Physician Cardiology 11/28/18 Liz Bell, RN [address] [place], [place] [id number] Director [employer] Data [employer] Internal Medicine 05/19/22 Judie at [place] [phone] (Work) Community Resource 09/27/19 Chief Passenger Ship Steward/Stewardess Relationship Specialty Start Date End Date Tameka Guzmán MD [address] [place], [place] [id number] PCP - General Internal Medicine 03/28/15 Heber Sullivan, RN Registered Nurse Transplant Center 09/24/19 Ileana Quiroga MD Primary Staff Physician Cardiology 11/28/18 Liz Bell, RN [address] [place], [place] [id number] Director [employer] Data [employer] Internal Medicine 05/19/22 Judie at [place] [phone] (Work) Community Resource 09/27/19 Chief Passenger Ship Steward/Stewardess Relationship Specialty Start Date End Date Tameka Guzmán MD [address] [place] [address] PCP - General Internal Medicine 03/28/15 Heber Sullivan, RN Registered Nurse Transplant Center 09/24/19 Ileana Quiroga MD Primary Staff Physician Cardiology 11/28/18 Liz Bell, RN [address] [place], [place] [phone] Director [employer] Data Architecture Internal Medicine 05/19/22 Judie at [place] [phone] (Work) Community Resource 09/27/19 Chief Passenger Ship Steward/Stewardess Relationship Specialty Start Date End Date Tameka Guzmán MD [address] [place], [place] [address] PCP - General Internal Medicine 03/28/15 Heber Sullivan, RN Registered Nurse Transplant Center 09/24/19 Ileana Quiroga MD Primary Staff Physician Cardiology 11/28/18 Lisa Diamond, machine specialistDirector [employer] Data [employer] 05/19/22 SANTI Dimas at [facility] Community Resource 09/27/19 Chief Passenger Ship Steward/Stewardess Relationship Specialty Start Date End Date Tameka Guzmán MD [address] [place], [place] [id number] PCP - General Internal Medicine 03/28/15 Heber Sullivan, GILBERTO Registered Nurse Transplant Center 09/24/19 Ileana Quiroga MD Primary Staff Physician Cardiology 11/28/18 Lisa Diamond, machine specialistDirector [employer] Data [employer] 05/19/22 SANTI Dimas at [facility] Community Resource 09/27/19 Chief Passenger Ship Steward/Stewardess Relationship Specialty Start Date End Date Tameka Guzmán MD [address] [place] [address] PCP - General Internal Medicine 03/28/15 Heber Sullivan, GILBERTO Registered Nurse Transplant Center 09/24/19 Ileana Quiroga MD Primary Staff Physician Cardiology 11/28/18 iLsa Diamond, machine specialistDirector [employer] Data [employer] 07/11/22 SANTI Dimas at [facility] Community Resource 09/27/19 Chief Passenger Ship Steward/Stewardess Relationship Specialty Start Date End Date Tameka Guzmán MD [address] [facility] [address] PCP - General Internal Medicine 03/28/15 Heber Sullivan, RN Registered Nurse Transplant Center 09/24/19 Ileana Quiroga MD Primary Staff Physician Cardiology 11/28/18 Lisa Diamond, machine specialistDirector [employer] Data [employer] 07/11/22 SANTI Dimas at [facility] Community Resource 09/27/19 Chief Passenger Ship Steward/Stewardess Relationship Specialty Start Date End Date Tameka Guzmán MD [address] [facility], [place] [id number] PCP - General Internal Medicine 03/28/15 Heber Sullivan, GILBERTO Registered Nurse Transplant Center 09/24/19 Ileana Quiroga MD Primary Staff Physician Cardiology 11/28/18 Lisa Diamond, machine specialistDirector [employer] 07/11/22 SANTI Dimas at [facility] Community Resource 09/27/19 Chief Passenger Ship Steward/Stewardess Relationship Specialty Start Date End Date Tameka Guzmán MD [address] [facility], [place] [id number] PCP - General Internal Medicine 03/28/15 Ileana Quiroga MD [address] [facility], [place] [id number] Primary Staff Physician Cardiology 11/28/18 Lisa Diamond, machine specialistDirector [employer] Data [employer] 07/11/22 Bari Avendaño PA-C [address] [place] [address] Transplant Center 09/17/22 SANTI Dimas at [facility] Community Resource 09/27/19 Chief Passenger Ship Steward/Stewardess Relationship Specialty Start Date End Date Tameka Guzmán MD [address] [facility], [place] [id number] PCP - General Internal Medicine 03/28/15 Ileana Quiroga MD [address] [facility] [address] Primary Staff Physician Cardiology 11/28/18 Lisa Diamond, machine specialistDirector [employer] 07/11/22 Bari Avendaño PA-C [address] [place], [place] [id number] Transplant Center 09/17/22 SANTI Dimas at [facility] Community Resource 09/27/19 Chief Passenger Ship Steward/Stewardess Relationship Specialty Start Date End Date Tameka Guzmán MD [address] [place] [address] PCP - General Internal Medicine 03/28/15 Ileana Quiroga MD [address] [place] [address] Primary Staff Physician Cardiology 11/28/18 Lisa Diamond, machine specialistDirector [employer] 07/11/22 Bari Avendaño PA-C [address] [place], [place] [id number] Transplant Center 09/17/22 SANTI Dimas at [facility] Community Resource 09/27/19 Chief Passenger Ship Steward/Stewardess Relationship Specialty Start Date End Date Tameka Guzmán MD [address] [place] [address] PCP - General Internal Medicine 03/28/15 Ileana Quiroga MD [address] [facility] [address] Primary Staff Physician Cardiology 11/28/18 Lisa Diamond, machine specialistDirector [employer] 07/11/22 Bari Avendaño PA-C [address] [place], [place] [address] Transplant Center 09/17/22 SANTI Dimas at [facility] Community Resource 09/27/19 Chief Passenger Ship Steward/Stewardess Relationship Specialty Start Date End Date Tameka Guzmán MD [address] [facility] [address] PCP - General Internal Medicine 03/28/15 Ileana Quiroga MD [address] [facility] [address] Primary Staff Physician Cardiology 11/28/18 Lisa Diamond, machine specialistDirector [employer] 07/11/22 Bari Avendaño PA-C [address] [place], [place] [id number] Transplant Center 09/17/22 SANTI Dimas at [facility] Community Resource 09/27/19 Chief Passenger Ship Steward/Stewardess Relationship Specialty Start Date End Date Tameka Guzmán MD [address] [facility] [address] PCP - General Internal Medicine 03/28/15 Ileana Quiroga MD [address] [facility] [address] Primary Staff Physician Cardiology 11/28/18 Lisa Diamond, machine specialistDirector [employer] 07/11/22 Bari Avendaño PA-C [address] [place] [address] Transplant Center 09/17/22 SANTI Dimas at [facility] Community Resource 09/27/19 Chief Passenger Ship Steward/Stewardess Relationship Specialty Start Date End Date Tameka Guzmán MD [address] [facility] [address] PCP - General Internal Medicine 03/28/15 Ileana Quiroga MD [address] [facility], [place] [id number] Primary Staff Physician Cardiology 11/28/18 Lisa Diamond, machine specialistDirector [employer] 07/11/22 Bari Avendaño PA-C [address] [place], [place] 7507995 Transplant Center 09/17/22 SANTI Dimas at [facility] Community Resource 09/27/19 Chief Passenger Ship Steward/Stewardess Relationship Specialty Start Date End Date Tameka Guzmán MD [address] [place], [place] [id number] PCP - General Internal Medicine 03/28/15 Ileana Quiroga MD [address] [place] [address] Primary Staff Physician Cardiology 11/28/18 Lisa Diamond, machine specialistDirector [employer] 07/11/22 Bari Avendaño PA-C [address] [place], [place] [id number] Transplant Center 09/17/22 SANTI Dimas at [facility] Community Resource 09/27/19 Chief Passenger Ship Steward/Stewardess Relationship Specialty Start Date End Date Tameka Guzmán MD [address] [place] [address] PCP - General Internal Medicine 03/28/15 Ileana Quiroga MD [address] [place] [address] Primary Staff Physician Cardiology 11/28/18 Bari Avendaño PA-C [address] [place], [place] [id number] Transplant Center 09/17/22 Estephania Bill RN [address] [place] [address] Director [employer] 02/15/23 SANTI Dimas at [place] [phone] (Work) Community Resource 09/27/19 Chief Passenger Ship Steward/Stewardess Relationship Specialty Start Date End Date Tameka Guzmán MD [address] [place] [address] PCP - General Internal Medicine 03/28/15 Ileana Quiroga MD [address] [place] [address] Primary Staff Physician Cardiology 11/28/18 Bari Avendaño PA-C [address] [place] [address] Transplant Center 09/17/22 Estephania Bill, RN [address] [place], [place] [id number] Director [employer] Data [employer] 02/15/23 SANTI Dimas at [place] [phone] (Work) Community Resource 09/27/19 Chief Passenger Ship Steward/Stewardess Relationship Specialty Start Date End Date Tameka Guzmán MD [address] [place] [address] PCP - General Internal Medicine 03/28/15 Ileana Quiroga MD [address] [place] [address] Primary Staff Physician Cardiology 11/28/18 Bari Avendaño PA-C [address] [place] [address] Transplant Center 09/17/22 Estephania Bill, RN [address] [place], [place] [id number] Director Enterprise Data Architecture 02/15/23 SANTI Dimas at [phone] (Work) Community Resource 09/27/19 Chief Passenger Ship Steward/Stewardess Relationship Specialty Start Date End Date Tameka Guzmán MD [address] [place] [address] PCP - General Internal Medicine 03/28/15 Ileana Quiroga MD [address] [place] [address] Primary Staff Physician Cardiology 11/28/18 Bari Avendaño PA-C [address] [place], [place] [id number] Transplant Center 09/17/22 Estephania Bill RN [address] [place] [address] Director Enterprise Data Architecture 02/15/23 SANTI Dimas at [phone] (Work) Community Resource 09/27/19 Chief Passenger Ship Steward/Stewardess Relationship Specialty Start Date End Date Tameka Guzmán MD [address] [place] [address] PCP - General Internal Medicine 03/28/15 Ileana Quiroga MD [address] [place] [address] Primary Staff Physician Cardiology 11/28/18 Bari Avendaño PA-C [address] [place] [address] Transplant Center 09/17/22 Estephania Bill RN [address] [place] [address] Director Enterprise Data Architecture 02/15/23 SANTI Dimas at [facility] Community Resource 09/27/19 Chief Passenger Ship Steward/Stewardess Relationship Specialty Start Date End Date Tameka Guzmán MD [address] [place] [address] PCP - General Internal Medicine 03/28/15 Ileana Quiroga MD [address] [place] [address] Primary Staff Physician Cardiology 11/28/18 Bari Avendaño PA-C [address] [place] [address] Transplant Center 09/17/22 Estephania Bill RN [address] [place], [place] [id number] Director Enterprise Data Architecture 02/15/23 SANTI Dimas at [facility] Community Resource 09/27/19 Chief Passenger Ship Steward/Stewardess Relationship Specialty Start Date End Date Tameka Guzmán MD [address] [place] [address] PCP - General Internal Medicine 03/28/15 Ileana Quiroga MD [address] [place] [address] Primary Staff Physician Cardiology 11/28/18 Bari Avendaño PA-C [address] [place] [address] Transplant Center 09/17/22 Estephania Bill RN [address] [place] [address] Director Enterprise Data Architecture 02/15/23 SANTI Dimas at [facility] Community Resource 09/27/19 Chief Passenger Ship Steward/Stewardess Relationship Specialty Start Date End Date Tameka Guzmán MD [address] [place], [place] [address] PCP - General Internal Medicine 03/28/15 Ileana Quiroga MD [address] [place] [address] Primary Staff Physician Cardiology 11/28/18 Bari Avendaño PA-C [address] [place] [address] Transplant Center 09/17/22 Estephania Bill RN [address] [place], [place] [id number] Director Enterprise Data Architecture 02/15/23 SANTI Dimas at [facility] Community Resource 09/27/19 Chief Passenger Ship Steward/Stewardess Relationship Specialty Start Date End Date Tameka Guzmán MD [address] [place], [place] [address] PCP - General Internal Medicine 03/28/15 Ileana Quiroga MD [address] [place] [address] Primary Staff Physician Cardiology 11/28/18 Bari Avendaño PA-C [address] [place] [address] Transplant Center 09/17/22 Estephania Bill RN [address] [place] [address] Director Enterprise Data Architecture 02/15/23 SANTI Dimas at [facility] Community Resource 09/27/19 Chief Passenger Ship Steward/Stewardess Relationship Specialty Start Date End Date Tameka Guzmán MD [address] [place] [address] PCP - General Internal Medicine 03/28/15 Ileana Quiroga MD [address] [place] [address] Primary Staff Physician Cardiology 11/28/18 Bari Avendaño PA-C [address] [place] [address] Transplant Center 09/17/22 Estephania Bill RN [address] [place] [address] Director Enterprise Data Architecture 02/15/23 SANTI Dimas at [facility] Community Resource 09/27/19 Chief Passenger Ship Steward/Stewardess Relationship Specialty Start Date End Date Tameka Guzmán MD [address] [place], [place] [address] PCP - General Internal Medicine 03/28/15 Ileana Quiroga MD [address] [place] [address] Primary Staff Physician Cardiology 11/28/18 Bari Avendaño PA-C [address] [place] [address] Transplant Center 09/17/22 Estephania Bill RN [address] [place] [address] Director Enterprise Data Architecture 02/15/23 SANTI Dimas at [facility] Community Resource 09/27/19 Chief Passenger Ship Steward/Stewardess Relationship Specialty Start Date End Date Tameka Guzmán MD [address] [place], [place] [address] PCP - General Internal Medicine 03/28/15 Ileana Quiroga MD [address] [place] [address] Primary Staff Physician Cardiology 11/28/18 Bari Avendaño PA-C [address] [place] [place] [address] Transplant Center 09/17/22 Estephania Bill RN [address] [place] [address] Director Enterprise Data Architecture 02/15/23 SANTI Dimas at [facility] Community Resource 09/27/19 FOR RECORDS PERTAINING TO PATIENTS WHO ARE OR HAVE BEEN ENROLLED IN A CHEMICAL DEPENDENCY/SUBSTANCEABUSE PROGRAM, SOME INFORMATION MAY BE OMITTED. This clinical summary was aggregated from multiple sources. Caution should be exercised in using it in the provision of clinical care. This summary normalizes information from multiple sources, and as a consequence, information in this document may materially change the coding, format and clinical context of patient data. In addition, data may be omitted in some cases. CLINICAL DECISIONS SHOULD BE BASED ON THE PRIMARY CLINICAL RECORDS. [facility]. provides no warranty or guarantee of the accuracy or completeness of information in this document.
[2023-10-12] MEDS: Ondansetron 4 MG/2 ML Vial IV (18:02)
[2023-10-12] MEDS: 0.9% Normal Saline (1000mL) 1,000 ML 1000 ML IV (18:02)
[2023-10-12 18:04] LABS: Differential Indicated SCAN CRITERIA MET
--- NOTE | 2023-10-12 18:10 | RAD_ITS ---
STUDY: X-RAY CHEST REASON FOR EXAM: Female, 63 years old. cough TECHNIQUE: PA and lateral views of the chest. COMPARISON: None. FINDINGS: Alveolar opacity in the lower left lung consistent left lower lobe pneumonia. There is silhouetting left heart border may represent lingular pneumonia as well. There is no demonstrated pleural abnormality. There is moderate cardiac enlargement. Normal mediastinum and ambrosio. Normal visualized pulmonary arteries. Normal visualized aortic arch and descending thoracic aorta. Normal visualized thoracic spine. Normal visualized ribs, clavicles, and shoulders. There is no demonstrated abnormality of the visualized soft tissue structures of the upper abdomen. RAD/Chest PA and Lateral IMPRESSION: 1. Left lower lobe pneumonia with possibly lingular pneumonia. 2. Cardiomegaly. Electronically Signed: Elliot Marquez MD at 18:20 EST ,
[2023-10-12 18:11] LABS: Anion Gap 8 (5-15); BUN 31 mg/dL (7-18); BUN/Creat Ratio 12.2 RATIO (10-20); Calcium,Total 9.2 mg/dL (8.5-10.1); Chloride 110 mmol/L (98-107); Creatinine, Serum 2.55 mg/dL (0.55-1.02); EST Glomerular Filtration Rate 20 mL/min (>60); Est Glom Filt Rate - Afr Amer 24 mL/min (>60); Glucose 125 mg/dL (74-106); Potassium 3.8 mmol/L (3.5-5.1); Sodium Level 134 mmol/L (136-145)
[2023-10-12 18:41] LABS: AST(SGOT) 27 U/L (15-37); Alanine Aminotransfer ALT/SGPT 28 U/L (13-56); Albumin, Serum 2.8 g/dL (3.2-5.0); Alkaline Phosphatase 95 U/L (45-117); Bilirubin, Direct 0.28 mg/dL (0.00-0.30); Globulin 3.7 g/dL (2.2-4.2); Protein, Total 6.5 g/dL (6.4-8.2)
[2023-10-12 18:43] LABS: Differential Comment SCANNED
[2023-10-12 18:51] LABS: International Normalized Ratio 1.4; Prothrombin Time (Protime)PT. 17.1 SECONDS (11.7-14.9)
[2023-10-12 18:52] LABS: Partial Thromboplast Time 35.1 Seconds (24.1-36.2)
[2023-10-12 19:06] LABS: Procalcitonin 8.16 ng/mL (0.00-0.09)
--- NOTE | 2023-10-12 19:50 | CT_ITS ---
STUDY: CT ABDOMEN AND PELVIS WITHOUT CONTRAST REASON FOR EXAM: Female, 63 years old. rojelio RADIATION DOSAGE (If Supplied By Facility): CTDIvol = ( 6.83 ) mGy, DLP = ( 306.95 ) mGycm TECHNIQUE: Transaxial images were obtained from the dome of the diaphragm to the symphysis pubis without oral contrast, and without intravenous contrast. Sagittal and coronal images were reconstructed. Individualized dose optimization techniques were used for this CT. COMPARISON: None. FINDINGS: Dense alveolar density in the lower left lung consistent left lower lobe pneumonia. Small pericardial effusion. There is decreased attenuation of the liver consistent with steatosis. There is non-visualization of the gallbladder, which may be secondary to either contraction or a prior cholecystectomy. There are multiple benign calcified granulomata of the spleen. Normal pancreas. Normal bilateral adrenal glands. There is moderate cortical atrophy of the right kidney, consistent with chronic medical renal disease. There is severe cortical atrophy of the left kidney, consistent with chronic medical renal disease. Right pelvic renal transplant with moderate hydronephrosis and ureteral dilatation to the ureterovesical junction where there are multiple obstructing stones measuring 4 mm. Normal visualized stomach. Normal small intestine. There are multiple colonic diverticula consistent with diverticulosis. The appendix is visualized and appears normal. Normal abdominal aorta. Normal inferior vena cava. Normal retroperitoneum. Normal urinary bladder. Normal abdominal wall. Healed fracture of the right inferior pubic ramus. CT/Abdomen/Pelvis without Cont IMPRESSION: 1. Obstructing stones at the ureterovesical junction of the right pelvic renal transplant with mild ureteral dilatation and hydronephrosis with the largest stone measuring 4 mm. 2. Left lower lobe pneumonia. 3. Fatty infiltration of liver. 4. Sigmoid diverticulosis without diverticulitis. N.B. : The above Results were Read Back by Elliot Marquez MD to Kobi Vann DO, and understanding confirmed on 10/12/2023 21:09:21 (ET). Electronically Signed: Elliot Marquez MD at 21:12 EST ,
[2023-10-12] MEDS: levoFLOXacin IV 750 MG/150 ML BAG 100 MG IV (19:56)
[2023-10-12] MEDS: 0.9% Normal Saline (1000mL) 1,000 ML 100 ML IV (19:56)
[2023-10-12 20:06] LABS: Bacteria 0 SEEN /hpf (None Seen); Mucous, Urine 0 SEEN /hpf (<or=2+); Squamous Epithelial Cells - UA 0 SEEN /hpf (5-10)
[2023-10-12 20:07] LABS: Color, Urine Yellow (Yellow); Glucose, Dipstick 250 mg/dl (Normal); Ketone-Dipstick 15 mg/dl (Negative); Leukocyte Esterase-Dipstick Negative /ul (Negative); Nitrite-Dipstick Negative (Negative); Occult Blood-Urine 150 /ul (Negative); Protein-Dipstick 500 mg/dl (Negative); Urine Bilirubin Dipstick Negative (Negative); Urine Clarity Clear (Clear); Urine Urobilinogen Normal (Normal); Urine pH 6.5 (5.0 - 8.0)
[2023-10-12 20:12] LABS: Red Blood Cells-Urine 0-5 SEEN /hpf (0-5); White Blood Cells 5-10 SEEN /hpf (0-5)
[2023-10-12 20:30] LABS: Allen Test Positive; Base Excess -13 mmol/L (-2 to +2); Bicarbonate 12.8 mmol/L (22-26); Blood Gas Specimen Type ART; Mode Not entered; O2 Delivery Device Cannula; PO2 64 mmHG (75-100); SITE L Radial; SO2 91 % (95-99); Total Carbon Dioxide 14 mmol/L; pH 7.32 (7.35-7.45)
[2023-10-12 21:32] LABS: Anion Gap 6 (5-15); BUN 30 mg/dL (7-18); BUN/Creat Ratio 12.6 RATIO (10-20); Calcium,Total 8.4 mg/dL (8.5-10.1); Chloride 115 mmol/L (98-107); Creatinine, Serum 2.39 mg/dL (0.55-1.02); EST Glomerular Filtration Rate 22 mL/min (>60); Est Glom Filt Rate - Afr Amer 26 mL/min (>60); Estimated Creatinine Clearance 16.86 ml/min; Glucose 159 mg/dL (74-106); Potassium 3.8 mmol/L (3.5-5.1); Sodium Level 139 mmol/L (136-145)
[2023-10-12] MEDS: Vancomycin HCl 1,250 MG in 0.9% Normal Saline (250mL Bag) 250 ML 167 MG IV (22:08)
[2023-10-12 22:29] LABS: Reflex Lactate? Y
[2023-10-12 23:09] LABS: Lactic Acid 1.3 mmol/L (0.4-1.9)
[2023-10-13] VITALS: BP 119/73
[2023-10-13 00:10] VITALS: PULSE 110; RESP 26; O2SAT 91
[2023-10-13 01:00] VITALS: BP 119/66; PULSE 109; RESP 26; O2SAT 92
--- NOTE | 2023-10-13 01:48 | ED.RN ---
[facility] transfer line calls with bed number at [facility] main G101 bed 11. Physicans called for transport and gave 2-3 hour ETA.
[2023-10-13 02:11] VITALS: BP 119/66; PULSE 107; RESP 28; TEMP 36.4; O2SAT 91
--- NOTE | 2023-10-13 02:16 | ED.RN ---
Report given to RN at [facility] in [place].
[2023-10-13 03:00] VITALS: BP 110/58; PULSE 105; RESP 24; O2SAT 95
== END 2023-10-13 04:08 | disposition short-term general hospital (02) ==
PROVIDERS: Internal Medicine; Emergency Provider Emergency Medicine; PCP Internal Medicine; Visit Provider Emergency Medicine
DX: A41.9 Sepsis, unspecified organism (principal); N17.9 Acute kidney failure, unspecified; E11.42 Type 2 diabetes mellitus with diabetic polyneuropathy; E11.22 Type 2 diabetes mellitus with diabetic chronic kidney disease; N18.30 Chronic kidney disease, stage 3 unspecified; R09.02 Hypoxemia; R19.7 Diarrhea, unspecified; N13.2 Hydronephrosis with renal and ureteral calculous obstruction; Z79.82 Long term (current) use of aspirin; Z79.899 Other long term (current) drug therapy; Z94.0 Kidney transplant status; K57.30 Diverticulosis of large intestine without perforation or abscess without bleeding; K76.0 Fatty (change of) liver, not elsewhere classified; J18.9 Pneumonia, unspecified organism
CPT/HCPCS: 36600; 71046; 74176; 80048; 80076; 81001; 82803; 83605; 84145; 85025; 85610; 85730; 87040; 87086; 87088; 87631; 96361; 96365; 96366; 96367; 96375; 99285; J7030; J7050; A4216; J2405

== ENCOUNTER 2023-11-27 16:10 | Emergency (ER) | payer BC, MEDICAID, SELFPAY ==
[2023-11-27 16:10] VITALS: BP 139/78; PULSE 81; RESP 16; TEMP 36.5; O2SAT 98; BMI 31.8
[2023-11-27 16:13] VITALS: BP 112/79; PULSE 68; RESP 14; TEMP 36.6; O2SAT 99
[2023-11-27 16:14] VITALS: BP 124/79; PULSE 89; RESP 18; TEMP 36.7; O2SAT 99
--- NOTE | 2023-11-27 17:05 | EX.ED.DYSGE1 ---
HPI <MADISON Durand - Last Filed: 11/27/23 18:42> History of Present Illness Chief Complaint: Wound Check Narrative Narrative: Patient has history of renal transplant at age 60 and is on immunosuppressants. She is here for an abdominal wound check. At the end of September 2023 she was diagnosed with pneumonia and a CT scan showed obstructive uropathy from kidney stones. She was transferred to [facility]. She states they placed a a right-sided nephrostomy tube into her abdomen where her right kidney transplant is. The stones passed and she states she never really had pain. 2 days ago she followed up with the urologist at [facility] and they injected dye into the tube and things look clear so they pulled it out. Today she remove the bandage as instructed and noticed the skin looked red. 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, 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 Home Medications amlodipine 5 mg tablet 5 mg PO DAILY BLOOD PRESSURE 11/01/21 [History Last Taken Unknown] everolimus (immunosuppressive) 0.5 mg tablet 0.5 mg PO Q12H TRANSPLANT REJECTION PREVENTATIVE 11/01/21 [History Last Taken Unknown] glimepiride 1 mg tablet 1 mg PO DAILY BLOOD SUGARS 11/01/21 [History Last Taken Unknown] levothyroxine 50 mcg tablet 50 mcg PO DAILY THYROID 11/01/21 [History Last Taken Unknown] metformin 500 mg tablet 500 mg PO DAILY BLOOD SUGARS 11/01/21 [History Last Taken Unknown] omeprazole 20 mg capsule,delayed release 20 mg PO DAILY ACID REFLUX 11/01/21 [History Last Taken Unknown] pravastatin 40 mg tablet 40 mg PO DAILY CHOLESTEROL 11/01/21 [History Last Taken Unknown] prednisone 5 mg tablet 5 mg PO DAILY STEROID 11/01/21 [History Last Taken Unknown] tacrolimus 1 mg capsule, immediate-release 1 mg PO Q12H TRANSPLANT REJECTION PREVENTATIVE 11/01/21 [History Last Taken Unknown] aspirin 81 mg tablet,delayed release (Adult Aspirin Regimen) 81 mg PO DAILY HEART HEALTH 10/12/23 [History Last Taken Unknown] ergocalciferol (vitamin D2) 50 mcg (2,000 unit) capsule 50 mcg PO DAILY SUPPLEMENT 10/12/23 [History Last Taken Unknown] hydrocodone-acetaminophen 5-325mg 5mg-325mg 1 tab PO Q6H PRN PAIN 10/12/23 [History Last Taken Unknown] pantoprazole 40 mg tablet,delayed release 40 mg PO DAILY ACID REFLUX 10/12/23 [History Last Taken Unknown] amoxicillin 250 mg capsule 400 mg PO BID 11/27/23 [History Last Taken Unknown] sodium bicarbonate 650 mg tablet 650 mg PO 11/27/23 [History Last Taken Unknown] Allergy/AdvReac Type Severity Reaction Status Date / Time acetaminophen Allergy Hives Verified 10/12/23 16:09 [From Tylenol-Codeine #3] Cephalosporins Allergy Other Verified 10/12/23 16:16 codeine Allergy Hives Verified 10/12/23 16:09 [From Tylenol-Codeine #3] doxycycline Allergy Hives Verified 10/12/23 16:16 amoxicillin [From Augmentin] AdvReac Other Verified 10/12/23 16:09 clavulanic acid AdvReac Other Verified 10/12/23 16:09 [From Augmentin] Penicillins AdvReac Other Verified 10/12/23 16:09 Sulfa (Sulfonamide AdvReac Rash Verified 10/12/23 16:09 Antibiotics) Surgical History Kidney transplant status Social History household members: spouse Smoking Status: Never smoker substance use type: does not use ROS <MADISON Durand - Last Filed: 11/27/23 18:42> ROS ED ROS Narrative Constitutional: Negative for fever, chills. Skin: Positive for redness. EXAM <MADISON uDrand - Last Filed: 11/27/23 18:42> Physical Exam Narrative Exam Narrative: CONST: Patient sitting in no acute distress. EYES: Normal inspection. NECK: Normal inspection. RESP: No respiratory distress, CTAB. CVS: Regular rate and rhythm, no murmur, no gallop. ABD: Soft and nontender, no guarding or rebound, nondistended. SKIN: Localized erythema and slight warmth on right lower abdomen over area where she had previous to place. The skin has fully closed in this area. There is no fluctuance or crepitus. No lymphangitic streaking. EXTREMITIES: Normal appearance. NEURO: Alert and answering questions appropriately. PSYCH: Normal affect. Const Vital Signs: 11/27/23 16:10 11/27/23 16:13 11/27/23 16:14 Temperature 97.7 F L 97.8 F 98.1 F Temperature Source Temporal Temporal Oral Pulse Rate 81 68 89 Respiratory Rate 16 14 18 Blood Pressure 139/78 H 112/79 124/79 H Blood Pressure Mean 98 90 94 Pulse Ox 98 99 99 Oxygen Delivery Method Room Air Room Air Room Air 11/27/23 17:14 11/27/23 18:00 11/27/23 18:40 Temperature 97.8 F 98.7 F 98.2 F Temperature Source Oral Temporal Pulse Rate 69 66 67 Respiratory Rate 14 18 18 Blood Pressure 146/91 H 135/66 H 142/70 H Blood Pressure Mean 109 89 94 Pulse Ox 99 100 100 Oxygen Delivery Method Room Air Room Air <Dr. Jame Suazo DO - Last Filed: 11/27/23 19:39> Physical Exam Const Vital Signs: 11/27/23 16:10 11/27/23 16:13 11/27/23 16:14 Temperature 97.7 F L 97.8 F 98.1 F Temperature Source Temporal Temporal Oral Pulse Rate 81 68 89 Respiratory Rate 16 14 18 Blood Pressure 139/78 H 112/79 124/79 H Blood Pressure Mean 98 90 94 Pulse Ox 98 99 99 Oxygen Delivery Method Room Air Room Air Room Air 11/27/23 17:14 11/27/23 18:00 11/27/23 18:40 Temperature 97.8 F 98.7 F 98.2 F Temperature Source Oral Temporal Pulse Rate 69 66 67 Respiratory Rate 14 18 18 Blood Pressure 146/91 H 135/66 H 142/70 H Blood Pressure Mean 109 89 94 Pulse Ox 99 100 100 Oxygen Delivery Method Room Air Room Air MDM <MADISON Durand - Last Filed: 11/27/23 18:42> [facility] Narrative Medical decision making narrative: Patient had a right lower abdominal nephrostomy tube removed 2 days ago and after taking off the bandage today noticed the skin looked red. There is a small area of erythema that she is already outlined in pen. She states it was the area under the bandage. It is very minimally warm. There is no fluctuance or crepitus. There is no open wound or drainage. I suspect this is either a skin reaction to the bandage adhesive or early cellulitis. She has no fever or signs of systemic illness. She is still taking Avelox from her recent medical procedures and this should cover skin infections. She has follow-up with her physician tomorrow who can reevaluate the area. She was comfortable with this plan and discharged in stable condition. I have personally performed a face to face assessment of the patient and have reviewed the PAMELA Note. I performed a substantive portion of the visit including all aspects of the following. My alberto findings include: History is 63-year-old female presenting to the emergency room with a rash on her right lower abdomen. Patient recently Exam is [ ] Medical Decison Making [ ] Other additions or changes: [None] <Dr. Jame Suazo DO - Last Filed: 11/27/23 19:39> [facility] Narrative Medical decision making narrative: Patient had a right lower abdominal nephrostomy tube removed 2 days ago and after taking off the bandage today noticed the skin looked red. There is a small area of erythema that she is already outlined in pen. She states it was the area under the bandage. It is very minimally warm. There is no fluctuance or crepitus. There is no open wound or drainage. I suspect this is either a skin reaction to the bandage adhesive or early cellulitis. She has no fever or signs of systemic illness. She is still taking Avelox from her recent medical procedures and this should cover skin infections. She has follow-up with her physician tomorrow who can reevaluate the area. She was comfortable with this plan and discharged in stable condition. I have personally performed a face to face assessment of the patient and have reviewed the PAMELA Note. I performed a substantive portion of the visit including all aspects of the following. My alberto findings include: History is 63-year-old female presenting to the emergency room with a rash on her right lower abdomen. Patient recently was in the hospital a drain in the right lower quadrant. States she got a stent in her bladder. Patient noticed some redness over underneath the bandage site. She has been on Avelox for 21 days and has an additional 7 more days to go Exam is there is an area of slight erythema as well as skin flaking the right lower quadrant as outlined by pen. Is not hot or swollen. Seems more consistent with allergic reaction to medical gauze or tape. Medical Decison Making patient is already on Avelox. To me this looks more like allergic reaction. She is already remove the offending agent. Would recommend gentle soap and water. She may try a hydrocortisone cream once a day but honestly I think just by removing the offending agent should be curative. History & Record Review Discussion w/independent historian: Patient Discharge Plan Triage Chief Complaint: Wound Check ED Midlevel Provider: Ivory Vitale ED Provider: Jame Suazo Dx/Rx/DC Orders Clinical Impression: Abdominal wall cellulitis Instructions: Cellulitis Dc Prescriptions: No Action metformin 500 mg Tablet 500 mg PO DAILY pravastatin 40 mg Tablet 40 mg PO DAILY prednisone 5 mg Tablet 5 mg PO DAILY amlodipine 5 mg tablet 5 mg PO DAILY glimepiride 1 mg Tablet 1 mg PO DAILY levothyroxine 50 mcg Tablet 50 mcg PO DAILY omeprazole 20 mg Capsule,Delayed Release(Dr/Ec) 20 mg PO DAILY tacrolimus 1 mg Capsule 1 mg PO Q12H everolimus (immunosuppressive) 0.5 mg Tablet 0.5 mg PO Q12H hydrocodone-acetaminophen [hydrocodone-acetaminophen] 1 TABLET tablet 1 tab PO Q6H PRN (Reason: PAIN ) pantoprazole 40 mg tablet,delayed release (DR/EC) 40 mg PO DAILY aspirin [Adult Aspirin Regimen] 81 mg tablet,delayed release (DR/EC) 81 mg PO DAILY ergocalciferol (vitamin D2) 50 mcg (2,000 unit) capsule 50 mcg PO DAILY amoxicillin 250 mg capsule 400 mg PO BID sodium bicarbonate 650 mg tablet 650 mg PO Primary Care Provider: Tejal Calles Referrals: Tejal Calles MD [Primary Care Provider] - Activity Restrictions/Additional Instructions: Continue the Avelox antibiotic you are already taking and follow-up with your doctor to have them check the area this week. Disposition Disposition: Home, Self Care Discharge Date/Time: 11/27/23 18:40
[2023-11-27 17:14] VITALS: BP 146/91; PULSE 69; RESP 14; TEMP 36.6; O2SAT 99
[2023-11-27 18:00] VITALS: BP 135/66; PULSE 66; RESP 18; TEMP 37.1; O2SAT 100
[2023-11-27 18:40] VITALS: BP 142/70; PULSE 67; RESP 18; TEMP 36.8; O2SAT 100
== END 2023-11-27 18:40 | disposition home or self-care (01) ==
PROVIDERS: Emergency Provider Emergency Medicine; PCP Internal Medicine; Visit Provider Emergency Medicine
DX: L03.311 Cellulitis of abdominal wall (principal); Z93.6 Other artificial openings of urinary tract status; E11.22 Type 2 diabetes mellitus with diabetic chronic kidney disease; Z94.89 Other transplanted organ and tissue status; N18.9 Chronic kidney disease, unspecified; Z79.899 Other long term (current) drug therapy; Z79.84 Long term (current) use of oral hypoglycemic drugs; K21.9 Gastro-esophageal reflux disease without esophagitis
CPT/HCPCS: 99283; A4216

== ENCOUNTER 2024-09-01 19:45 | Observation (INO) | payer MEDICARE, MEDICAID, SELFPAY ==
[2024-09-01 19:46] VITALS: BP 143/86; PULSE 104; RESP 20; TEMP 37.3; O2SAT 94
--- NOTE | 2024-09-01 20:19 | EX.ED.DYSGE1 ---
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 Patient denies any blood in her stool or vomit. Patient did have a low-grade fever at home. She states has been unable to drink water because she has been feeling nauseous. 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 Home Medications ?Medication ?Instructions ?Recorded ?Last Taken ?Type amlodipine 5 mg tablet 5 mg PO DAILY BLOOD PRESSURE 11/01/21 Unknown History everolimus (immunosuppressive) 0.5 0.5 mg PO Q12H TRANSPLANT 11/01/21 Unknown History mg tablet REJECTION PREVENTATIVE glimepiride 1 mg tablet 1 mg PO DAILY BLOOD SUGARS 11/01/21 Unknown History levothyroxine 50 mcg tablet 50 mcg PO DAILY THYROID 11/01/21 Unknown History metformin 500 mg tablet 500 mg PO DAILY BLOOD SUGARS 11/01/21 Unknown History omeprazole 20 mg capsule,delayed 20 mg PO DAILY ACID REFLUX 11/01/21 Unknown History release pravastatin 40 mg tablet 40 mg PO DAILY CHOLESTEROL 11/01/21 Unknown History prednisone 5 mg tablet 5 mg PO DAILY STEROID 11/01/21 Unknown History tacrolimus 1 mg capsule, 1 mg PO Q12H TRANSPLANT REJECTION 11/01/21 Unknown History immediate-release PREVENTATIVE aspirin 81 mg tablet,delayed 81 mg PO DAILY HEART HEALTH 10/12/23 Unknown History release (Adult Aspirin Regimen) ergocalciferol (vitamin D2) 50 mcg 50 mcg PO DAILY SUPPLEMENT 10/12/23 Unknown History (2,000 unit) capsule hydrocodone-acetaminophen 5-325mg 1 tab PO Q6H PRN PAIN 10/12/23 Unknown History 5mg-325mg pantoprazole 40 mg tablet,delayed 40 mg PO DAILY ACID REFLUX 10/12/23 Unknown History release amoxicillin 250 mg capsule 400 mg PO BID 11/27/23 Unknown History Allergy/AdvReac Type Severity Reaction Status Date / Time acetaminophen (From Allergy Hives Verified 10/12/23 16:09 Tylenol-Codeine #3) Cephalosporins Allergy Other Verified 10/12/23 16:16 codeine (From Allergy Hives Verified 10/12/23 16:09 Tylenol-Codeine #3) doxycycline Allergy Hives Verified 10/12/23 16:16 amoxicillin (From Augmentin) AdvReac Other Verified 10/12/23 16:09 clavulanic acid (From AdvReac Other Verified 10/12/23 16:09 Augmentin) Penicillins AdvReac Other Verified 10/12/23 16:09 Sulfa (Sulfonamide AdvReac Rash Verified 10/12/23 16:09 Antibiotics) Surgical History Kidney transplant status Social History household members: spouse Smoking Status: Never smoker substance use type: does not use ROS <THEO Marx - Last Filed: 09/01/24 22:16> ROS ED ROS Narrative Constitutional: Negative for fever, chills, weight loss. Positive for weakness Eyes: Negative for vision loss, vision change, double vision ENT: Negative for any sore throat, ear pain, congestion Cardiovascular: Negative for any chest pain, tightness, palpitations Respiratory: Negative for any hemoptysis, dyspnea, dyspnea on exertion, orthopnea. Positive cough, sputum production Gastrointestinal: Negative for any abdominal pain, diarrhea, constipation, blood in stool, blood in vomit. Positive for nausea and vomiting : Negative for any urinary frequency, dysuria, retention, blood in urine Muscle skeletal: Negative for any neck pain, back pain Neurological: Negative for any headache, syncope, dizziness Skin: Negative for any rashes, itching, abrasions, lacerations Psychiatric: Negative for any depression, anxiety, stress, suicidal ideation, homicidal ideation Hematologic: Negative for any excessive bruising, easy bleeding EXAM <THEO Marx - Last Filed: 09/01/24 22:16> Physical Exam Narrative Exam Narrative: Vital signs reviewed. HEET: Head normocephalic atraumatic, TMs clear bilaterally. Posterior pharynx is clear, dry mucous membranes. Nares clear bilaterally. Neck: Supple with no lymphadenopathy or tenderness. No signs of meningismus. Cardiac: Regular rate and rhythm no murmurs gallops or rubs, equal peripheral pulses bilaterally. Respiratory: Rhonchorous breath sounds of bilateral lower lobes. No chest tenderness. Abdomen: Soft, nontender, nondistended. No abdominal bruit or pulsatile masses. No hepatosplenomegaly Extremities: No peripheral edema, no signs of gross trauma or deformity. Active full range of motion of all extremities. Neuro: Cranial nerves II through XII intact, no focal neurological deficits. Skin: Clean dry and intact with no rash, purpura, petechiae, vesicles or pustules. Backs/flank: No CVA tenderness, no midline spinal tenderness, no deformity. Psych: Normal mood and affect. No SI, HI or acute psychosis. Const Vital Signs: 09/01/24 19:46 09/01/24 20:36 09/01/24 20:49 Temperature 99.1 F 98.9 F Temperature Source Oral Axillary Pulse Rate 104 H 82 Respiratory Rate 20 H 18 Respiratory Effort Normal Non-Labored Respiratory Pattern Normal Blood Pressure 143/86 H 92/80 Blood Pressure Mean 105 84 Pulse Ox 94 98 Oxygen Delivery Method Room Air Room Air 09/01/24 21:46 09/01/24 22:04 Temperature 98.9 F Temperature Source Pulse Rate 84 Respiratory Rate 18 Respiratory Effort Respiratory Pattern Blood Pressure 92/80 124/88 H Blood Pressure Mean 84 100 Pulse Ox 99 Oxygen Delivery Method Positive unkempt General Appearance ED: unkempt Psych Appearance: unkempt <Alejandro Paz MD - Last Filed: 09/01/24 22:19> Physical Exam Const Vital Signs: 09/01/24 19:46 09/01/24 20:36 09/01/24 20:49 Temperature 99.1 F 98.9 F Temperature Source Oral Axillary Pulse Rate 104 H 82 Respiratory Rate 20 H 18 Respiratory Effort Normal Non-Labored Respiratory Pattern Normal Blood Pressure 143/86 H 92/80 Blood Pressure Mean 105 84 Pulse Ox 94 98 Oxygen Delivery Method Room Air Room Air 09/01/24 21:46 09/01/24 22:04 Temperature 98.9 F Temperature Source Pulse Rate 84 Respiratory Rate 18 Respiratory Effort Respiratory Pattern Blood Pressure 92/80 124/88 H Blood Pressure Mean 84 100 Pulse Ox 99 Oxygen Delivery Method MDM <Danis Adams NP-C - Last Filed: 09/01/24 22:16> [facility] Lab Data Labs: Laboratory Results - last 24 hr 09/01/24 09/01/24 20:10 21:10 WBC 24.8 H RBC 4.43 Hgb 12.9 Hct 38.9 MCV 87.8 MCH 29.1 MCHC 33.2 RDW Std Deviation 41.1 RDW Coeff of Sea 12.8 Plt Count 249 MPV 10.6 Neut % (Auto) Not Reportable Absolute Neuts (auto) 21.8 H Absolute Lymphs (auto) 0.24 L Total Counted 100 Neutrophils % (Manual) 80 H Band Neutrophils % 5 Lymphocytes % (Manual) 3 L Monocytes % (Manual) 6 Eosinophils % (Manual) 2 Metamyelocytes % 2 H Myelocytes % 2 H Diff Path Review May foll Toxic Granulation 2+ Platelet Estimate ADEQUATE Plt Morphology Comment LARGE Anisocytosis 1+ Sodium 139 Potassium 3.7 Chloride 109 H Carbon Dioxide 24.0 Anion Gap 6 BUN 27 H Creatinine 1.95 H Est GFR (MDRD) Af Amer 33 L Est GFR (MDRD) Non-Af 27 L BUN/Creatinine Ratio 13.8 Glucose 188 H Calcium 9.9 Total Bilirubin 0.40 AST 34 ALT 34 Alkaline Phosphatase 77 Total Protein 6.6 Albumin 3.3 Globulin 3.3 Albumin/Globulin Ratio 1.0 Lipase 18 Urine Color Yellow Urine Clarity Sl. Cloudy Urine pH 6.0 Ur Specific [place] 1.015 Urine Protein 100 H Urine Glucose (UA) 250 H Urine Ketones 15 H Urine Occult Blood 150 H Urine Nitrite Negative Urine Bilirubin Negative Urine Urobilinogen Normal Ur Leukocyte Esterase Negative Urine RBC 5-10 SEEN Urine WBC 0-5 SEEN Ur Squamous Epith Cells 0-5 SEEN Urine Bacteria 2+ Hyaline Casts 0-5 SEEN Urine Mucus 1+ Radiography Diagnostic Testing: Clinical Impression(s) from Imaging Studies Chest X-Ray 09/01/24 20:35 IMPRESSION: 1. Diffuse interstitial infiltrate/pneumonia at the RIGHT lung base. Remaining lung zones are clear. 2. Scattered granulomatous changes and stable nodule in RIGHT midlung. Electronically Signed: Elliot Good MD at 21:56 EST , Treatment and Re-Evaluation :: Differential diagnosis includes however is not limited to: COVID-19, influenza, RSV, pneumonia, electrolyte abnormality, MAXIMO Patient appears generally well, vital signs are stable, patient is nontoxic-appearing. Patient does have a low-grade fever, patient physical examination does look dry. Presenting to the emergency department for coughing for 2 to 3 days, nausea and vomiting starting today. Patient will receive a two-view chest x-ray, laboratory values, IV fluids Zofran as well as oral Tylenol. All radiologic examinations were read, reviewed by the emergency department attending. COVID-19, influenza, RSV swab will be obtained. from these reads, a plan of care will be put in place. Patient CBC shows a leukocytosis with white blood count 24.8, patient's chemistries show creatinine 1.95, this is better than baseline. Glucose 188, lipase of 18. Patient's chest x-ray shows diffuse interstitial infiltrate/pneumonia of the right lung base. Scattered granulomatous changes and stable nodule in the right midlung. Patient's urinalysis was negative for any infection. At this time, second of the patient's comorbidities, leukocytosis, patient will be admitted to the hospital for IV antibiotics for community-acquired pneumonia. Spoke with the hospitalist, patient stable for admission <Alejandro Paz MD - Last Filed: 09/01/24 22:19> [facility] MDM Narrative Medical decision making narrative: Dr. Paz: I have personally performed a face to face assessment of the patient and have reviewed the PAMELA Note. I performed a substantive portion of the visit including all aspects of the following. My alberto findings include: History is cough, nausea and vomiting. History of pneumonia earlier this year. Exam is afebrile. Vital signs noted. Nontoxic-appearing. Decreased breath sounds right base. No respiratory distress, no accessory muscle use. Cardiovascular examination regular rate and rhythm currently. Medical Decision Making: Check labs. Check chest x-ray. Chest x-ray interpreted by myself independently shows right lower lobe pneumonia. Given leukocytosis, initial tachycardia, and history of chronic kidney disease with vomiting, patient discussed with hospitalist for admission. Other additions or changes: IV antibiotics. History & Record Review Discussion w/independent historian: Patient Lab Data Attestation: I reviewed the patient's lab results. Labs: Laboratory Results - last 24 hr 09/01/24 09/01/24 20:10 21:10 WBC 24.8 H RBC 4.43 Hgb 12.9 Hct 38.9 MCV 87.8 MCH 29.1 MCHC 33.2 RDW Std Deviation 41.1 RDW Coeff of Sea 12.8 Plt Count 249 MPV 10.6 Neut % (Auto) Not Reportable Absolute Neuts (auto) 21.8 H Absolute Lymphs (auto) 0.24 L Total Counted 100 Neutrophils % (Manual) 80 H Band Neutrophils % 5 Lymphocytes % (Manual) 3 L Monocytes % (Manual) 6 Eosinophils % (Manual) 2 Metamyelocytes % 2 H Myelocytes % 2 H Diff Path Review May foll Toxic Granulation 2+ Platelet Estimate ADEQUATE Plt Morphology Comment LARGE Anisocytosis 1+ Sodium 139 Potassium 3.7 Chloride 109 H Carbon Dioxide 24.0 Anion Gap 6 BUN 27 H Creatinine 1.95 H Est GFR (MDRD) Af Amer 33 L Est GFR (MDRD) Non-Af 27 L BUN/Creatinine Ratio 13.8 Glucose 188 H Calcium 9.9 Total Bilirubin 0.40 AST 34 ALT 34 Alkaline Phosphatase 77 Total Protein 6.6 Albumin 3.3 Globulin 3.3 Albumin/Globulin Ratio 1.0 Lipase 18 Urine Color Yellow Urine Clarity Sl. Cloudy Urine pH 6.0 Ur Specific [place] 1.015 Urine Protein 100 H Urine Glucose (UA) 250 H Urine Ketones 15 H Urine Occult Blood 150 H Urine Nitrite Negative Urine Bilirubin Negative Urine Urobilinogen Normal Ur Leukocyte Esterase Negative Urine RBC 5-10 SEEN Urine WBC 0-5 SEEN Ur Squamous Epith Cells 0-5 SEEN Urine Bacteria 2+ Hyaline Casts 0-5 SEEN Urine Mucus 1+ Radiography Chest X-Ray - ED: Read by ED Physician and Right Infiltrate Diagnostic Testing: Clinical Impression(s) from Imaging Studies Chest X-Ray 09/01/24 20:35 IMPRESSION: 1. Diffuse interstitial infiltrate/pneumonia at the RIGHT lung base. Remaining lung zones are clear. 2. Scattered granulomatous changes and stable nodule in RIGHT midlung. Electronically Signed: Elliot Good MD at 21:56 EST , Management Discussion w/another healthcare provider: Hospitalist Discharge Plan Dx/Rx/DC Orders Clinical Impression: Community acquired pneumonia, Nausea & vomiting Disposition Disposition: Acute Care Hospital [facility]
[2024-09-01] MEDS: Ondansetron 4 MG/2 ML Vial IV (20:21)
[2024-09-01] MEDS: Acetaminophen 500 MG Tablet 1000 MG PO (20:21)
[2024-09-01] MEDS: 0.9% Normal Saline (1000mL) 1,000 ML 999 ML IV (20:22)
[2024-09-01 20:29] LABS: Hematocrit 38.9 % (37-47); Hemoglobin 12.9 g/dL (12.0-15.0); Mean Corp Hgb Conc 33.2 g/dL (32-36); Mean Corpuscular Hgb 29.1 pg (27.0-32.0); Mean Corpuscular Volume 87.8 fL (81-99); Mean Platelet Vol. 10.6 fl (6.2-12.0); POSITIVE DIFFERENTIAL YES; POSITIVE MORPHOLOGY YES; Platelet Count 249 K/mm3 (150-450); RBC Distribution Width CV 12.8 % (11.6-14.6); RBC Distribution Width SD 41.1 fl (35.1-43.9); Red Blood Count 4.43 M/mm3 (4.2-5.4); White Blood Count 24.8 K/mm3 (4.4-11.0)
--- NOTE | 2024-09-01 20:35 | RAD_ITS ---
INDICATION: cough EXAMINATION/TECHNIQUE: X-RAY - XR Chest 2 Views COMPARISON: 10/12/2023, and 05/26/2005 FINDINGS: LIFE-SUPPORT AND LINES: 1. None HEART AND VESSELS: The cardiac silhouette, pulmonary vasculature have normal appearance. No evidence of congestive failure. LUNGS AND PLEURAL SPACES: Diffuse interstitial and groundglass infiltrate/pneumonia at the RIGHT lung base. Remaining lung zones are clear. Scattered granulomatous changes are present. There is a small nodule in the RIGHT midlung measuring approximately 5 mm without significant change. MEDIASTINUM AND HILAR REGIONS: No masses adenopathy noted. No areas of calcification. Visualized upper airway is normal in position. BONY ELEMENTS: No acute bony changes noted. RAD/Chest PA and Lateral IMPRESSION: 1. Diffuse interstitial infiltrate/pneumonia at the RIGHT lung base. Remaining lung zones are clear. 2. Scattered granulomatous changes and stable nodule in RIGHT midlung. Electronically Signed: Elliot Good MD at 21:56 EST ,
[2024-09-01 20:49] VITALS: BP 92/80; PULSE 82; RESP 18; TEMP 37.2; O2SAT 98
[2024-09-01 20:52] LABS: AST(SGOT) 34 U/L (15-37); Alanine Aminotransfer ALT/SGPT 34 U/L (13-56); Albumin, Serum 3.3 g/dL (3.2-5.0); Alkaline Phosphatase 77 U/L (45-117); Anion Gap 6 (5-15); BUN 27 mg/dL (7-18); BUN/Creat Ratio 13.8 RATIO (10-20); Calcium,Total 9.9 mg/dL (8.5-10.1); Chloride 109 mmol/L (98-107); Creatinine, Serum 1.95 mg/dL (0.55-1.02); EST Glomerular Filtration Rate 27 mL/min (>60); Est Glom Filt Rate - Afr Amer 33 mL/min (>60); Globulin 3.3 g/dL (2.2-4.2); Glucose 188 mg/dL (74-106); Lipase 18 U/L (13-75); Potassium 3.7 mmol/L (3.5-5.1); Protein, Total 6.6 g/dL (6.4-8.2); Sodium Level 139 mmol/L (136-145)
[2024-09-01 21:17] LABS: Color, Urine Yellow (Yellow); Glucose, Dipstick 250 mg/dl (Normal); Ketone-Dipstick 15 mg/dl (Negative); Leukocyte Esterase-Dipstick Negative /ul (Negative); Nitrite-Dipstick Negative (Negative); Occult Blood-Urine 150 /ul (Negative); Protein-Dipstick 100 mg/dl (Negative); Specific Gravity, Urine 1.015 (1.002-1.030); Urine Bilirubin Dipstick Negative (Negative); Urine Clarity Sl. Cloudy (Clear); Urine Urobilinogen Normal (Normal)
[2024-09-01 21:26] LABS: Differential Indicated MANUAL DIFF
[2024-09-01 21:28] LABS: Bacteria 2+ /hpf (None Seen); Hyaline Cast 0-5 SEEN /lpf (0-5); Mucous, Urine 1+ /hpf (<or=2+); Red Blood Cells-Urine 5-10 SEEN /hpf (0-5); Squamous Epithelial Cells - UA 0-5 SEEN /hpf (5-10); White Blood Cells 0-5 SEEN /hpf (0-5)
[2024-09-01 21:34] LABS: Anisocytosis 1+; Eosinophil 2 % (0-5); Lymphocyte 3 % (19-41); Metamyelocyte 2 % (0-1); Monocyte 6 % (0-10); Myelocyte 2 % (0-0); Neutrophil-Band 5 % (0-5); Neutrophil-Segmented 80 % (47-70); Platelet Morphology LARGE; Total Cells Counted 100 (MANUAL DIFF)
[2024-09-01 21:35] LABS: Platelet Estimate ADEQUATE (ADEQ)
[2024-09-01 21:38] LABS: Toxic Granulation 2+
[2024-09-01 21:39] LABS: Absolute Lymphocyte Count 0.24 X10^3/uL (0.83-4.51); Absolute Neutrophil Count 21.8 X10^3/uL (2.0-7.7)
[2024-09-01 21:46] VITALS: BP 92/80
[2024-09-01 22:04] VITALS: BP 124/88; PULSE 84; RESP 18; TEMP 37.2; O2SAT 99
[2024-09-01] MEDS: Ceftriaxone 1 GM/50 ML BAG IV (22:24)
--- NOTE | 2024-09-01 22:45 | PCM.HP.STD ---
HPI - General General Date of Admission: 09/01/24 HPI Narrative EILEEN REDDY, is a 64 F who presents to the hospital with a productive cough and shortness of breath as well as fevers and chills. This been going on for several days prior to arrival. She does have a history of a renal transplant and in the ER she was found to have a leukocytosis of 24,000 with a right lower lobe pneumonia. Viral panel was negative, and her other lab work is at baseline with a creatinine of 1.95. She is not requiring any oxygen and hemodynamically is stable. She did receive a dose of Rocephin and azithromycin in the ER. 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 Home Medications ?Medication ?Instructions ?Recorded ?Last Taken ?Type amlodipine 5 mg tablet 5 mg PO DAILY BLOOD PRESSURE 11/01/21 Unknown History everolimus (immunosuppressive) 0.5 0.5 mg PO Q12H TRANSPLANT 11/01/21 Unknown History mg tablet REJECTION PREVENTATIVE levothyroxine 50 mcg tablet 50 mcg PO DAILY THYROID 11/01/21 Unknown History omeprazole 20 mg capsule,delayed 20 mg PO DAILY ACID REFLUX 11/01/21 Unknown History release pravastatin 40 mg tablet 40 mg PO DAILY CHOLESTEROL 11/01/21 Unknown History prednisone 5 mg tablet 5 mg PO DAILY STEROID 11/01/21 Unknown History tacrolimus 1 mg capsule, 1 mg PO Q12H TRANSPLANT REJECTION 11/01/21 Unknown History immediate-release PREVENTATIVE aspirin 81 mg tablet,delayed 81 mg PO DAILY HEART HEALTH 10/12/23 09/01/24 History release (Adult Aspirin Regimen) ergocalciferol (vitamin D2) 50 mcg 50 mcg PO DAILY SUPPLEMENT 10/12/23 08/31/24 History (2,000 unit) capsule pantoprazole 40 mg tablet,delayed 40 mg PO DAILY ACID REFLUX 10/12/23 Unknown History release Allergy/AdvReac Type Severity Reaction Status Date / Time acetaminophen (From Allergy Hives Verified 09/01/24 23:34 Tylenol-Codeine #3) Cephalosporins Allergy Other Verified 09/01/24 23:34 codeine (From Allergy Hives Verified 09/01/24 23:34 Tylenol-Codeine #3) doxycycline Allergy Hives Verified 09/01/24 23:34 amoxicillin (From Augmentin) AdvReac Other Verified 09/01/24 23:34 clavulanic acid (From AdvReac Other Verified 09/01/24 23:34 Augmentin) Penicillins AdvReac Other Verified 09/01/24 23:34 Sulfa (Sulfonamide AdvReac Rash Verified 09/01/24 23:34 Antibiotics) Family History (Updated 09/01/24 @ 22:[address] Juaquin Preciado MD) Other Cancer Heart disease Surgical History Kidney transplant status Social History household members: spouse Smoking Status: Never smoker substance use type: does not use ROS Constitutional Constitutional: Reports chills, fatigue and fever(s); Denies malaise Eyes Eyes: Denies blurry vision ENT HEENT: Denies headache(s) or nasal discharge Cardiovascular Cardiovascular: Denies chest pain, dyspnea on exertion or syncope Respiratory/Chest Respiratory/Chest: Reports productive cough and shortness of breath at rest; Denies cough or shortness of breath with exertion Gastrointestinal Gastrointestinal: Denies constipation, diarrhea, nausea or vomiting Genitourinary Genitourinary: Denies dysuria Neurologic Neurologic: Denies focal weakness, numbness or tremor(s) Psychiatric Psychiatric: Denies anxiety or depression Vital Signs Vital Signs Vital Signs: 09/01/24 19:46 09/01/24 20:36 09/01/24 20:49 Temperature 99.1 F 98.9 F Temperature Source Oral Axillary Pulse Rate 104 H 82 Respiratory Rate 20 H 18 Respiratory Effort Normal Non-Labored Respiratory Pattern Normal Blood Pressure 143/86 H 92/80 Blood Pressure Mean 105 84 Pulse Ox 94 98 Oxygen Delivery Method Room Air Room Air 09/01/24 21:46 09/01/24 22:04 Temperature 98.9 F Temperature Source Pulse Rate 84 Respiratory Rate 18 Respiratory Effort Respiratory Pattern Blood Pressure 92/80 124/88 H Blood Pressure Mean 84 100 Pulse Ox 99 Oxygen Delivery Method Physical Exam Narrative General: Alert, Oriented x3, Cooperative, No apparent distress HEENT: Atraumatic, PERRLA, EOMI, Normocephalic Oral: Moist Mucosa Neck: Supple, No JVD Lungs: Diminished, Normal air movement, scattered rhonchi, No wheeze, No rales Cardiovascular: Regular rate, Regular Rhythm, Normal S1, Normal S2, No murmurs Abdomen: Soft, Non Tender, Non-Distended, No Hepato-splenomegaly Extremities: No edema, Capillary Refill Less than 3 Seconds Skin: No rashes, No breakdown Musculoskeletal: No Tenderness to Palpation of Joints or Extremities Neurological: No focal neurological deficits, Motor Exam 5/5 strength throughout, Sensory exam intact to light touch and pain Psych/Mental Status: Normal Affect, Appropriate Results Lab / Micro Data 09/01/24 20:10 09/01/24 20:10 Labs: Laboratory Results - last 24 hr 09/01/24 20:10: WBC 24.8 H, RBC 4.43, Hgb 12.9, Hct 38.9, MCV 87.8, MCH 29.1, MCHC 33.2, RDW Std Deviation 41.1, RDW Coeff of Sea 12.8, Plt Count 249, MPV 10.6, Neut % (Auto) Not Reportable, Absolute Neuts (auto) 21.8 H, Absolute Lymphs (auto) 0.24 L, Total Counted 100, Neutrophils % (Manual) 80 H, Band Neutrophils % 5, Lymphocytes % (Manual) 3 L, Monocytes % (Manual) 6, Eosinophils % (Manual) 2, Metamyelocytes % 2 H, Myelocytes % 2 H, Diff Path Review May foll, Toxic Granulation 2+, Platelet Estimate ADEQUATE, Plt Morphology Comment LARGE, Anisocytosis 1+, Sodium 139, Potassium 3.7, Chloride 109 H, Carbon Dioxide 24.0, Anion Gap 6, BUN 27 H, Creatinine 1.95 H, Est GFR (MDRD) Af Amer 33 L, Est GFR (MDRD) Non-Af 27 L, BUN/Creatinine Ratio 13.8, Glucose 188 H, Calcium 9.9, Total Bilirubin 0.40, AST 34, ALT 34, Alkaline Phosphatase 77, Total Protein 6.6, Albumin 3.3, Globulin 3.3, Albumin/Globulin Ratio 1.0, Lipase 18 09/01/24 21:10: Urine Color Yellow, Urine Clarity Sl. Cloudy, Urine pH 6.0, Ur Specific [place] 1.015, Urine Protein 100 H, Urine Glucose (UA) 250 H, Urine Ketones 15 H, Urine Occult Blood 150 H, Urine Nitrite Negative, Urine Bilirubin Negative, Urine Urobilinogen Normal, Ur Leukocyte Esterase Negative, Urine RBC 5-10 SEEN, Urine WBC 0-5 SEEN, Ur Squamous Epith Cells 0-5 SEEN, Urine Bacteria 2+, Hyaline Casts 0-5 SEEN, Urine Mucus 1+ Micro: Microbiology 09/01/24 20:25 Mucosa - Nose SARS-CoV-2, Influenza & RSV (PCR) - Final Imaging Radiology Impression Chest X-Ray 09/01/24 20:35 IMPRESSION: 1. Diffuse interstitial infiltrate/pneumonia at the RIGHT lung base. Remaining lung zones are clear. 2. Scattered granulomatous changes and stable nodule in RIGHT midlung. Electronically Signed: Elliot Good MD at 21:56 EST , Assessment & Plan Assessment/Plan (1) Community acquired pneumonia: PLAN: Plan 1. Community-acquired pneumonia of the right lower lobe in the setting of immunosuppression for renal transplant ? Will continue with her home medications for antirejection ? Continue with p.o. cefdinir and azithromycin ? She would like to stay for 1 night just to make sure that she feels better prior to going home ? She did receive a dose of Rocephin and azithromycin this evening ? Renal function is at baseline 2. DM 2 with CKD 4 ? Kidney function at baseline ? Continue sliding scale insulin ? Accu-Cheks ACHS ? Will hold her home medications ? Will monitor make adjustments as necessary 3. Essential HTN/HLD ? Continue with her home medications ? Continue pravastatin ? Blood pressure stable ? Will monitor make adjustments as necessary 4. GERD ? Stable ? Continue with PPI 5. Hypothyroidism ? Stable ? Continue with Synthroid DVT: SCDs 75 minutes was spent on direct patient care, including documentation as well as chart review and collaboration with colleagues Charges/Coding Visit Charges Inpatient E&M: 09632 Init Hosp L3
[2024-09-01] MEDS: Azithromycin 500 MG in 0.9% Normal Saline (250mL Bag) 250 ML 250 MG IV (22:55)
[2024-09-01 23:12] VITALS: BMI 32.1
[2024-09-01 23:13] VITALS: BP 132/72; PULSE 80; RESP 16; TEMP 36.9; O2SAT 93; BMI 32.1
[2024-09-02 00:29] LABS: Bedside Glucose 136 mg/dL (74-106)
[2024-09-02 04:46] LABS: Absolute Lymphocyte Count 1.28 X10^3/uL (0.83-4.51); Absolute Neutrophil Count 16.2 X10^3/uL (2.0-7.7); Basophil# 0.05 X10^3/uL; Basophil% 0.3 % (0-1); Eosinophil# 0.24 X10^3/uL; Eosinophils% 1.2 % (0-5); Hemoglobin 11.3 g/dL (12.0-15.0); Lymphocyte # 1.28 X10^3/ul (0.83-4.51); Lymphocyte % 6.6 % (19-41); Mean Corp Hgb Conc 32.3 g/dL (32-36); Mean Corpuscular Hgb 28.8 pg (27.0-32.0); Mean Corpuscular Volume 89.1 fL (81-99); Mean Platelet Vol. 10.8 fl (6.2-12.0); Monocyte% 8.2 % (0-10); NRBC Flagged by Analyzer 0 % (0-5); Neutrophil # 16.17 X10^3/uL (2.7-7.7); Neutrophil % 82.9 % (47-70); POSITIVE DIFFERENTIAL YES; POSITIVE MORPHOLOGY YES; Platelet Count 209 K/mm3 (150-450); RBC Distribution Width CV 12.7 % (11.6-14.6); RBC Distribution Width SD 42.1 fl (35.1-43.9); Red Blood Count 3.93 M/mm3 (4.2-5.4); White Blood Count 19.5 K/mm3 (4.4-11.0)
[2024-09-02 04:47] VITALS: BP 115/68; PULSE 82; RESP 16; TEMP 37.2; O2SAT 94
[2024-09-02 04:52] LABS: Differential Indicated SCAN CRITERIA MET
[2024-09-02 05:25] LABS: Anion Gap 4 (5-15); BUN 24 mg/dL (7-18); BUN/Creat Ratio 13.2 RATIO (10-20); Calcium,Total 8.8 mg/dL (8.5-10.1); Chloride 112 mmol/L (98-107); Creatinine, Serum 1.82 mg/dL (0.55-1.02); EST Glomerular Filtration Rate 30 mL/min (>60); Est Glom Filt Rate - Afr Amer 36 mL/min (>60); Estimated Creatinine Clearance 21.84 ml/min; Glucose 185 mg/dL (74-106); Potassium 3.6 mmol/L (3.5-5.1); Sodium Level 140 mmol/L (136-145)
[2024-09-02] MEDS: Levothyroxine 50 MCG Tablet PO (06:34)
[2024-09-02 06:48] LABS: Differential Comment SCANNED
[2024-09-02 06:55] LABS: Bedside Glucose 146 mg/dL (74-106)
[2024-09-02 07:35] VITALS: O2SAT 96
[2024-09-02 09:35] VITALS: BP 125/69; PULSE 90; RESP 16; TEMP 37.8; O2SAT 95
[2024-09-02] MEDS: amLODIPine 5 MG Tablet PO (09:36)
[2024-09-02] MEDS: Cefdinir 300 MG Capsule PO (09:36)
[2024-09-02] MEDS: Pantoprazole Sodium 40 MG Tablet PO (09:36)
[2024-09-02] MEDS: predniSONE 5 MG Tablet PO (09:36)
[2024-09-02] MEDS: Aspirin E.C. 81 MG Tablet PO (09:36)
[2024-09-02 09:50] VITALS: O2SAT 91; O2SAT 95
--- NOTE | 2024-09-02 10:15 | PCM.DC.SUM ---
Providers Date of Admission: 09/01/24 Date of Discharge: 09/02/24 Primary Care Physician: Dr. Tejal Calles MD Reason For Visit: PNEUMONIA Diagnosis Discharge Diagnosis (1) Community acquired pneumonia: Status: Acute Code(s): J18.9 - Pneumonia, unspecified organism Medications at Discharge Home Medications amlodipine 5 mg tablet 5 mg PO DAILY BLOOD PRESSURE 11/01/21 everolimus (immunosuppressive) 0.5 mg tablet 1 mg PO Q12H TRANSPLANT REJECTION PREVENTATIVE 11/01/21 levothyroxine 50 mcg tablet 50 mcg PO DAILY THYROID 11/01/21 omeprazole 20 mg capsule,delayed release 20 mg PO DAILY ACID REFLUX 11/01/21 pravastatin 40 mg tablet 40 mg PO DAILY CHOLESTEROL 11/01/21 prednisone 5 mg tablet 5 mg PO DAILY STEROID 11/01/21 tacrolimus 1 mg capsule, immediate-release 1 mg PO DAILY TRANSPLANT REJECTION PREVENTATIVE 11/01/21 aspirin 81 mg tablet,delayed release (Adult Aspirin Regimen) 81 mg PO DAILY HEART HEALTH 10/12/23 ergocalciferol (vitamin D2) 50 mcg (2,000 unit) capsule 50 mcg PO DAILY SUPPLEMENT 10/12/23 pantoprazole 40 mg tablet,delayed release 40 mg PO DAILY ACID REFLUX 10/12/23 azithromycin 250 mg tablet 500 mg (2 x 250 mg) PO 2200 4 days #8 tabs 09/02/24 cefdinir 300 mg capsule 600 mg (2 x 300 mg) PO DAILY 4 days #8 caps 09/02/24 tacrolimus 0.5 mg capsule, immediate-release 0.5 mg PO QHS 09/02/24 Hospital Course Operations None Procedures - (Chest x-ray) Summary of Care Provided Minutes Spent on Discharge: 35 Hospital Course: Patient is a 64-year-old female who presented to [facility] ED on 09/01/2024 with cough and worsening shortness of breath. Short hospital course as noted below. Patient discharged home in stable condition on 09/02. 1. Community-acquired pneumonia of the right lower lobe in setting of immunosuppression for renal transplant ? Chest x-ray on admit showed diffuse interstitial infiltrate/pneumonia with right lung base with remaining lung zones clear. Patient with low-grade fevers noted on admit and mild sputum production. Treated with IV azithromycin and ceftriaxone here. Infectious workup negative. Improved by hospital day 2 and stable on room air. Completed oxygen testing and did not require any supplemental oxygen on discharge. Discharged on cefdinir and azithromycin for 4 more days to complete 5-day course of antibiotics total. Continued home low-dose prednisone, tacrolimus and everolimus on discharge. 2. CKD stage IV ? Creatinine stable at baseline 1.8-1.9. 3. Normocytic anemia ? Hemoglobin stable at baseline 11-12. Chronic medical conditions: ? Class I obesity: BMI 32 on admit. Complicated hospital course, care and prognosis. ? Hypertension: Continue home amlodipine. ? Hypothyroidism: Continue home Synthroid. ? GERD: Continue home PPI. ? Hyperlipidemia: Continue home statin. Total clinical time spent by myself addressing the patient's medical issues, reviewing all the data, and collaborating with patient's care team: 35 minutes. Physical Exam Const alert, oriented x3 and no apparent distress Constitutional Narrative: Elderly female, class I obesity, mildly fatigued appearing, otherwise sitting up comfortably in bedside chair, conversing normally, in no acute distress. General Appearance: cooperative and comfortable HEENT normocephalic, head/scalp atraumatic, hearing grossly normal bilaterally, nasal mucous membranes and turbinates normal and moist oral mucous membranes Eyes PERRL, EOMs intact bilaterally and conjunctivae normal Neck full ROM Chest inspection of chest normal Resp normal respiratory effort and no use of accessory muscles Resp Narrative: Breathing comfortably on room air at rest. Mild crackles noted in bilateral lung bases but otherwise good air movement throughout with no wheezing noted. Cardio regular rate, regular rhythm, no murmurs and peripheral pulses 2+ throughout GI normal to inspection, nondistended, normoactive bowel sounds, soft to palpation, non-tender and non-distended Back/Spine normal ROM Extremity normal to inspection, full ROM and no pedal edema Skin no rashes or lesions noted Psych mental status grossly normal Weight / BMI Weight Weight: 51.8 kg Body Mass Index (BMI) 32.1 ABG / Lab / Microbiology Data 09/02/24 04:10 09/02/24 04:10 Laboratory: Laboratory Results - last 24 hr 09/01/24 20:10: WBC 24.8 H, RBC 4.43, Hgb 12.9, Hct 38.9, MCV 87.8, MCH 29.1, MCHC 33.2, RDW Std Deviation 41.1, RDW Coeff of Sea 12.8, Plt Count 249, MPV 10.6, Neut % (Auto) Not Reportable, Absolute Neuts (auto) 21.8 H, Absolute Lymphs (auto) 0.24 L, Total Counted 100, Neutrophils % (Manual) 80 H, Band Neutrophils % 5, Lymphocytes % (Manual) 3 L, Monocytes % (Manual) 6, Eosinophils % (Manual) 2, Metamyelocytes % 2 H, Myelocytes % 2 H, Diff Path Review May foll, Toxic Granulation 2+, Platelet Estimate ADEQUATE, Plt Morphology Comment LARGE, Anisocytosis 1+, Sodium 139, Potassium 3.7, Chloride 109 H, Carbon Dioxide 24.0, Anion Gap 6, BUN 27 H, Creatinine 1.95 H, Est GFR (MDRD) Af Amer 33 L, Est GFR (MDRD) Non-Af 27 L, BUN/Creatinine Ratio 13.8, Glucose 188 H, Calcium 9.9, Total Bilirubin 0.40, AST 34, ALT 34, Alkaline Phosphatase 77, Total Protein 6.6, Albumin 3.3, Globulin 3.3, Albumin/Globulin Ratio 1.0, Lipase 18 09/01/24 21:10: Urine Color Yellow, Urine Clarity Sl. Cloudy, Urine pH 6.0, Ur Specific [place] 1.015, Urine Protein 100 H, Urine Glucose (UA) 250 H, Urine Ketones 15 H, Urine Occult Blood 150 H, Urine Nitrite Negative, Urine Bilirubin Negative, Urine Urobilinogen Normal, Ur Leukocyte Esterase Negative, Urine RBC 5-10 SEEN, Urine WBC 0-5 SEEN, Ur Squamous Epith Cells 0-5 SEEN, Urine Bacteria 2+, Hyaline Casts 0-5 SEEN, Urine Mucus 1+ 09/02/24 00:03: POC Glucose 136 H 09/02/24 04:10: WBC 19.5 H, RBC 3.93 L, Hgb 11.3 L, Hct 35.0 L, MCV 89.1, MCH 28.8, MCHC 32.3, RDW Std Deviation 42.1, RDW Coeff of Sea 12.7, Plt Count 209, MPV 10.8, Immature Gran % (Auto) 0.800, Neut % (Auto) 82.9 H, Lymph % (Auto) 6.6 L, [place] % (Auto) 8.2, Eos % (Auto) 1.2, Baso % (Auto) 0.3, Absolute Neuts (auto) 16.2 H, Absolute Lymphs (auto) 1.28, Nucleated RBC % 0, Differential Comment SCANNED, Diff Path Review January, Sodium 140, Potassium 3.6, Chloride 112 H, Carbon Dioxide 24.0, Anion Gap 4 L, BUN 24 H, Creatinine 1.82 H, Estim Creat Clear Calc 21.84, Est GFR (MDRD) Af Amer 36 L, Est GFR (MDRD) Non-Af 30 L, BUN/Creatinine Ratio 13.2, Glucose 185 H, Calcium 8.8 09/02/24 06:33: POC Glucose 146 H Microbiology: Microbiology 09/01/24 20:25 Mucosa - Nose SARS-CoV-2, Influenza & RSV (PCR) - Final Radiography Diagnostic Testing: Radiology Impression Chest X-Ray 09/01/24 20:35 IMPRESSION: 1. Diffuse interstitial infiltrate/pneumonia at the RIGHT lung base. Remaining lung zones are clear. 2. Scattered granulomatous changes and stable nodule in RIGHT midlung. Electronically Signed: Elliot Good MD at 21:56 EST , D/C Instructions DC O2, CPAP, BIPAP Needs RN Home O2 Qualification: Home O2 Qualification: Is the patient on home oxygen No 09/02/24 09:50 Home O2 Qualification: AT REST 1- Pulse Ox at rest 95 09/02/24 09:50 Home O2 Qualification: WITH AMBULATION 1- Pulse Ox with ambulation 91 09/02/24 09:50 1- Oxygen Flow Rate with 0 09/02/24 09:50 ambulation Home O2 Discharge instructions: No Meaningful Use Info Meaningful Use Meaningful Use Diagnoses (Choose all that apply): None applicable Ischemic Stroke Statin Dosing Therapy Reference: STATIN DOSE THERAPY REFERENCE: * Patients > 75 years receive moderate or high dose statin therapy. * Patients 75 years or YOUNGER should receive HIGH intensity statin dose unless contraindicated. You will be required to document reason for non-treatment if statin daily dose does not meet guidelines. HIGH DOSE STATIN THERAPY DAILY Atorvastatin > than or = to 40 mg Rosuvastatin > than or = to 20 mg Amlodipine + Atorvastatin > than or = to 2.5/40 mg Ezetimibe + Simvastatin 10/80 mg Simvastatin 80mg Discharge Plan Admission Admit Date/Time: 09/01/24 22:34 Primary Reason for Your Visit: Shortness of breath with cough Attending Provider: Doug Castillo Primary Care Provider: Tejal Calles Consulting Providers: Juaquin Preciado Instructions Additional Instructions / Restrictions: ? Take azithromycin and cefdinir once daily for 4 more days to complete 5-day course of antibiotics total. ? Follow-up with your primary care doctor as needed. Discharge Orders/Prescriptions Prescriptions: New azithromycin 250 mg Tablet 500 mg PO 2200 4 Days Qty: 8 0RF cefdinir 300 mg capsule 600 mg PO DAILY 4 Days Qty: 8 0RF Continued pravastatin 40 mg Tablet 40 mg PO DAILY prednisone 5 mg Tablet 5 mg PO DAILY amlodipine 5 mg tablet 5 mg PO DAILY levothyroxine 50 mcg Tablet 50 mcg PO DAILY omeprazole 20 mg Capsule,Delayed Release(Dr/Ec) 20 mg PO DAILY tacrolimus 1 mg Capsule 1 mg PO DAILY everolimus (immunosuppressive) 0.5 mg Tablet 1 mg PO Q12H pantoprazole 40 mg tablet,delayed release (DR/EC) 40 mg PO DAILY aspirin [Adult Aspirin Regimen] 81 mg tablet,delayed release (DR/EC) 81 mg PO DAILY ergocalciferol (vitamin D2) 50 mcg (2,000 unit) capsule 50 mcg PO DAILY tacrolimus 0.5 mg capsule 0.5 mg PO QHS Referrals / Follow Up: Tejal Calles MD [Primary Care Provider] - Disposition Disposition (needs filled in before D/C Order can be placed): Home, Self Care Charges/Coding Visit Charges Inpatient E&M: 76931 Disch Hosp >30min
[2024-09-02] MEDS: EVEROLIMUS 0.5 MG TABLET 1 MG PO (10:50)
[2024-09-02] MEDS: Tacrolimus 0.5 MG Capsule 1 MG PO (10:50)
[2024-09-04 10:49] LABS: Pathologist Review Reviewed
[2024-09-04 10:57] LABS: Pathologist Review Reviewed
== END 2024-09-02 10:37 | disposition home or self-care (01) ==
LOC: ED 22:16 → PCU 09-02 05:34
PROVIDERS: Nurse Practitioner; Admitting Provider Family Medicine; Emergency Provider Emergency Medicine; PCP Internal Medicine; Visit Provider Hospitalist
DX: J18.9 Pneumonia, unspecified organism (principal); N18.4 Chronic kidney disease, stage 4 (severe); E11.40 Type 2 diabetes mellitus with diabetic neuropathy, unspecified; D64.9 Anemia, unspecified; Z79.82 Long term (current) use of aspirin; E03.9 Hypothyroidism, unspecified; K21.9 Gastro-esophageal reflux disease without esophagitis; Z68.32 Body mass index [BMI] 32.0-32.9, adult; I12.9 Hypertensive chronic kidney disease with stage 1 through stage 4 chronic kidney disease, or unspecified chronic kidney disease; Z79.890 Hormone replacement therapy; E78.5 Hyperlipidemia, unspecified; E66.811 Obesity, class 1; Z79.899 Other long term (current) drug therapy; Z94.0 Kidney transplant status; D47.2 Monoclonal gammopathy; Q96.0 Karyotype 45, X; G47.33 Obstructive sleep apnea (adult) (pediatric)
CPT/HCPCS: 36415; 71046; 80048; 80053; 81001; 82962; 83690; 85025; 87631; 96365; 96367; 96375; 99221; 99284; A4216; G0378; J2405

== ENCOUNTER 2024-09-22 19:53 | Emergency (ER) | payer MEDICARE, MEDICAID, SELFPAY ==
[2024-09-22 19:53] VITALS: BP 143/122; PULSE 106; RESP 18; TEMP 36.6; O2SAT 95
--- NOTE | 2024-09-22 20:11 | EDS_ITS ---
<Statement entered by Armand Griffin DO - 09/23/24 00:16> Patient was seen and examined with physician assistant auditor Ivory All components of the history and physical confirmed and agreed. History of present illness and physical exam: Patient is a 64-year-old female with past medical history type 2 diabetes, renal transplant 5 years ago on immunosuppressants and chronic prednisone who developed nausea vomiting and diarrhea this afternoon. Patient denies recent sick contacts. She states that she is gone about 5 times each. Patient denies any blood in her vomit or stool. Patient states that she vomited last around 5 PM. Review of systems: Agree with above Physical exam: Agree with above MDM Patient is a 64-year-old female who presented to the emergency department with a chief complaint of nausea vomiting diarrhea that started earlier today. Patient will have a workup performed here on the differential diagnose includes Melamin to viral gastroenteritis, COVID, flu, RSV. Once workup is obtained reviewed she will be reevaluated. Patient CBC was reviewed and showed evidence of leukocytosis of 18,000 however she has chronic elevated white blood cell count according to previous blood draw, hemoglobin stable 13.5, platelet count was noted be 226. Patient sodium normal 137, potassium 3.7, creatinine is 2.09 which is roughly around her baseline according to previous blood draws. Patient's AST and ALT were 38 and 36 respectively. Patient's respiratory swab was negative. Patient was given IV fluids and Zofran she is feeling much better and would like to go home at this point time. Patient was given oral challenge and tolerated this well without any evidence of emesis. She was given a prescription for Zofran and was advised to follow-up with her primary care physician at present. She is encouraged return with worsening symptoms or concerns. She is agreeable this plan all question concerns answered she was discharged home in stable condition. Final impression: Viral gastroenteritis Nausea and vomiting History of renal transplant Disposition: Patient will be discharged home in stable condition Supervising attending attestation: Armand Griffin [facility] History of Present Illness Chief Complaint: Nausea/Vomiting/Diarrhea Narrative Narrative: 64-year-old female with past medical history of type 2 diabetes, renal transplant 5 years ago on immunosuppresants and chronic prednisone developed nausea and vomiting this morning and diarrhea this afternoon. She states she is gone about 5 times each. No blood in her vomit or stool. No abdominal pain. She has no fever, chills, or upper respiratory symptoms. 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 Home Medications ?Medication ?Instructions ?Recorded ?Last Taken ?Type amlodipine 5 mg tablet 5 mg PO DAILY BLOOD PRESSURE 11/01/21 Unknown History everolimus (immunosuppressive) 0.5 1 mg PO Q12H TRANSPLANT REJECTION 11/01/21 Unknown History mg tablet PREVENTATIVE levothyroxine 50 mcg tablet 50 mcg PO DAILY THYROID 11/01/21 Unknown History omeprazole 20 mg capsule,delayed 20 mg PO DAILY ACID REFLUX 11/01/21 Unknown History release pravastatin 40 mg tablet 40 mg PO DAILY CHOLESTEROL 11/01/21 Unknown History prednisone 5 mg tablet 5 mg PO DAILY STEROID 11/01/21 Unknown History tacrolimus 1 mg capsule, 1 mg PO DAILY TRANSPLANT REJECTION 11/01/21 Unknown History immediate-release PREVENTATIVE aspirin 81 mg tablet,delayed 81 mg PO DAILY HEART HEALTH 10/12/23 09/01/24 History release (Adult Aspirin Regimen) ergocalciferol (vitamin D2) 50 mcg 50 mcg PO DAILY SUPPLEMENT 10/12/23 08/31/24 History (2,000 unit) capsule pantoprazole 40 mg tablet,delayed 40 mg PO DAILY ACID REFLUX 10/12/23 Unknown History release azithromycin 250 mg tablet 500 mg (2 x 250 mg) PO 2200 4 days 09/02/24 Unknown Rx #8 tabs cefdinir 300 mg capsule 600 mg (2 x 300 mg) PO DAILY 4 09/02/24 Unknown Rx days #8 caps tacrolimus 0.5 mg capsule, 0.5 mg PO QHS 09/02/24 Unknown History immediate-release ondansetron 4 mg disintegrating 4 mg PO Q8H PRN PRN Nausea #12 tabs 09/22/24 Unknown Rx tablet Allergy/AdvReac Type Severity Reaction Status Date / Time acetaminophen (From Allergy Hives Verified 01/11/25 19:58 Tylenol-Codeine #3) Cephalosporins Allergy Other Verified 09/22/24 19:58 codeine (From Allergy Hives Verified 09/22/24 19:58 Tylenol-Codeine #3) doxycycline Allergy Hives Verified 09/22/24 19:58 amoxicillin (From Augmentin) AdvReac Other Verified 09/22/24 19:58 clavulanic acid (From AdvReac Other Verified 09/22/24 19:58 Augmentin) Penicillins AdvReac Other Verified 09/22/24 19:58 Sulfa (Sulfonamide AdvReac Rash Verified 09/22/24 19:58 Antibiotics) Family History Other Cancer Heart disease Surgical History Kidney transplant status Social History household members: spouse Smoking Status: Never smoker substance use type: does not use ROS ROS ED ROS Narrative Constitutional: Negative for fever, chills, malaise. CVS: Negative for chest pain. Respiratory: Negative for shortness of breath, cough. GI: Negative for abdominal pain. Positive for nausea, vomiting, diarrhea. : Negative for dysuria, frequency. EXAM Physical Exam Narrative Exam Narrative: CONST: Patient sitting in no acute distress. EYES: Normal inspection. ENT: Normal inspection, moist mucous membranes. NECK: Normal inspection. RESP: No respiratory distress, CTAB. CVS: Regular rate and rhythm, no murmur, no gallop. ABD: Soft and nontender, no guarding or rebound, nondistended. Normal bowel sounds x 4. SKIN: Color normal, no rash, warm, dry, intact. EXTREMITIES: Normal appearance, no pedal edema. NEURO: Alert and answering questions appropriately. PSYCH: Normal affect. Const Vital Signs: 09/22/24 19:53 09/22/24 20:58 09/22/24 21:00 Temperature 98 F 97.9 F 98.1 F Temperature Source Temporal Oral Oral Pulse Rate 106 H 89 78 Respiratory Rate 18 16 16 Blood Pressure 143/122 H 138/89 H 136/98 H Blood Pressure Mean 129 105 110 Pulse Ox 95 98 98 Oxygen Delivery Method Room Air Room Air Room Air MDM MDM MDM Narrative Medical decision making narrative: History gathered from: Patient and spouse Differential includes but not limited to viral gastroenteritis, less likely intra-abdominal process since she has no pain or tenderness, MAXIMO, electrolyte abnormality 64-year-old female with 1 day of N/V/D. No abdominal pain. She appears well and nontoxic. She was tachycardic with heart rate of 106 and otherwise normal vital signs. She has no clinical signs of dehydration. Normal cardiopulmonary exam. Abdomen soft, nontender, nondistended. Labs overall are at her baseline. She has chronic leukocytosis and today WBC of 18.0 is lower than previous. This is likely from her daily prednisone. She has normal electrolytes and chronic kidney disease with BUN of 32, creatinine 2.09. Glucose is 200 with normal CO2 and anion gap. Respiratory viral swab is negative. After IV fluids and Zofran she is feeling better passed the p.o. challenge is keeping down water and cookies. She is comfortable going home with a Zofran prescription. I discussed return precautions and she was discharged in stable condition. Lab Data Attestation: I reviewed the patient's lab results. Labs: Laboratory Results - last 24 hr 09/22/24 20:16 WBC 18.0 H RBC 4.85 Hgb 13.5 Hct 41.7 MCV 86.0 MCH 27.8 MCHC 32.4 RDW Std Deviation 42.9 RDW Coeff of Sea 13.7 Plt Count 226 MPV 10.8 Immature Gran % (Auto) 1.200 H Neut % (Auto) 91.8 H Lymph % (Auto) 2.5 L [place] % (Auto) 4.1 Eos % (Auto) 0.1 Baso % (Auto) 0.3 Absolute Neuts (auto) 16.5 H Absolute Lymphs (auto) 0.45 L Nucleated RBC % 0 Sodium 137 Potassium 3.7 Chloride 107 Carbon Dioxide 21.0 Anion Gap 9 BUN 32 H Creatinine 2.09 H Est GFR (MDRD) Af Amer 30 L Est GFR (MDRD) Non-Af 25 L BUN/Creatinine Ratio 15.3 Glucose 200 H Calcium 9.8 Total Bilirubin 0.50 AST 38 H ALT 36 Alkaline Phosphatase 88 Total Protein 7.0 Albumin 3.6 Globulin 3.4 Albumin/Globulin Ratio 1.1 Discharge Plan Triage Chief Complaint: Nausea/Vomiting/Diarrhea ED Midlevel Provider: Ivory Vitale ED Provider: Griffin,Armand Dx/Rx/DC Orders Clinical Impression: Nausea and vomiting, Diarrhea, History of leukocytosis, History of chronic kidney disease Instructions: ED Diet Vomiting Diarrhea Prescriptions: New ondansetron 4 mg tablet,disintegrating 4 mg PO Q8H PRN PRN (Reason: Nausea) Qty: 12 0RF No Action pravastatin 40 mg Tablet 40 mg PO DAILY prednisone 5 mg Tablet 5 mg PO DAILY amlodipine 5 mg tablet 5 mg PO DAILY levothyroxine 50 mcg Tablet 50 mcg PO DAILY omeprazole 20 mg Capsule,Delayed Release(Dr/Ec) 20 mg PO DAILY tacrolimus 1 mg Capsule 1 mg PO DAILY everolimus (immunosuppressive) 0.5 mg Tablet 1 mg PO Q12H pantoprazole 40 mg tablet,delayed release (DR/EC) 40 mg PO DAILY aspirin [Adult Aspirin Regimen] 81 mg tablet,delayed release (DR/EC) 81 mg PO DAILY ergocalciferol (vitamin D2) 50 mcg (2,000 unit) capsule 50 mcg PO DAILY tacrolimus 0.5 mg capsule 0.5 mg PO QHS azithromycin 250 mg Tablet 500 mg PO 2200 4 Days Qty: 8 0RF cefdinir 300 mg capsule 600 mg PO DAILY 4 Days Qty: 8 0RF Primary Care Provider: Tejal Calles Referrals: Tejal Calles MD [Primary Care Provider] - Activity Restrictions/Additional Instructions: Take Zofran as needed for nausea or vomiting. Stay hydrated by sipping clear fluids throughout the day. When your symptoms improve slowly reintroduce bland foods. If your symptoms worsen, you cannot keep down fluids, you develop abdominal pain, or have blood in your vomit or stool please come back to the emergency room. Print Language: Hebrew
[2024-09-22] MEDS: 0.9% Normal Saline (1000mL) 1,000 ML 999 ML IV (20:19)
[2024-09-22] MEDS: Ondansetron 4 MG/2 ML Vial IV (20:19)
[2024-09-22 20:23] LABS: Absolute Lymphocyte Count 0.45 X10^3/uL (0.83-4.51); Absolute Neutrophil Count 16.5 X10^3/uL (2.0-7.7); Basophil# 0.05 X10^3/uL; Basophil% 0.3 % (0-1); Eosinophil# 0.01 X10^3/uL; Eosinophils% 0.1 % (0-5); Hematocrit 41.7 % (37-47); Hemoglobin 13.5 g/dL (12.0-15.0); Lymphocyte # 0.45 X10^3/ul (0.83-4.51); Lymphocyte % 2.5 % (19-41); Mean Corp Hgb Conc 32.4 g/dL (32-36); Mean Corpuscular Hgb 27.8 pg (27.0-32.0); Mean Platelet Vol. 10.8 fl (6.2-12.0); Monocyte# 0.74 X10^3/uL; Monocyte% 4.1 % (0-10); NRBC Flagged by Analyzer 0 % (0-5); Neutrophil # 16.51 X10^3/uL (2.7-7.7); Neutrophil % 91.8 % (47-70); POSITIVE DIFFERENTIAL YES; Platelet Count 226 K/mm3 (150-450); RBC Distribution Width CV 13.7 % (11.6-14.6); RBC Distribution Width SD 42.9 fl (35.1-43.9); Red Blood Count 4.85 M/mm3 (4.2-5.4)
[2024-09-22 20:39] LABS: ALB/GLOB Ratio 1.1 RATIO (0.9-2.4); AST(SGOT) 38 U/L (15-37); Alanine Aminotransfer ALT/SGPT 36 U/L (13-56); Albumin, Serum 3.6 g/dL (3.2-5.0); Alkaline Phosphatase 88 U/L (45-117); Anion Gap 9 (5-15); BUN 32 mg/dL (7-18); BUN/Creat Ratio 15.3 RATIO (10-20); Calcium,Total 9.8 mg/dL (8.5-10.1); Chloride 107 mmol/L (98-107); Creatinine, Serum 2.09 mg/dL (0.55-1.02); EST Glomerular Filtration Rate 25 mL/min (>60); Est Glom Filt Rate - Afr Amer 30 mL/min (>60); Globulin 3.4 g/dL (2.2-4.2); Glucose 200 mg/dL (74-106); Potassium 3.7 mmol/L (3.5-5.1); Sodium Level 137 mmol/L (136-145)
[2024-09-22 20:58] VITALS: BP 138/89; PULSE 89; RESP 16; TEMP 36.6; O2SAT 98
[2024-09-22 21:00] VITALS: BP 136/98; PULSE 78; RESP 16; TEMP 36.7; O2SAT 98
[2024-09-22 22:08] VITALS: BP 136/98; PULSE 78; RESP 16; TEMP 36.7; O2SAT 98
== END 2024-09-22 22:12 | disposition home or self-care (01) ==
PROVIDERS: Physician Assistant; Emergency Provider Emergency Medicine; PCP Internal Medicine; Referring Provider Emergency Medicine; Visit Provider Emergency Medicine
DX: A08.4 Viral intestinal infection, unspecified (principal); E11.22 Type 2 diabetes mellitus with diabetic chronic kidney disease; E11.43 Type 2 diabetes mellitus with diabetic autonomic (poly)neuropathy; N18.30 Chronic kidney disease, stage 3 unspecified; D72.829 Elevated white blood cell count, unspecified; K21.9 Gastro-esophageal reflux disease without esophagitis; D47.2 Monoclonal gammopathy; G47.33 Obstructive sleep apnea (adult) (pediatric); Z88.0 Allergy status to penicillin; Z88.2 Allergy status to sulfonamides; Z94.0 Kidney transplant status; Z79.82 Long term (current) use of aspirin; Z79.52 Long term (current) use of systemic steroids; Z79.899 Other long term (current) drug therapy
CPT/HCPCS: 80053; 85025; 87631; 96361; 96374; 99283; A4216; J2405